=== PATIENT | female | born 1970 | race Caucasian/White ===

== ENCOUNTER → 2018-01-18 09:50 | Outpatient (CLI) | payer OTHER, MEDICARE, SELFPAY ==
--- NOTE | 2018-01-18 10:01 | XR_ITS ---
XR elbow LT min 3V COMPARISON: None HISTORY: Suspect olecranon bursitis TECHNIQUE: AP lateral and oblique views FINDINGS: The supracondylar humerus appears intact. However there are several small bone fragments with smooth mildly sclerotic borders the largest adjacent to the medial epicondyles the humerus just medial to the olecranon fossa. There are couple small bone fragments with smooth borders adjacent to the lateral epicondyle of the humerus. There is minimal spurring of the radial head. The soft tissues are normal with no abnormal fat pad sign noted. There is no soft tissue swelling of the olecranon bursa region. IMPRESSION: Probable posttraumatic changes involving the elbow and suprahilar humerus no acute fracture or soft tissue swelling noted
== END ==
PROVIDERS: PCP Nurse Practitioner Family; Visit Provider Nurse Practitioner Family
DX: M70.22 Olecranon bursitis, left elbow (principal)
CPT/HCPCS: 73080

== ENCOUNTER → 2018-09-09 08:59 | Outpatient (CLI) | payer OTHER, MEDICARE, SELFPAY ==
--- NOTE | 2018-09-09 09:04 | MM_ITS ---
MM Dig screening mamm BI w/CAD ORDERING PHYSICIAN : Danica Hawkins PATIENT AGE: 47 years GENDER: Female COMPARISON: August 2016,. August 2017, July 2012 INDICATION: ITS.REASON: SCREENING. Routine screening. No hormones no new complaints Family history. Maternal cousin. Paternal grandmother TECHNIQUE: Standard CC and MLO images were obtained. R2 CAD reviewed. FINDINGS: . Low-density fatty breast with generalized fatty replacement bilaterally. No new areas of significant concern. No dominant mass nor suspicious calcifications.. CAD computer review highlights no areas of concern either Stable benign calcifications bilaterally . Bilateral follow-up in one year recommended.. IMPRESSION: Negative, Stable bilateral mammogram . Follow-up in one year recommended Low-density breas with generalized fatty replacement. BI-RADS Category: 1 Negative RECOMMENDED FOLLOW-UP: 1YR 1 YEAR FOLLOW-UP (A letter has been sent to the patient regarding results of the study.)
== END ==
PROVIDERS: PCP Nurse Practitioner Family; Visit Provider Nurse Practitioner Family
DX: Z12.31 Encounter for screening mammogram for malignant neoplasm of breast (principal)
CPT/HCPCS: 77067

== ENCOUNTER → 2018-12-20 12:34 | Outpatient (CLI) | payer OTHER, MEDICARE, SELFPAY ==
--- NOTE | 2018-12-20 12:41 | XR_ITS ---
XR elbow LT min 3V HISTORY: ITS.REASON: left elbow pain/ swelling ORDERING PHYSICIAN: Stephenie Shaw MD PATIENT AGE: 48 years COMPARISON: 01/18/2018 FINDINGS: No acute fracture or dislocation is evident. Well-circumscribed calcifications are present along the medial epicondylar region and also dorsal to the distal aspect of the capitellum. These are not significant changed. These may represent multiple synovial osteochondromas or could represent sequela from prior trauma. No acute fracture or dislocation. No displaced fat pad. There is some spurring of the radial neck anteriorly. IMPRESSION: 1. No acute finding. 2. Multiple loose bodies of the elbow joint with mild osteoarthritic change
== END ==
PROVIDERS: PCP Nurse Practitioner Family; Visit Provider Orthopaedic Surgery
DX: M25.522 Pain in left elbow (principal)
CPT/HCPCS: 73080

== ENCOUNTER 2019-01-14 09:40 | Outpatient (RCR) | payer OTHER, MEDICARE, SELFPAY | END 2019-01-14 09:45 | disposition home or self-care (01) | LOC: OT 09:40 | PROVIDERS: Visit Provider Orthopaedic Surgery Hand Surgery | DX: M25.522 Pain in left elbow (principal) | CPT/HCPCS: 97014; 97165; G0283 ==

== ENCOUNTER → 2019-04-07 08:42 | Outpatient (CLI) | payer OTHER, MEDICARE, SELFPAY ==
--- NOTE | 2019-04-07 08:51 | XR_ITS ---
XR chest 2V HISTORY: ITS.REASON: COUGH ORDERING PHYSICIAN: Danica Hawkins APRN PATIENT AGE: 48 years COMPARISON: None FINDINGS: The cardiomediastinal silhouette and pulmonary vascularity are within normal limits. Increased markings are present in the right infrahilar region consistent with an area of patchy infiltrate. The remaining lungs are clear. No acute bony anomalies. IMPRESSION: Patchy infiltrate in the right infrahilar region
== END ==
PROVIDERS: PCP Family Medicine; Visit Provider Nurse Practitioner Family
DX: R05 Cough (principal)
CPT/HCPCS: 71046

== ENCOUNTER → 2019-07-14 12:05 | Outpatient (CLI) | payer OTHER, MEDICARE, SELFPAY ==
--- NOTE | 2019-07-14 12:15 | XR_ITS ---
PROCEDURE: XR SHOULDER RT MIN 2V CLINICAL INDICATION: RT SHOULDER PAIN COMPARISON: CXR CHEST(2 VIEWS-NOT PORTABLE) from 07/19/2017 FINDINGS: No fracture, dislocation, lytic change, or blastic change evident. No significant degenerative change. There is a circular density projecting over the lateral aspect of the scapula and could be due to artifact or perhaps a lymph node. IMPRESSION: No acute findings. Dictated by: Rocco Douglas MD 07/14/2019 15:04 Electronically signed by Rocco Douglas MD in [place] 07/14/2019 15:04
== END ==
PROVIDERS: PCP Nurse Practitioner Family; Visit Provider Nurse Practitioner Family
DX: M25.511 Pain in right shoulder (principal)
CPT/HCPCS: 73030

== ENCOUNTER → 2019-07-22 08:36 | Outpatient (CLI) | payer OTHER, MEDICARE, SELFPAY ==
--- NOTE | 2019-07-22 08:42 | XR_ITS ---
PROCEDURE: XR HUMERUS RT CLINICAL INDICATION: RT ARM PAIN COMPARISON: No exams were available for comparison FINDINGS: No fracture or dislocation. No lytic or blastic change. There is normal mineralization. The joint spaces are well-preserved. No significant degenerative/arthritic changes. No erosive changes evident. Other findings:None. IMPRESSION: Negative right humerus Dictated by: Rocco Douglas MD 07/22/2019 10:13 Electronically signed by Rocco Douglas MD in [place] 07/22/2019 10:13
== END ==
PROVIDERS: PCP Nurse Practitioner Family; Visit Provider Nurse Practitioner Family
DX: M79.601 Pain in right arm (principal)
CPT/HCPCS: 73060

== ENCOUNTER 2019-08-28 11:00 | Outpatient (RCR) | payer OTHER, MEDICARE, SELFPAY | END 2019-08-28 11:05 | disposition home or self-care (01) | LOC: OT 11:00 | PROVIDERS: PCP Nurse Practitioner Family; Visit Provider Orthopaedic Surgery | DX: M79.621 Pain in right upper arm (principal) | CPT/HCPCS: 97014; 97035; 97110; 97166; G0283 ==

== ENCOUNTER → 2019-09-19 07:48 | Outpatient (CLI) | payer OTHER, MEDICARE, SELFPAY ==
--- NOTE | 2019-09-19 07:51 | MM_ITS ---
PROCEDURE: MM DIG SCREENING MAMM BI W/CAD CLINICAL INDICATION: ROUTINE There is a history of breast cancer patient's maternal cousin and paternal grandmother. COMPARISON: [facility] DIG MAMM-SCREEN DIXIE from 08/30/2016 [facility] DIG MAMM-SCREEN DIXIE W/CAD from 09/03/2017 [facility] MM Dig screening mamm BI w/CAD from 09/09/2018 TECHNIQUE: Standard CC and MLO images were obtained. R2 CAD reviewed. FINDINGS: The breasts are composed primarily of fat with minimal scattered fibroglandular densities in each breast. There are few benign-appearing micro and macro calcifications in each breast. There is no suspicious lesion and no suspicious microcalcifications. IMPRESSION: Fatty type breast parenchyma with no suspicious lesions seen BI-RAD Category: 2 Benign Finding(s) FOLLOW-UP: 1YR 1 Year Follow-up (A letter has been sent to the patient regarding results of the study.) Dictated by: Dr. Isaias Sinha MD 09/21/2019 15:[address] Isaias Sinha MD in [place] 09/21/2019 15:32
== END ==
PROVIDERS: PCP Nurse Practitioner Family; Visit Provider Nurse Practitioner Family
DX: Z12.31 Encounter for screening mammogram for malignant neoplasm of breast (principal)
CPT/HCPCS: 77067

== ENCOUNTER → 2020-04-02 13:23 | Outpatient (CLI) | payer OTHER, MEDICARE, SELFPAY ==
--- NOTE | 2020-04-02 13:27 | US_ITS ---
PROCEDURE: US THYROID CLINICAL INDICATION: HYPOTHYROIDISM,PARTIAL THYROIDECTOMY,H/O THYROID CA COMPARISON: THY US THYROID from 08/30/2016 FINDINGS: There has been a prior right thyroidectomy and partial removal of the isthmus. The left lobe measures 3.6 x 1 x 1.4 cm with some heterogeneous echogenicity. There is a slightly hypoechoic 6 x 4 mm nodule in the upper pole and a mixed heterogeneous nodule measuring 5 x 6 mm in the lower pole. These are T rads level 2. Suggest 6 month follow-up IMPRESSION: Prior right thyroidectomy. Two small nodules on the left. Recommend six-month follow-up Dictated by: Rocco Douglas MD 04/03/2020 11:07 Electronically signed by Rocco Douglas MD in [place] 04/03/2020 11:07
== END ==
PROVIDERS: PCP Nurse Practitioner Family; Visit Provider Nurse Practitioner Family
DX: E03.9 Hypothyroidism, unspecified (principal); Z90.09 Acquired absence of other part of head and neck; Z85.850 Personal history of malignant neoplasm of thyroid
CPT/HCPCS: 76536

== ENCOUNTER → 2020-09-03 10:27 | Outpatient (CLI) | payer OTHER, MEDICARE, SELFPAY ==
--- NOTE | 2020-09-03 10:32 | US_ITS ---
PROCEDURE: US KIDNEY CLINICAL INDICATION: HX OF RENAL CALCULI, RT FLANK PAIN COMPARISON: No exams were available for comparison FINDINGS: The right kidney is [id number]. No hydronephrosis, cortical thinning, or renal mass or perinephric fluid collection is evident. The left kidney is [id number]. No hydronephrosis, cortical thinning, or renal mass or perinephric fluid collection is evident. There is some mild nonspecific lobulation of the cortex of the left kidney inferiorly IMPRESSION: Unremarkable bilateral renal ultrasound Dictated by: Rocco Douglas MD 09/03/2020 11:22 Rocco Douglas MD in [place] 09/03/2020 11:22
== END ==
PROVIDERS: PCP Family Medicine; Visit Provider Nurse Practitioner Family
DX: R10.9 Unspecified abdominal pain (principal); Z87.442 Personal history of urinary calculi
CPT/HCPCS: 76770

== ENCOUNTER → 2020-09-10 16:07 | Outpatient (CLI) | payer OTHER, MEDICARE, SELFPAY ==
--- NOTE | 2020-09-10 16:09 | MM_ITS ---
PROCEDURE: MM DIG SCREENING MAMM BI W/CAD Digital Breast Tomosynthesis Included CLINICAL INDICATION: SCREENING There is a history of breast cancer in the patient's maternal cousin and paternal grandmother. COMPARISON: MG [facility] DIG MAMM-SCREEN DIXIE W/CAD from 09/03/2017 MG [facility] MM Dig screening mamm BI w/CAD from 09/09/2018 MG MM DIG SCREENING MAMM BI W/CAD from 09/19/2019 TECHNIQUE: Standard CC and MLO images and 3D Tomosynthesis was obtained. R2 CAD reviewed. FINDINGS: The breasts are composed primarily of fat with minimal scattered fibroglandular densities in each breast. There are few benign-appearing micro and macrocalcifications in each breast. There is no suspicious lesion in either breast there is a stable tiny benign-appearing nodular density lower inner quadrant left breast. There is no suspicious lesion and no suspicious microcalcifications. IMPRESSION: Type breast parenchyma with no suspicious lesions seen BI-RAD Category: 2 Benign Finding(s) FOLLOW-UP: 1YR 1 Year Follow-up (A letter has been sent to the patient regarding results of the study.) Dictated by: Dr. Isaias Sinha MD 09/14/2020 13:54 Dr. Isaias Sinha MD in [place] 09/14/2020 13:54
== END ==
PROVIDERS: PCP Nurse Practitioner Family; Visit Provider Nurse Practitioner Family
DX: Z12.31 Encounter for screening mammogram for malignant neoplasm of breast (principal)
CPT/HCPCS: 77063; 77067

== ENCOUNTER → 2021-03-14 16:01 | Outpatient (CLI) | payer OTHER, MEDICARE, SELFPAY ==
[2021-03-14 17:05] LABS: Alanine Aminotransferase 23 U/L (12-78); Albumin Level 4.4 g/dl (3.5-5.0); Albumin/Globulin Ratio 1.5 (1.1-1.8); Alkaline Phosphatase 131 U/L (38-126); Anion Gap 11.1 mEq/L (5-15); Aspartate Amino Transferase 28 U/L (14-36); Bilirubin,Total 0.5 mg/dl (0.2-1.3); Blood Urea Nitrogen 20 mg/dl (7-17); Calcium 9.9 mg/dl (8.4-10.2); Carbon Dioxide 28 mmol/L (22.0-30.0); Chloride 104 mmol/L (98-107); Estimated Glomerular Filt Rate 76 ml/min (>60); GFR (African American) 92 ML/MIN (>60); Globulin 2.9 g/dL (1.3-3.2); Glucose 93 mg/dl (74-100); Potassium 4.1 mmoL/L (3.5-5.1); Sodium 139 mmol/L (136-145); Total Protein,Serum 7.3 g/dl (6.3-8.2)
[2021-03-14 17:21] LABS: Free T4 (Free Thyroxine) 1.43 ng/dl (0.78-2.19)
[2021-03-14 17:36] LABS: Thyroid Stimulating Hormone 0.41 uIU/mL (0.465-4.68)
[2021-03-16 14:18] LABS: Triiodothyronine (T3) Free 2.6 pg/mL (2.0-4.4)
== END ==
PROVIDERS: Visit Provider Nurse Practitioner Family
DX: E03.9 Hypothyroidism, unspecified (principal); R60.9 Edema, unspecified
CPT/HCPCS: 36415; 80053; 84439; 84443; 84481

== ENCOUNTER → 2021-04-26 09:56 | Outpatient (POV) | payer OTHER, MEDICARE, SELFPAY | PROVIDERS: Visit Provider Dermatology | DX: Z00.00 Encounter for general adult medical examination without abnormal findings (principal) ==

== ENCOUNTER → 2021-09-07 12:23 | Outpatient (CLI) | payer MEDICARE, SELFPAY ==
[2021-09-07 13:06] LABS: Basophils # 0.1 K/mm3 (0-0.2); Basophils % 0.8 % (0.1-2.0); Eosinophils # 0.1 K/mm3 (0.0-0.4); Eosinophils % 1.2 % (0.1-12.0); Hematocrit 44.2 % (37.0-47.0); Hemoglobin 14.5 g/dL (12.2-16.2); Lymphocytes # 1.9 K/mm3 (0.7-4.5); Lymphocytes % 23.9 % (10-50); Mean Corpuscular HGB Conc 32.7 g/dL (31.8-35.4); Mean Corpuscular Hemoglobin 30.2 pg (27.0-31.2); Mean Corpuscular Volume 92.5 fl (81-99); Mean Platelet Volume 8.6 fl (7.4-10.4); Monocytes # 0.3 K/mm3 (0.1-1.0); Monocytes % 4.3 % (1.7-9.3); Neutrophils # 5.6 K/mm3 (1.8-7.8); Neutrophils % 69.9 % (37.0-80.0); Platelet Count 319 K/mm3 (142-424); Red Blood Count 4.78 M/mm3 (4.20-5.40); Red Cell Distribution Width 12.7 % (11.5-17.5); White Blood Count 8.1 K/mm3 (4.8-10.8)
[2021-09-07 15:13] LABS: Free T4 (Free Thyroxine) 1.92 ng/dl (0.78-2.19)
[2021-09-07 15:14] LABS: 25-OH Vitamin D, Total 35.6 ng/mL (30-100)
[2021-09-07 15:34] LABS: Thyroid Stimulating Hormone < 0.02 uIU/mL (0.465-4.68)
[2021-09-07 15:38] LABS: Ferritin 43.7 ng/ml (6.24-137)
[2021-09-09 09:24] LABS: Triiodothyronine (T3) Free 3.6 pg/mL (2.0-4.4)
== END ==
PROVIDERS: Visit Provider Nurse Practitioner Family
DX: D50.9 Iron deficiency anemia, unspecified (principal); E04.1 Nontoxic single thyroid nodule; E03.9 Hypothyroidism, unspecified; E55.9 Vitamin D deficiency, unspecified
CPT/HCPCS: 36415; 82306; 82728; 84439; 84443; 84481; 85025

== ENCOUNTER → 2021-09-16 14:48 | Outpatient (CLI) | payer MEDICARE, SELFPAY ==
--- NOTE | 2021-09-16 14:53 | MM_ITS ---
PROCEDURE INFORMATION: Exam: MG Bilateral Screening 3D Mammography Exam date and time: 09/16/2021 2:53 PM Age: 50 years old Clinical indication: Screening exam; Family history of breast cancer TECHNIQUE: Imaging protocol: Bilateral screening tomosynthesis and 2D mammography including computer-aided detection (CAD) when performed. COMPARISON: 1. MG MM DIG SCREENING MAMM BI W/CAD 09/10/2020 4:22 PM 2. MG MM DIG SCREENING MAMM BI W/CAD 09/19/2019 8:11 AM 3. MG [facility] MM Dig screening mamm BI w/CAD 09/09/2018 9:26 AM FINDINGS: MAMMOGRAPHY: Breast composition: There are scattered areas of fibroglandular density. Mass: No suspicious masses. Architectural distortion: No suspicious distortion. Calcifications: No suspicious calcifications. Asymmetric density: None. Skin thickening: None. Axillary adenopathy: None. IMPRESSION: No mammographic evidence of malignancy. Annual screening is recommended unless otherwise clinically indicated. ASSESSMENT: BI-RADS Category 1: Negative
== END ==
PROVIDERS: PCP Nurse Practitioner Family; Visit Provider Nurse Practitioner Family
DX: Z12.31 Encounter for screening mammogram for malignant neoplasm of breast (principal)
CPT/HCPCS: 77063; 77067

== ENCOUNTER → 2021-09-20 15:51 | Outpatient (CLI) | payer MEDICARE, SELFPAY | PROVIDERS: PCP Nurse Practitioner Family; Visit Provider Nurse Practitioner | DX: U07.1 COVID-19 (principal) | CPT/HCPCS: C9803; U0003; U0005 ==

== ENCOUNTER 2021-10-14 05:45 | Inpatient (IN) | payer MEDICARE, SELFPAY ==
[2021-10-14] VITALS (18 sets, daily range): BP systolic 92–147; BP diastolic 56–93; PULSE 56–88; RESP 16–22; TEMP 36.6–37.2; O2SAT 95–100; BMI 36.7; BMI 36.8
--- NOTE | 2021-10-14 | IR_ITS ---
APPROVED REPORT Patient Location: [employer] Technical Officer: MANFRED Shelton RT (R) PROCEDURES Left heart catheterization Left ventriculogram Selective coronary angiogram Thrombectomy to the mid dominant right coronary artery followed by drug-eluting stenting to the mid to distal dominant right coronary INDICATION Acute inferior lateral ST elevation myocardial infarction, Coronary artery disease Informed consent was obtained prior to the procedure. COMPLICATIONS None Estimated Blood Loss: Less than 10 mls TECHNIQUE One percent lidocaine used to anesthetize the right anterior aspect of the wrist. The right radial artery was accessed via the Seldinger technique. A 6 Bulgarian sheath was placed in the right radial artery. 2.5 mg of verapamil, 800 mcg of nitroglycerin, 1mg Lidocaine and 5000 U Heparin were given through the arterial sheath. The Cvergenx 1 catheter was also used to perform selective coronary angiogram. Choice PT extra-support wire was used to traverse the occlusion and a penumbra mechanical aspiration catheter was used to remove a large thrombus and restored SCOT-3 flow. Following this a 3.5 x 26 mm resolute Piedmont stent was deployed at 14 zenon reducing the critical stenosis to 0%. At the end of the procedure the same catheter was used to perform left coronary angiography as well as left heart catheterization and left ventriculogram at the end of the procedure the sheath was removed good hemostasis was achieved using Traclet band. At the end the procedure the patient was transferred to the postop holding her stable condition. ANGIOGRAPHIC RESULTS The left main artery Normal The left anterior descending artery Mild 10% luminal irregularities The circumflex artery Nondominant mild 10% luminal irregularities The right coronary artery Large dominant and initially occluded at mid vessel. Following drug-eluting stenting the vessel had mild 10% luminal irregularities with wide patency and in line SCOT-3 flow into a large posterior lateral branch and large posterior descending artery The LEACH ventriculogram reveals Ejection fraction 50% with inferior hypokinesis The left ventricular end-diastolic pressure 20 mmHg IMPRESSION Acute occlusion of a large dominant right coronary artery with successful mechanical aspiration followed by drug-eluting stenting restoring SCOT-3 flow Hypokinesis of the inferior wall Mildly elevated LVEDP PLAN 1. Brilinta 90 twice daily plus aspirin 81 mg daily 2. Supportive care for the next 48 hours 3. Official echocardiogram to better quantitate ejection fraction 4. GENA inhibitor's and beta-blockers once hemodynamically stable 5. LDL of 55 to be achieved with high intensity statin 6. Cardiac rehabilitation Electronically signed by : Arley Tolentino MD 10/14/2021 06:52:36
--- NOTE | 2021-10-14 05:54 | XR_ITS ---
PROCEDURE INFORMATION: Exam: XR Chest Exam date and time: 10/14/2021 5:54 AM Age: 51 years old Clinical indication: Sternal or substernal pain; Additional info: Cp TECHNIQUE: Imaging protocol: XR of the chest. Views: 1 view. COMPARISON: CR CXR CHEST(2 VIEWS-NOT PORTABLE) 07/19/2017 12:33 PM FINDINGS: Lungs: Unremarkable. No consolidation. Pleural spaces: Unremarkable. No pleural effusion. No pneumothorax. Heart/Mediastinum: Unremarkable. No cardiomegaly. Bones/joints: Unremarkable. IMPRESSION: No acute findings.
--- NOTE | 2021-10-14 05:56 | PC.NURSE ---
0540 EKG performed with questionable ST elevation noted 0541- reviewed EKG and STEMI alert called. Mason contacted [facility] and orders for 180mg Brilinta PO, aspirin 324mg PO, and 10,000units heparin IV. Pt placed in gown and Zoll monitor applied. Pt groins and right wrist prepped using trimmers. Pt placed on 2LNC and cath consent signed by pt.
[2021-10-14 05:59] LABS: Basophils # 0.1 K/mm3 (0-0.2); Eosinophils # 0.2 K/mm3 (0.0-0.4); Eosinophils % 1.7 % (0.1-12.0); Hematocrit 40.8 % (37.0-47.0); Hemoglobin 13.5 g/dL (12.2-16.2); Lymphocytes # 2.6 K/mm3 (0.7-4.5); Lymphocytes % 24.9 % (10-50); Mean Corpuscular HGB Conc 33.1 g/dL (31.8-35.4); Mean Corpuscular Hemoglobin 29.4 pg (27.0-31.2); Mean Corpuscular Volume 88.7 fl (81-99); Monocytes # 0.4 K/mm3 (0.1-1.0); Monocytes % 3.4 % (1.7-9.3); Neutrophils # 7.3 K/mm3 (1.8-7.8); Platelet Count 384 K/mm3 (142-424); Red Blood Count 4.59 M/mm3 (4.20-5.40); Red Cell Distribution Width 13.5 % (11.5-17.5); White Blood Count 10.6 K/mm3 (4.8-10.8)
[2021-10-14 06:00] LABS: Coronavirus 19, PCR Not Detected (NotDetected); Influenza A, PCR Not Detected (NotDetected); Influenza B, PCR Not Detected (NotDetected)
--- NOTE | 2021-10-14 06:01 | HMH.EDCP ---
ED Disposition Clinical Impression: Hypothyroidism (acquired), Obesity (BMI 30-39.9) ST elevation myocardial infarction (STEMI) Qualifiers: Involved coronary artery: unspecified coronary artery Qualified Code(s): I21.3 - ST elevation (STEMI) myocardial infarction of unspecified site Disposition: Admitted As Inpatient Condition on Discharge: Serious - Critical Care Critical Care Time: No Attestation: On , the high probability of a clinically significant, sudden or life threatening deterioration of the following system(s) required my full and direct attention, intervention and personal management. The time I documented below is in addition to time spent performing reported procedures but includes the following listed in this critical care notation. Medical Decision Making - Medical Records Medical records reviewed: Yes: I reviewed the patient's medical records. - Arias Inquiry Pt receiving controlled substance: No Vital Signs: 10/14/21 05:46 Temperature 98.1 F Temperature Source Oral Pulse Rate [Apical] 62 Respiratory Rate 22 Blood Pressure [Right Arm] 144/85 H Blood Pressure Mean [Right Arm] 104 Blood Pressure Source [Right Arm] Automatic Cuff Blood Pressure Position [Right Arm] Sitting 02 Sat by Pulse Oximetry 97 Oxygen Delivery Method Room Air - Lab Data Lab results reviewed: Yes: I reviewed the patient's lab results. Lab Results 10/14/21 05:48: WBC 10.6, RBC 4.59, Hgb 13.5, Hct 40.8, MCV 88.7, MCH 29.4, MCHC 33.1, RDW 13.5, Plt Count 384, MPV 8.0, Neut % (Auto) 69.0, Lymph % (Auto) 24.9, [place] % (Auto) 3.4, Eos % (Auto) 1.7, Baso % (Auto) 1.0, Neut # (Auto) 7.3, Lymph # (Auto) 2.6, [place] # (Auto) 0.4, Eos # (Auto) 0.2, Baso # (Auto) 0.1 10/14/21 05:48: Sodium 140, Potassium 3.4 L, Chloride 103, Carbon Dioxide 26, Anion Gap 14.4, BUN 13, Creatinine 0.80, Estimated Creat Clear 127, Estimated GFR 76, Est GFR ( Amer) 92, Glucose 156 H, Calcium 9.7, Total Bilirubin 0.4, Direct Bilirubin 0.1, Conjugated Bilirubin 0.0, Indirect Bilirubin 0.3, Unconjugated Bilirubin 0.2, AST 32, ALT 22, Alkaline Phosphatase 128 H, Troponin I 0.02, Total Protein 7.7, Albumin 4.3 10/14/21 05:58: SARS-CoV-2 (PCR) Not detected, Influenza A Untype (PCR) Not detected, Influenza Type B (PCR) Not detected Result diagrams: 10/14/21 05:48 10/14/21 05:48 Orders (Tests/Meds): ED MEDICATIONS Generic Name Dose Route Start Last Admin Trade Name Freq PRN Reason Stop Dose Admin Diphenhydramine HCl 50 mg 10/14/21 06:12 Diphenhydramine 50mg/Ml Vial IV 10/14/21 06:13 ONCE ONE Fentanyl Citrate 25 mcg 10/14/21 06:12 Fentanyl 100mcg/2ml Vial IV 10/15/21 06:12 Q3MINP PRN Moderate to Severe Pain Fentanyl Citrate 50 mcg 10/14/21 06:12 Fentanyl 100mcg/2ml Vial IV 10/15/21 06:12 Q3MINP PRN Moderate to Severe Pain Fentanyl Citrate 25 mcg 10/14/21 06:12 Fentanyl 250mcg/5ml Vial IV 10/15/21 06:12 Q3MINP PRN Moderate to Severe Pain Fentanyl Citrate 50 mcg 10/14/21 06:12 Fentanyl 250mcg/5ml Vial IV 10/15/21 06:12 Q3MINP PRN Moderate to Severe Pain Flumazenil 0.2 mg 10/14/21 06:12 Flumazenil 0.1mg/Ml 5ml Vial IV 10/14/21 23:00 NEEDED PRN Sedation Heparin Sodium (Porcine) 10,000 unit 10/14/21 06:12 Heparin 1,000 Units/Ml 10ml Vial (Rug Repairer) IV 10/14/21 10:12 NEEDED PRN [facility] Customer Care Specialist Heparin Sodium/Sodium Chloride 3,000 unit 10/14/21 06:12 Heparin 1,000 Units/500ml Ns (Rug Repairer) IV 10/14/21 06:13 ONCE ONE Sodium Chloride 1,000 mls @ 25 mls/hr 10/14/21 06:15 Sod Chlor 0.9% 1000ml Bag IV 10/15/21 06:12 .Q25H ADAM Lidocaine HCl 20 ml 10/14/21 06:12 Lidocaine 1% 10ml Mdv IJ 10/14/21 06:13 ONCE ONE Lidocaine HCl 20 ml 10/14/21 06:12 Lidocaine 1% 5ml Pf Vial IJ 10/14/21 06:13 ONCE ONE Midazolam HCl 1 mg 10/14/21 06:12 Midazolam 2mg/2ml Vial IV 10/15/21 06:12 Q3MINP
[2021-10-14 06:03] LABS: Chloride 103 mmol/L (98-107); Potassium 3.4 mmoL/L (3.5-5.1); Sodium 140 mmol/L (136-145)
[2021-10-14 06:05] LABS: Bilirubin,Unconjugated 0.2 mg/dL (0.0-1.1); Blood Urea Nitrogen 13 mg/dl (7-17); Creatinine Clearance Estimated 127 mL/min (50-200); Estimated Glomerular Filt Rate 76 ml/min (>60); GFR (African American) 92 ML/MIN (>60)
[2021-10-14 06:06] LABS: Alanine Aminotransferase 22 U/L (12-78); Albumin Level 4.3 g/dl (3.5-5.0); Alkaline Phosphatase 128 U/L (38-126); Anion Gap 14.4 mEq/L (5-15); Aspartate Amino Transferase 32 U/L (14-36); Bilirubin,Direct 0.1 mg/dl (0.0-0.4); Bilirubin,Indirect 0.3 mg/dL (0.0-0.9); Bilirubin,Total 0.4 mg/dl (0.2-1.3); Calcium 9.7 mg/dl (8.4-10.2); Carbon Dioxide 26 mmol/L (22.0-30.0); Glucose 156 mg/dl (74-100); Total Protein,Serum 7.7 g/dl (6.3-8.2)
--- NOTE | 2021-10-14 06:16 | PC.NURSE ---
[facility] is [facility] with Actuarial Internship and septic tank service technician. Patient is attached to zole and monitors. Alert and oriented upon transfer.
[2021-10-14 06:18] LABS: Troponin I 0.02 ng/ml (0.00-0.034)
[2021-10-14 06:23] LABS: Chol/HDL Ratio 4.7 (1-3.5); Cholesterol 189 mg/dl (140-200); HDL Cholesterol 40 mg/dl (40-60); T4 (Thyroxine) 13.1 ug/dl (5.53-11.0); Triglycerides 245 mg/dl (30-150); VLDL Cholesterol 49 mg/dL (0-40)
[2021-10-14 06:37] LABS: Thyroid Stimulating Hormone 0.37 uIU/mL (0.465-4.68)
[2021-10-14 07:15] LABS: CATHL Activated Clotting Time > 400 SEC (74-125)
--- NOTE | 2021-10-14 07:15 | ECG_ITS ---
APPROVED REPORT Exam: Resting ECG HR:57 bpm ECG Measurements Heart Rate 57 AXES WA 148 P -9 QRSd 98 QRS 36 QT 398 T 102 QTc 387 Conclusion Age and gender specific ECG analysis Sinus bradycardia Inferior infarct, possibly acute ACUTE UT Consider right ventricular involvement in acute inferior infarct Abnormal ECG Electronically signed by : Loco Finn MD 10/15/2021 08:37:23
--- NOTE | 2021-10-14 07:20 | HMH.PHAINT ---
MEDICATION RECONCILIATION COMPLETED ON PATIENT USING EXTERNAL FILL HISTORY FROM PHARMACY. -CELIA MOSQUERA, DERIRCKD
--- NOTE | 2021-10-14 08:28 | CA_ITS ---
APPROVED REPORT EXAM: Comprehensive 2D, Doppler, and color-flow Echocardiogram Supervisor Electron Tube Processing: Ingrid Foster RDCS Ht: 5 ft 4 in Wt: 214lbs BSA: 2.01 BP: 144/85 mmHg Indications: STEMI 2D Dimensions LVOT 1.95 cm (M/F) 1.5-2.5 M-Mode Dimensions RVDd 2.45 cm (0.9-2.6) LA Diam 4.36 cm (1.9-4.0) LVDd 5.67 cm (3.5-5.7) Ao Diam 3.07 cm (2.0-3.7) LVDs 4.15 cm (3.5-5.7) IVSd 0.68 cm (0.6-1.1) PWd 0.80 cm (0.6-1.1) EF (Teich) 51.70% FS 26.80% EDV (Teich) 158.10 mL TAPSE 2.22 (<1.7) ESV (Teich) 76.40 mL LV Diastology E Decel Time 160.00 (160-240 msec) E/A Ratio 1.1 MED E' 6.70 (< 7 cm/sec) E'/MED E' Ratio 12.04 (>14) LAT E' 8.00 (<10 cm/sec) E/LAT E' Ratio 10.09 (>14) Mitral Valve MV E Max Nitish. 81.00 (40-130 cm/s) MV A Velocity 76.00 (40-130 cm/s) E/A Ratio 1.07 MV Decel. Time 160.00 (160-240 ms) MV PHT 47.00 ms Left Ventricle Left atrium is normal size, left ventricle is normal size, there is no concentric left ventricular hypertrophy, visually estimated ejection fraction 50% with marked hypokinesis involving the basal septum and inferior basal wall. Diastolic parameters are inconclusive. Right Ventricle Right atrium and right ventricle are normal size and contractility. Aortic Valve Aortic valve is minimally thickened and fibrosed there is no aortic stenosis or aortic insufficiency. Mitral Valve Mitral valve grossly normal, there is mild mitral regurgitation. Tricuspid Valve Tricuspid valve grossly normal, there is mild tricuspid regurgitation, tricuspid regurgitation jet velocity is inadequate for calculation of the right ventricular systolic pressure. Pulmonic Valve Pulmonic valve is poorly visualized. Great Vessels Aortic root is normal size. Inferior vena cava is normal size with normal inspiratory collapse. Pericardium No significant pericardial effusion noted. Conclusion 1. Normal left ventricular size, preserved left ventricular systolic function, visually estimated ejection fraction 50% with segmental wall motion abnormality described above, diastolic parameters are inconclusive. 2. Mild mitral and tricuspid regurgitation. 3. No significant pericardial effusion noted. 4. Inferior vena cava is normal size with normal inspiratory collapse. Electronically signed by : Romain Suresh MD 10/14/2021 15:54:27
--- NOTE | 2021-10-14 08:57 | HMH.CNCARD ---
History of Present Illness Consult date: 10/14/21 Requesting physician: Loco Ames Consult reason: chest pain Chief complaint: STEMI Additional Medical History:: 1. Hypothyroidism, on replacement therapy 2. Family history of coronary artery disease in her mother with an IA in her early 40s who in her 70s related to renal cancer 3. History of tobacco use discontinued many years ago 4. Inferior ST elevation IA, 10/14/2021 A. Status post thrombectomy and JERRY to RCA ANGIOGRAPHIC RESULTS The left main artery Normal The left anterior descending artery Mild 10% luminal irregularities The circumflex artery Nondominant mild 10% luminal irregularities The right coronary artery Large dominant and initially occluded at mid vessel. Following drug-eluting stenting the vessel had mild 10% luminal irregularities with wide patency and in line SCOT-3 flow into a large posterior lateral branch and large posterior descending artery The LEACH ventriculogram reveals Ejection fraction 50% with inferior hypokinesis The left ventricular end-diastolic pressure 20 mmHg IMPRESSION Acute occlusion of a large dominant right coronary artery with successful mechanical aspiration followed by drug-eluting stenting restoring SCOT-3 flow Hypokinesis of the inferior wall Mildly elevated LVEDP PLAN 1. Brilinta 90 twice daily plus aspirin 81 mg daily 2. Supportive care for the next 48 hours 3. Official echocardiogram to better quantitate ejection fraction 4. GENA inhibitor's and beta-blockers once hemodynamically stable 5. LDL of 55 to be achieved with high intensity statin 6. Cardiac rehabilitation Electronically signed by : Arley Tolentino MD 10/14/2021 06:52:36 History of present illness: 51-year-old white female with prior tobacco use and hypothyroidism presented to the emergency department this a.m. after getting up to go to the bathroom and noticing indigestion type symptoms which persisted and included arm discomfort. EKG in the ER revealed evidence of inferior ST elevation IA and was taken urgently to the cardiac Camera Machinist where thrombectomy and subsequent stent placement was performed. Patient denies any recent exertional type symptoms. She is on no medications for hypertension or hyperlipidemia. She discontinued tobacco use many years ago. Currently all of her symptoms have resolved. Telemetry shows short runs of ventricular tachycardia likely related to reperfusion effect. [facility] History Medical History: Reports:: Cancer, Migraine *Have you ever received a pneumonia vaccine?: No *Have you received a flu vaccine this season?: Yes Other Medical History: Reports: Thyroid Disease Laterality Cases: Right: Carpal Tunnel Release, Other Other Surgeries: Yes: Cholecystectomy, , Hysterectomy-Total, Other Amputation: No Fractures: No - *Social History Smoking Status: Current every day smoker Tobacco Type: cigarettes # Packs/Day (cigarettes): 5 Alcohol Intake: never Substance Use Type: denies use *Occupational Status:: employed, unemployed *Travel in the last 8 weeks: Inside the [place] Family Hx:: Thyroid Disorder, Kidney Disease Meds Home Medications Medication Instructions Recorded Confirmed Type Levothyroxine Sodium 100 mcg PO DAILY 10/14/21 10/14/21 History [Levothyroxine 100mcg (0.1MG) Tab] Allergies Allergy/AdvReac Type Severity Reaction Status Date / Time cefaclor [From CECLOR] Allergy Intermediate I-HIVES Verified 09/02/20 14:57 ciprofloxacin [From CIPRO] Allergy Intermediate I-HIVES Verified 09/02/20 14:57 duloxetine [From CYMBALTA] Allergy Mild NA-NAUSEA/V Verified 09/02/20 14:57 OMITING Exam Vital signs and Labs for Last 24 Hours: Temp Pulse Resp BP Pulse Ox 98.0 F 64 16 122/78 96 10/14/21 07:04 10/14/21 08:15 10/14/21 08:15 10/14/21 08:15 10/14/21 08:15 Laboratory Results - last 24 hr 10/14/21 05:48: WBC 10.6, RBC 4.59, Hgb 13.5, Hct 40.8, MCV 88.7, MCH 29.4, MCHC
--- NOTE | 2021-10-14 10:31 | PC.NURSE ---
Pt arrived to the floor at this time
--- NOTE | 2021-10-14 11:11 | PC.NURSE ---
Pt given medication information regarding new meds ordered per MD. This RN explained the purpose of these medications and side effects to look out for. Pt had no questions or concerns.
--- NOTE | 2021-10-14 12:23 | HMH.HP ---
*Admission Date: 10/14/21 *Chief complaint: chest discomfort *History of present illness: 51-year-old white female with prior tobacco use and hypothyroidism presented to the emergency department this a.m. after getting up to go to the bathroom and noticing indigestion type symptoms which persisted and included arm discomfort. EKG in the ER revealed evidence of inferior ST elevation CO and was taken urgently to the [facility] where thrombectomy and subsequent stent placement was performed. AFter intervention all of her symptoms have resolved. [facility] History I have reviewed the patient's past medical history: Yes Medical History: Reports:: Cancer, Hyperlipidemia, Hypertension, Migraine Denies:: Diabetes Mellitus Type 1, Diabetes Mellitus Type 2 *Have you ever received a pneumonia vaccine?: Yes *Have you received a flu vaccine this season?: No Other Medical History: Reports: Sinus Problems, Thyroid Disease Laterality Cases: Right: Carpal Tunnel Release, Other, Bilateral: Partial Knee Replacement Other Surgeries: Yes: Cholecystectomy, , Hysterectomy-Total, Other Amputation: No Fractures: No - *Social History Smoking Status: Current every day smoker Tobacco Type: e-cigarettes # Packs/Day (cigarettes): 1 Alcohol Intake: never Substance Use Type: denies use *Occupational Status:: unemployed Household Members: spouse, children *Travel in the last 8 weeks: Inside the [place] Family Hx:: Heart Attack, Hyperlipidemia, Hypertension Review of Systems - Review of Systems Review of systems:: pertinent systems reviewed and negative unless documented below - *Neurologic Denies seizure-like activity Meds Home Medications Medication Instructions Recorded Confirmed Type Levothyroxine Sodium 100 mcg PO DAILY 10/14/21 10/14/21 History [Levothyroxine 100mcg (0.1MG) Tab] Allergies Allergy/AdvReac Type Severity Reaction Status Date / Time cefaclor [From CECLOR] Allergy Intermediate I-HIVES Verified 09/02/20 14:57 ciprofloxacin [From CIPRO] Allergy Intermediate I-HIVES Verified 09/02/20 14:57 duloxetine [From CYMBALTA] Allergy Mild NA-NAUSEA/V Verified 09/02/20 14:57 OMITING Exam Vital signs and Labs for Last 24 Hours: Temp Pulse Resp BP Pulse Ox 98.0 F 56 L 16 108/66 L 100 10/14/21 07:04 10/14/21 09:45 10/14/21 09:45 10/14/21 09:45 10/14/21 09:45 Laboratory Results - last 24 hr 10/14/21 05:48: WBC 10.6, RBC 4.59, Hgb 13.5, Hct 40.8, MCV 88.7, MCH 29.4, MCHC 33.1, RDW 13.5, Plt Count 384, MPV 8.0, Neut % (Auto) 69.0, Lymph % (Auto) 24.9, Towner % (Auto) 3.4, Eos % (Auto) 1.7, Baso % (Auto) 1.0, Neut # (Auto) 7.3, Lymph # (Auto) 2.6, Towner # (Auto) 0.4, Eos # (Auto) 0.2, Baso # (Auto) 0.1 10/14/21 05:48: Sodium 140, Potassium 3.4 L, Chloride 103, Carbon Dioxide 26, Anion Gap 14.4, BUN 13, Creatinine 0.80, Estimated Creat Clear 127, Estimated GFR 76, Est GFR ( Amer) 92, Glucose 156 H, Calcium 9.7, Total Bilirubin 0.4, Direct Bilirubin 0.1, Conjugated Bilirubin 0.0, Indirect Bilirubin 0.3, Unconjugated Bilirubin 0.2, AST 32, ALT 22, Alkaline Phosphatase 128 H, Troponin I 0.02, Total Protein 7.7, Albumin 4.3, TSH 0.37 L, Thyroxine (T4) 13.1 H 10/14/21 05:48: Triglycerides 245 H, Cholesterol 189, LDL Cholesterol Direct 94.90 L, VLDL Cholesterol 49 H, HDL Cholesterol 40, Cholesterol/HDL Ratio 4.7 H 10/14/21 05:58: SARS-CoV-2 (PCR) Not detected, Influenza A Untype (PCR) Not detected, Influenza Type B (PCR) Not detected 10/14/21 07:33: Activated Clotting Time > 400 H* I & O for Last 24 hours: Intake & Output 10/12/21 10/13/21 10/14/21 10/15/21 11:59 11:59 11:59 11:59 Weight 214 lb - Constitutional no acute distress - *Routine HEENT Exam Head: Present: normocephalic Eye: Present: EOMI, PERRL ENT: Present: mucous membranes moist - *Routine Neck Exam Present: supple. Absent: lymphadenopathy - *Routine Respiratory Exam Present: CTA bilaterally - *Routine Cardiovascular Ex
--- NOTE | 2021-10-14 17:36 | PC.NURSE ---
Pt called out c/o hard stools and is requesting a stool softener. MD Nolasco paged, one time dose of senna/docusate ordered and carried out. Right radial cath site remains CDI. Pt has had no c/o chest pain. VSS. Pt remains on RA and is ambulating t/o room independently. No other acute changes or complaints, will continue to monitor.
[2021-10-15] VITALS (8 sets, daily range): BP systolic 93–127; BP diastolic 57–73; PULSE 60–90; RESP 16–18; TEMP 36.6–37.4; O2SAT 97–100; BMI 36.3
--- NOTE | 2021-10-15 07:47 | HMH.ACPN2 ---
Internal Medicine - PN: Subj *Date: 10/15/21 *Time: 07:47 Interval history: No complaints this morning. Patient is feeling well. She denies chest pain or dyspnea Exam Vital signs and Labs for Last 24 Hours: Temp Pulse Resp BP Pulse Ox 98.1 F 64 16 93/57 L 97 10/15/21 04:00 10/15/21 04:00 10/15/21 04:00 10/15/21 04:00 10/15/21 04:00 I & O for Last 24 hours: Intake & Output 10/12/21 10/13/21 10/14/21 10/15/21 11:59 11:59 11:59 11:59 Intake Total 480 / 480 Balance 480 / 480 Weight 214 lb 212 lb 9.6 oz - Constitutional no acute distress - *Routine Respiratory Exam Present: CTA bilaterally - *Routine Cardiovascular Exam Present: RRR - *Routine Extremities Exam Absent: cyanosis, clubbing, edema Assessment and Plan (1) ST elevation myocardial infarction (STEMI) Status: Acute Qualifiers: Involved coronary artery: unspecified coronary artery Qualified Code(s): I21.3 - ST elevation (STEMI) myocardial infarction of unspecified site Category: Medical Code(s): I21.3 - ST elevation (STEMI) myocardial infarction of unspecified site (2) Ex-smoker for more than 1 year Status: Acute Category: Social Hx Code(s): Z87.891 - Personal history of nicotine dependence (3) Family history of coronary artery disease in mother Status: Acute Category: Medical Code(s): Z82.49 - Family history of ischemic heart disease and other diseases of the circulatory system (4) Hypothyroidism (acquired) Status: Acute Category: Medical Code(s): E03.9 - Hypothyroidism, unspecified (5) Obesity (BMI 30-39.9) Status: Acute Category: Medical Code(s): E66.9 - Obesity, unspecified - Assessment and plan all Dx Assessment and Plan for all problems:: 1. Continue dual antiplatelet therapy, beta-conner, ARB, statin for recent FL 2. Patient's levothyroxine has been reduced to 88 mcg 3. Plan is to continue for additional 24 hours of monitoring with anticipated discharge tomorrow morning
[2021-10-15 08:12] LABS: Basophils # 0.1 K/mm3 (0-0.2); Basophils % 0.7 % (0.1-2.0); Eosinophils # 0.2 K/mm3 (0.0-0.4); Eosinophils % 2.4 % (0.1-12.0); Hematocrit 38.9 % (37.0-47.0); Hemoglobin 12.7 g/dL (12.2-16.2); Lymphocytes # 2.7 K/mm3 (0.7-4.5); Lymphocytes % 28.5 % (10-50); Mean Corpuscular HGB Conc 32.5 g/dL (31.8-35.4); Mean Corpuscular Hemoglobin 29.1 pg (27.0-31.2); Mean Corpuscular Volume 89.5 fl (81-99); Mean Platelet Volume 7.8 fl (7.4-10.4); Monocytes # 0.4 K/mm3 (0.1-1.0); Monocytes % 3.8 % (1.7-9.3); Neutrophils # 6.2 K/mm3 (1.8-7.8); Neutrophils % 64.6 % (37.0-80.0); Platelet Count 318 K/mm3 (142-424); Red Blood Count 4.35 M/mm3 (4.20-5.40); Red Cell Distribution Width 13.2 % (11.5-17.5); White Blood Count 9.6 K/mm3 (4.8-10.8)
[2021-10-15 08:17] LABS: Chloride 106 mmol/L (98-107); Potassium 3.7 mmoL/L (3.5-5.1); Sodium 140 mmol/L (136-145)
[2021-10-15 08:20] LABS: Anion Gap 14.7 mEq/L (5-15); Blood Urea Nitrogen 8 mg/dl (7-17); Calcium 9.2 mg/dl (8.4-10.2); Carbon Dioxide 23 mmol/L (22.0-30.0); Creatinine Clearance Estimated 145 mL/min (50-200); Estimated Glomerular Filt Rate 88 ml/min (>60); GFR (African American) 107 ML/MIN (>60); Glucose 138 mg/dl (74-100)
--- NOTE | 2021-10-15 13:25 | P.CONPHA_ITS ---
[facility] Pharmacy VTE Monitoring - Patient Demographics Admission date: 10/14/21 Report Date: 10/15/21 Time: 13:25 Allergies/Adverse Reactions: Patient Allergies cefaclor [From CECLOR] Allergy (Intermediate, Verified 09/02/20 14:57) I-HIVES ciprofloxacin [From CIPRO] Allergy (Intermediate, Verified 09/02/20 14:57) I-HIVES duloxetine [From CYMBALTA] Allergy (Mild, Verified 09/02/20 14:57) NA-NAUSEA/VOMITING Height: 1.63 m Weight: 96.434 kg Patient Problems: Current Active Problems (This Medical Record has been edited. Action required.) ST elevation myocardial infarction (STEMI) (Acute) Hypothyroidism (acquired) (Acute) Obesity (BMI 30-39.9) (Acute) Ex-smoker for more than 1 year (Acute) Family history of coronary artery disease in mother (Acute) - VTE Risk Labs: VTE Related Lab Results Hgb 12.7 g/dL (12.2-16.2) 10/15/21 07:40 Hct 38.9 % (37.0-47.0) 10/15/21 07:40 Plt Count 318 K/mm3 (142-424) 10/15/21 07:40 BUN 8 mg/dl (7-17) D 10/15/21 07:40 Creatinine 0.70 mg/dl (0.52-1.04) 10/15/21 07:40 Estimated Creat Clear 145 mL/min (50-200) 10/15/21 07:40 VTE Score: 4 VTE Risk Level: Low Risk - Prophylaxis VTE Prophylaxis Ordered?: Yes Types of VTE Prophylaxis: TEDS Knee High Location of Applied Device: Bilateral Lower Extremeties
[2021-10-16] VITALS: BP 124/66; PULSE 60; PULSE 80; RESP 16; TEMP 36.6; O2SAT 99
[2021-10-16 04:00] VITALS: BP 98/64; PULSE 60; PULSE 68; RESP 16; TEMP 36.6; O2SAT 98
[2021-10-16 05:06] VITALS: BMI 36.6
[2021-10-16 08:00] VITALS: BP 106/68; PULSE 60; PULSE 70; RESP 16; TEMP 36.8; O2SAT 98
--- NOTE | 2021-10-16 09:12 | HMH.DCSUM ---
General - General Admission date:: 10/14/21 Discharge date: 10/16/21 HPI HPI: 51-year-old white female with prior tobacco use and hypothyroidism presented to the emergency department this a.m. after getting up to go to the bathroom and noticing indigestion type symptoms which persisted and included arm discomfort. EKG in the ER revealed evidence of inferior ST elevation [place] and was taken urgently to the cardiac [facility] where thrombectomy and subsequent stent placement was performed. AFter intervention all of her symptoms have resolved. Hospital Course Hospital Course: Ms. Rosado is a 51-year-old female admitted for chest pain NSTEMI. Cardiology was consulted on arrival to the ER due to STEMI alert. Urgently taken to the [facility] for prevention. Following findings per [facility] report: IMPRESSION Acute occlusion of a large dominant right coronary artery with successful mechanical aspiration followed by drug-eluting stenting restoring SCOT-3 flow Hypokinesis of the inferior wall Mildly elevated LVEDP PLAN 1. Brilinta 90 twice daily plus aspirin 81 mg daily 2. Supportive care for the next 48 hours 3. Official echocardiogram to better quantitate ejection fraction 4. GENA inhibitor's and beta-blockers once hemodynamically stable 5. LDL of 55 to be achieved with high intensity statin 6. Cardiac rehabilitation Admitted and monitored for 48 hours. Patient had no further events. Chest pain drastically improved, still little sore but not the same as when she arrived at the ER. Tolerating goal-directed therapy with dual antiplatelet therapy, GENA inhibitor, beta-conner. Also started on a statin. We will continue this course at discharge. Close follow-up with her primary care in the next week and cardiology in the next 2 weeks. Unfortunately Brilinta was cost prohibitive due to not having prescription coverage. Transitioned over to Plavix. Medically stable for discharge home. Examined on day of discharge. Objective Vital signs: Temp Pulse Resp BP Pulse Ox 98.2 F 70 16 106/68 L 98 10/16/21 08:00 10/16/21 08:00 10/16/21 08:00 10/16/21 08:00 10/16/21 08:00 no acute distress, obese - *Routine HEENT Exam Head: Present: normocephalic Eye: Present: EOMI, PERRL ENT: Present: mucous membranes moist - *Routine Neck Exam Present: supple - Routine Chest/Breast/Axilla Exam Chest wall: Absent: tenderness - *Routine Respiratory Exam Present: CTA bilaterally - *Routine Cardiovascular Exam Present: RRR - *Routine Abdominal Exam Present: soft, normoactive bowel sounds. Absent: tenderness - *Routine Extremities Exam Absent: cyanosis, clubbing, edema - *Routine Skin Exam Present: warm. Absent: rash - Detailed Eye Exam Eyelids: Bilateral normal inspection DS: Diagnosis - Discharge Diagnosis (1) ST elevation myocardial infarction (STEMI) Status: Acute (2) Ex-smoker for more than 1 year Status: Acute (3) Family history of coronary artery disease in mother Status: Acute (4) Hypothyroidism (acquired) Status: Acute (5) Obesity (BMI 30-39.9) Status: Acute Discharge Plan - Patient Discharge Instructions ACTIVITY: Continue current activity, No heavy lifting DIET: low fat, low cholesterol Patient Instructions: Recommendations to Help Prevent High Blood Pressure, Heart Attack, Cardiac Catheterization, Surgical Site Infection - Follow up Plan Follow up with: Arley Tolentino MD [Staff Physician] - 10/24/21 1:00 pm Loco Ames MD [Primary Care Provider] - (please call for appointment) Disposition: Home, Self-Care Condition at discharge:: Stable Home Medications: Home Medications Medication Instructions Recorded Confirmed Type Levothyroxine Sodium 100 mcg PO DAILY 10/14/21 10/14/21 History [Levothyroxine 100mcg (0.1MG) Tab] Aspirin [Aspirin 81mg EC Tab] 81 mg PO DAILY 30 Days #30 tab 10/16/21 Rx Atorvastatin Calcium [Lipitor 40mg 40 mg
--- NOTE | 2021-10-16 11:21 | HMH.PHACLD ---
Regina Rosado has received discharge medication counseling on the following medications: ASPIRIN IRBESARTAN METOPROLOL PLAVIX ATORVASTATIN SPOKE TO PATIENT AND PATIENT'S . NEW MEDICATIONS WERE SENT TO [facility]. PATIENT VERBALIZED UNDERSTANDING AND HAD NO QUESTIONS AT THIS TIME. -CELIA MOSQUERA, PHARMD
--- NOTE | 2021-10-16 11:53 | PC.NURSE ---
pt has been discahrged from [facility]. Voiced understanding of all discahrge education and follow up appts. Post op wound care and infection prevention teaching completed. Prescriptions to be picked up at [facility].
== END 2021-10-16 11:45 | disposition home or self-care (01) | DRG 247 ==
LOC: ER 06:05 → 2ND 06:11 → CATHLAB 06:22 → 2ND 12:07
PROVIDERS: Internal Medicine; Admitting Provider Emergency Medicine; Emergency Provider Emergency Medicine; PCP Family Medicine; Visit Provider Family Medicine
PROC: 027034Z Dilation of Coronary Artery, One Artery with Drug-eluting Intraluminal Device, Percutaneous Approach (ICD-10-PCS; principal; 2021-10-14 06:10)
DX: I21.19 ST elevation (STEMI) myocardial infarction involving other coronary artery of inferior wall (principal); I25.10 Atherosclerotic heart disease of native coronary artery without angina pectoris; Z82.49 Family history of ischemic heart disease and other diseases of the circulatory system; Z87.891 Personal history of nicotine dependence; E03.9 Hypothyroidism, unspecified; E66.9 Obesity, unspecified; Z68.36 Body mass index [BMI] 36.0-36.9, adult; Z85.9 Personal history of malignant neoplasm, unspecified
CPT/HCPCS: 36415; 71045; 80048; 80061; 80076; 84436; 84443; 84484; 85025; 85347; 92941; 93005; 93306; 93458; 96374; 99152; 99284; C1725; C1769; C1876; C9606; C9803; J1644; Q9967; U0003; U0005

== ENCOUNTER → 2021-10-20 10:13 | Outpatient (CLI) | payer MEDICARE, SELFPAY ==
[2021-10-20 10:54] LABS: Hematocrit 39.2 % (37.0-47.0)
[2021-10-20 11:09] LABS: Blood Urea Nitrogen 17 mg/dl (7-17); Estimated Glomerular Filt Rate 76 ml/min (>60); GFR (African American) 92 ML/MIN (>60)
== END ==
PROVIDERS: Visit Provider Internal Medicine
DX: I25.10 Atherosclerotic heart disease of native coronary artery without angina pectoris (principal); Z95.5 Presence of coronary angioplasty implant and graft
CPT/HCPCS: 36415; 82565; 84520; 85014; 85018

== ENCOUNTER 2021-11-01 09:51 | Outpatient (RCR) | payer MEDICARE, SELFPAY | END 2022-01-31 14:33 | disposition home or self-care (01) | LOC: PT 09:51 | PROVIDERS: Visit Provider Internal Medicine | DX: I25.10 Atherosclerotic heart disease of native coronary artery without angina pectoris (principal); Z95.5 Presence of coronary angioplasty implant and graft ==

== ENCOUNTER → 2021-11-15 13:33 | Outpatient (CLI) | payer MEDICARE, SELFPAY ==
--- NOTE | 2021-11-15 13:42 | CA_ITS ---
FINAL REPORT CLINICAL HISTORY: .Post Right radial Artery cardiac cath 10/14/2021, c/o Right deltoid pain COMPARISON: Limited sonographic imaging of the right arm was obtained. FINDINGS: There is no evidence of pseudoaneurysm. No AV fistula is seen. IMPRESSION: Unremarkable exam. Reviewed, Interpreted and Dictated by Mehul Calvillo III, MD Transcribed by Laurie Blake Authenticated by Mehul Calvillo III, MD on 11/15/2021 03:14:01 PM [facility]
== END ==
PROVIDERS: PCP Nurse Practitioner Family; Visit Provider Nurse Practitioner Family
DX: I77.0 Arteriovenous fistula, acquired (principal)
CPT/HCPCS: 93931

== ENCOUNTER → 2022-03-06 11:07 | Outpatient (CLI) | payer MEDICARE, SELFPAY ==
--- NOTE | 2022-03-06 11:24 | XR_ITS ---
FINAL REPORT CLINICAL HISTORY: ? BONE SPUR Heel pain x 1 month FINDINGS: LEFT ANKLE: Three views of the left ankle were obtained. There is no acute fracture or dislocation. There are mild degenerative changes. There are small calcaneal spurs. There is no soft tissue abnormality. IMPRESSION: Small calcaneal spurs with mild degenerative change. Reviewed, Interpreted and Dictated by Mehul Calvillo III, MD Transcribed by Eligio Sullivan Authenticated by eMhul Calvillo III, MD on 03/06/2022 01:00:59 PM [facility]
== END ==
LOC: RAD 11:12
PROVIDERS: PCP Nurse Practitioner Family; Visit Provider Nurse Practitioner Family
DX: M25.572 Pain in left ankle and joints of left foot (principal); M89.8X7 Other specified disorders of bone, ankle and foot
CPT/HCPCS: 73610

== ENCOUNTER → 2022-07-31 08:50 | Outpatient (CLI) | payer MEDICARE, SELFPAY ==
[2022-07-31 10:15] LABS: Chloride 103 mmol/L (98-107); Potassium 4.3 mmoL/L (3.5-5.1); Sodium 142 mmol/L (136-145)
[2022-07-31 10:17] LABS: Bilirubin,Unconjugated 0.3 mg/dL (0.0-1.1); Blood Urea Nitrogen 13 mg/dl (7-17); Estimated Glomerular Filt Rate 88 ml/min (>60); GFR (African American) 107 ML/MIN (>60)
[2022-07-31 10:18] LABS: Alanine Aminotransferase 15 U/L (12-78); Albumin Level 4.2 g/dl (3.5-5.0); Alkaline Phosphatase 133 U/L (38-126); Anion Gap 15.3 mEq/L (5-15); Aspartate Amino Transferase 24 U/L (14-36); Bilirubin,Indirect 0.2 mg/dL (0.0-0.9); Bilirubin,Total 0.2 mg/dl (0.2-1.3); Calcium 9.3 mg/dl (8.4-10.2); Carbon Dioxide 28 mmol/L (22.0-30.0); Chol/HDL Ratio 3.2 (1-3.5); Cholesterol 148 mg/dl (140-200); Glucose 90 mg/dl (74-100); HDL Cholesterol 46 mg/dl (40-60); Total Protein,Serum 6.9 g/dl (6.3-8.2); Triglycerides 244 mg/dl (30-150); VLDL Cholesterol 49 mg/dL (0-40)
[2022-07-31 10:49] LABS: Thyroid Stimulating Hormone 1.47 uIU/mL (0.465-4.68)
[2022-07-31 12:38] LABS: Basophils # 0.1 K/mm3 (0-0.2); Basophils % 1.3 % (0.1-2.0); Eosinophils # 0.2 K/mm3 (0.0-0.4); Eosinophils % 2.6 % (0.1-12.0); Hematocrit 39.5 % (37.0-47.0); Hemoglobin 13.1 g/dL (12.2-16.2); Lymphocytes # 2.3 K/mm3 (0.7-4.5); Lymphocytes % 30.1 % (10-50); Mean Corpuscular HGB Conc 33.1 g/dL (31.8-35.4); Mean Corpuscular Hemoglobin 29.9 pg (27.0-31.2); Mean Corpuscular Volume 90.4 fl (81-99); Monocytes # 0.4 K/mm3 (0.1-1.0); Monocytes % 5.1 % (1.7-9.3); Neutrophils # 4.6 K/mm3 (1.8-7.8); Neutrophils % 60.9 % (37.0-80.0); Platelet Count 295 K/mm3 (142-424); Red Blood Count 4.37 M/mm3 (4.20-5.40); Red Cell Distribution Width 13.6 % (11.5-17.5); White Blood Count 7.5 K/mm3 (4.8-10.8)
[2022-08-07 23:18] LABS: 1,25 Dihydroxy Vitamin D 25 pg/mL (.); 1,25-Dihydroxy, Vitamin D-2 <10 pg/mL (.); 1,25-Dihydroxy, Vitamin D-3 20 pg/mL (.)
== END ==
LOC: LAB 08:51
PROVIDERS: PCP Nurse Practitioner Family; Visit Provider Physician Assistant
DX: I25.10 Atherosclerotic heart disease of native coronary artery without angina pectoris (principal); E78.2 Mixed hyperlipidemia; I10 Essential (primary) hypertension; E03.9 Hypothyroidism, unspecified; E66.9 Obesity, unspecified; Z87.891 Personal history of nicotine dependence; R53.83 Other fatigue; Z68.36 Body mass index [BMI] 36.0-36.9, adult
CPT/HCPCS: 36415; 80048; 80061; 80076; 82652; 84439; 84443; 85025

== ENCOUNTER 2022-08-27 17:40 | Emergency (ER) | payer MEDICARE, SELFPAY ==
[2022-08-27 17:41] VITALS: BP 160/80; PULSE 69; RESP 16; TEMP 36.9; O2SAT 100; BMI 37.7
--- NOTE | 2022-08-27 17:45 | ECG_ITS ---
APPROVED REPORT Exam: Resting ECG HR:65 bpm ECG Measurements Heart Rate 65 AXES CO 158 P -9 QRSd 97 QRS 26 QT 432 T -16 QTc 444 Conclusion SINUS RHYTHM NONSPECIFIC T-WAVE ABNORMALITY BORDERLINE ECG UNCONFIRMED REPORT Electronically signed by : Loco Finn MD 08/28/2022 16:38:51
--- NOTE | 2022-08-27 17:46 | PC.NURSE ---
in with pt upon her arrival
--- NOTE | 2022-08-27 17:48 | HMH.EDGENADL ---
Discharge Plan Disposition Patient Disposition: Home, Self-Care Condition: Good Prescriptions Prescriptions: New pantoprazole [Protonix] 40 mg tablet,delayed release (DR/EC) 40 mg PO HS 28 Days Qty: 28 0RF No Action cholecalciferol (vitamin D3) [Vitamin D3] 125 mcg (5,000 unit) tablet 125 mcg PO DAILY metoprolol succinate 25 mg tablet extended release 24 hr 25 mg PO DAILY Qty: 90 3RF clopidogrel 75 mg tablet 75 mg PO DAILY Qty: 90 3RF rosuvastatin [Crestor] 10 mg tablet 10 mg PO DAILY Qty: 90 3RF levothyroxine 100 MCG tablet 100 mcg PO DAILY aspirin 81 MG tablet,delayed release (DR/EC) 81 mg PO DAILY 30 Days Qty: 30 0RF Referrals Follow up/Referrals: Danica Hawkins APRN [Primary Care Provider] - See instructions Activity Restrictions/Add. Instructions Additional Instructions/Restrictions: Please follow-up with your primary care physician in the next 2 to 3 days for further management. 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 Please also take your proton pump inhibitor as prescribed. Please also take Mylanta and Maalox as needed. For symptoms that do not resolve please return to the emergency department. Return to Emergency Department if symptoms reoccur. Clinical Impressions Clinical Impression: Back pain, Chest pain Instructions Patient Instructions: DI for Gastritis, DI for Atypical Chest Pain Print Language Print Language: Bulgarian Discharge ED Provider: Dafne Montejo Adult HPI <Dafne Montejo MD - Last Filed: 09/07/22 23:23> General Chief complaint: PAIN Stated complaint: Chest Pain Time Seen by Provider: 08/27/22 18:45 Mode of Arrival: Ambulatory Source of Information: Patient Limitations: No Limitations Description of Symptoms (Recalled from ER Triage Doc. by RN): PT advises she is having pain in her back but she also has pain in the center of her chest. Advises it started around 1300 and came on suddenly and is a constant sharp pain. Pt denies any SOA History of Present Illness HPI narrative: Mrs. Pelayo is a 51-year-old female PMH for HTN, HLD, CAD, Inferior MO 2020 who subsequently underwent [facility] where thrombectomy and subsequent stent placement was performed currently on clopidogrel and aspirin daily who presents to the emergency department for deep epigastric chest pain which radiates into her back, which started around 1300. She describes the pain as constant and sharp in nature. Non-exertional. She denies any dyspnea. No recent trauma to the back. No cough, fevers or other infectious symptoms. Patient took ASA this morning. MD complaint: Chest pain and back pain Onset (ago): hour(s) Location: chest and back Radiation: non-radiation Severity: moderate Quality: sharp Consistency: constant Relieving factors: none Exacerbating factors: none Associated symptoms: chest pain Treatments prior to arrival: none Related Data Home Medications Medication Instructions Recorded Confirmed levothyroxine 100 mcg tablet 100 mcg PO DAILY THYROID 10/14/21 07/24/22 cholecalciferol (vitamin D3) 125 125 mcg PO DAILY 01/23/22 07/24/22 mcg (5,000 unit) tablet (Vitamin D3) Previous Rx's Medication Instructions Recorded aspirin 81 mg tablet,delayed 81 mg PO DAILY 30 days #30 tabs 10/16/21 release clopidogrel 75 mg tablet 75 mg PO DAILY #90 tabs 01/23/22 metoprolol succinate 25 mg 25 mg PO DAILY #90 tabs 01/23/22 tablet,extended release 24 hr rosuvastatin 10 mg tablet (Crestor) 10 mg PO DAILY #90 tabs 01/23/22 pantoprazole 40 mg tablet,delayed 40 mg PO HS 4 weeks #28 tabs 08/27/22 release (Protonix) Allergies Allergy/AdvReac Type Severity Reaction Status Date / Time cefaclor [From CECLOR] Allergy Intermediate I-HIVES Verified 07/24/22 10:11 ciprofloxacin [From CIPRO] Allergy Intermediate I-HIVES Verified 07/24/22 10:11 duloxetine [From CYMBALTA] Allergy Mild NA-NAUSEA/V Verified 07/24/22 10:11 OMITING PFS
--- NOTE | 2022-08-27 17:50 | XR_ITS ---
PROCEDURE INFORMATION: Exam: XR Chest Exam date and time: 08/27/2022 6:09 PM Age: 51 years old Clinical indication: Chest wall pain; Additional info: Chest pain TECHNIQUE: Imaging protocol: Radiologic exam of the chest. Views: 1 view. COMPARISON: CR XR CHEST PORTABLE 10/14/2021 6:01 AM FINDINGS: Lungs: Mild bibasilar atelectasis. Pleural spaces: Unremarkable. No pleural effusion. No pneumothorax. Heart/Mediastinum: Unremarkable. No cardiomegaly. Vasculature: Vascular calcifications. Bones/joints: Unremarkable. IMPRESSION: No acute findings.
[2022-08-27 18:01] VITALS: BP 107/53; PULSE 61; RESP 12; O2SAT 97
[2022-08-27 18:03] LABS: Chloride 101 mmol/L (98-107); Potassium 3.5 mmoL/L (3.5-5.1); Sodium 141 mmol/L (136-145)
[2022-08-27 18:06] LABS: Alanine Aminotransferase 21 U/L (12-78); Albumin Level 4.5 g/dl (3.5-5.0); Albumin/Globulin Ratio 1.5 (1.1-1.8); Alkaline Phosphatase 126 U/L (38-126); Anion Gap 15.5 mEq/L (5-15); Aspartate Amino Transferase 35 U/L (14-36); Bilirubin,Total 0.5 mg/dl (0.2-1.3); Blood Urea Nitrogen 19 mg/dl (7-17); Carbon Dioxide 28 mmol/L (22.0-30.0); Creatinine Clearance Estimated 127 mL/min (50-200); Estimated Glomerular Filt Rate 76 ml/min (>60); GFR (African American) 92 ML/MIN (>60); Glucose 104 mg/dl (74-100); Total Protein,Serum 7.5 g/dl (6.3-8.2)
[2022-08-27 18:14] LABS: Basophils # 0.1 K/mm3 (0-0.2); Basophils % 1.1 % (0.1-2.0); Eosinophils # 0.2 K/mm3 (0.0-0.4); Eosinophils % 2.4 % (0.1-12.0); Hematocrit 41.7 % (37.0-47.0); Hemoglobin 13.2 g/dL (12.2-16.2); Lymphocytes # 2.9 K/mm3 (0.7-4.5); Lymphocytes % 31.1 % (10-50); Mean Corpuscular HGB Conc 31.7 g/dL (31.8-35.4); Mean Corpuscular Hemoglobin 29.1 pg (27.0-31.2); Mean Corpuscular Volume 91.7 fl (81-99); Mean Platelet Volume 8.5 fl (7.4-10.4); Monocytes # 0.6 K/mm3 (0.1-1.0); Monocytes % 6.5 % (1.7-9.3); Neutrophils # 5.4 K/mm3 (1.8-7.8); Neutrophils % 58.9 % (37.0-80.0); Platelet Count 277 K/mm3 (142-424); Red Blood Count 4.55 M/mm3 (4.20-5.40); White Blood Count 9.2 K/mm3 (4.8-10.8)
[2022-08-27 18:16] LABS: NT Pro Brain Natriuretic Pep. 48.2 pg/mL (0-125)
[2022-08-27 18:21] LABS: Troponin I < 0.01 ng/ml (0.00-0.034)
[2022-08-27 18:36] VITALS: BP 143/72; PULSE 54; RESP 14; O2SAT 97
--- NOTE | 2022-08-27 18:37 | PC.NURSE ---
Rounded on pt at this time. Updated her on POC and lab results. Pt advised she was still a little uncomfortable. Notified MD, Pt had no other needs at this time.
[2022-08-27 19:00] VITALS: BP 124/69; PULSE 56; RESP 14; O2SAT 96
[2022-08-27 19:31] VITALS: BP 122/72; PULSE 55; RESP 12; O2SAT 99
--- NOTE | 2022-08-27 19:58 | PC.NURSE ---
Dr. Montejo at
[2022-08-27 20:15] VITALS: BP 124/74; PULSE 57; RESP 16; TEMP 36.9; O2SAT 99
--- NOTE | 2022-09-08 02:37 | HMH.EDGENADL ---
Discharge Plan Disposition Patient Disposition: Home, Self-Care Condition: Good Prescriptions Prescriptions: New pantoprazole [Protonix] 40 mg tablet,delayed release (DR/EC) 40 mg PO HS 28 Days Qty: 28 0RF No Action cholecalciferol (vitamin D3) [Vitamin D3] 125 mcg (5,000 unit) tablet 125 mcg PO DAILY metoprolol succinate 25 mg tablet extended release 24 hr 25 mg PO DAILY Qty: 90 3RF clopidogrel 75 mg tablet 75 mg PO DAILY Qty: 90 3RF rosuvastatin [Crestor] 10 mg tablet 10 mg PO DAILY Qty: 90 3RF levothyroxine 100 MCG tablet 100 mcg PO DAILY aspirin 81 MG tablet,delayed release (DR/EC) 81 mg PO DAILY 30 Days Qty: 30 0RF Referrals Follow up/Referrals: Danica Hawkins APRN [Primary Care Provider] - See instructions Activity Restrictions/Add. Instructions Additional Instructions/Restrictions: Please follow-up with your primary care physician in the next 2 to 3 days for further management. 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 Please also take your proton pump inhibitor as prescribed. Please also take Mylanta and Maalox as needed. For symptoms that do not resolve please return to the emergency department. Return to Emergency Department if symptoms reoccur. Clinical Impressions Clinical Impression: Back pain, Chest pain Instructions Patient Instructions: DI for Gastritis, DI for Atypical Chest Pain Print Language Print Language: Armenian Discharge ED Provider: Dafne Montejo Adult HPI General Chief complaint: PAIN Stated complaint: Chest Pain Time Seen by Provider: 08/27/22 18:45 Mode of Arrival: Ambulatory Source of Information: Patient Limitations: No Limitations Description of Symptoms (Recalled from ER Triage Doc. by RN): PT advises she is having pain in her back but she also has pain in the center of her chest. Advises it started around 1300 and came on suddenly and is a constant sharp pain. Pt denies any SOA History of Present Illness HPI narrative: Mrs. Zhu is a 51-year-old female presenting to the emergency department for epigastric abdominal pain which radiates into the center of her chest. Patient reports symptom onset 1300 today acute in nature. She describes a sharp sensation nonexertional. Denies any dyspnea. No fevers, cough or other infectious-like symptoms. MD complaint: Chest pain Onset (ago): hour(s) Location: chest and back Severity: moderate Quality: sharp Relieving factors: none Exacerbating factors: none Associated symptoms: chest pain Treatments prior to arrival: none Related Data Home Medications Medication Instructions Recorded Confirmed levothyroxine 100 mcg tablet 100 mcg PO DAILY THYROID 10/14/21 07/24/22 cholecalciferol (vitamin D3) 125 125 mcg PO DAILY 01/23/22 07/24/22 mcg (5,000 unit) tablet (Vitamin D3) Previous Rx's Medication Instructions Recorded aspirin 81 mg tablet,delayed 81 mg PO DAILY 30 days #30 tabs 10/16/21 release clopidogrel 75 mg tablet 75 mg PO DAILY #90 tabs 01/23/22 metoprolol succinate 25 mg 25 mg PO DAILY #90 tabs 01/23/22 tablet,extended release 24 hr rosuvastatin 10 mg tablet (Crestor) 10 mg PO DAILY #90 tabs 01/23/22 pantoprazole 40 mg tablet,delayed 40 mg PO HS 4 weeks #28 tabs 08/27/22 release (Protonix) Allergies Allergy/AdvReac Type Severity Reaction Status Date / Time cefaclor [From CECLOR] Allergy Intermediate I-HIVES Verified 07/24/22 10:11 ciprofloxacin [From CIPRO] Allergy Intermediate I-HIVES Verified 07/24/22 10:11 duloxetine [From CYMBALTA] Allergy Mild NA-NAUSEA/V Verified 07/24/22 10:11 OMITING PFSH PFSH Medical History HTN (hypertension) Social History Smoking Status: Never smoker alcohol intake: never substance use type: denies use current occupational status: unemployed Travel in the last 8 weeks: None household members
== END 2022-08-27 20:17 | disposition home or self-care (01) ==
PROVIDERS: Emergency Provider Student in an Organized Health Care Education/Training Program; PCP Nurse Practitioner Family
DX: M54.9 Dorsalgia, unspecified; Z88.8 Allergy status to other drugs, medicaments and biological substances; R07.9 Chest pain, unspecified; I10 Essential (primary) hypertension; E78.5 Hyperlipidemia, unspecified; I25.10 Atherosclerotic heart disease of native coronary artery without angina pectoris
CPT/HCPCS: 71045; 80053; 83880; 84484; 85025; 93005; 99284

== ENCOUNTER → 2022-10-10 14:54 | Outpatient (CLI) | payer MEDICARE, SELFPAY ==
--- NOTE | 2022-10-10 15:01 | XR_ITS ---
FINAL REPORT TECHNIQUE: Chest PA & Lateral CLINICAL HISTORY: ABNORMAL LEVELS OF SERUM ENZYMES, COMPARISON: August 2022 FINDINGS: 2 views of the chest were performed. The heart size is normal. The mediastinum is within normal limits. There is no acute cardiopulmonary process. There are no pleural effusions. There is no pneumothorax. The bony thorax appears intact. IMPRESSION: No acute cardiopulmonary process. Reviewed, Interpreted and Dictated by Mehul Calvillo III, MD Transcribed by Eligio Sullivan Authenticated and [facility]
--- NOTE | 2022-10-10 15:17 | MM_ITS ---
PROCEDURE INFORMATION: Exam: MG Bilateral Screening 3D Mammography Exam date and time: 10/10/2022 3:07 PM Age: 51 years old Clinical indication: Screening examination TECHNIQUE: Imaging protocol: Bilateral Screening tomosynthesis and 2D mammography including computer-aided detection (CAD) when performed. COMPARISON: 1. MG MM DIG SCREENING MAMM BI W/CAD 09/16/2021 2:57 PM 2. MG MM DIG SCREENING MAMM BI W/CAD 09/10/2020 4:22 PM FINDINGS: MAMMOGRAPHY: Breast composition: The breasts are almost entirely fatty. Mass: None. Architectural distortion: None. Calcifications: No suspicious calcifications. Asymmetric density: None. Skin thickening: None. Axillary adenopathy: None. IMPRESSION: No mammographic evidence of malignancy. Annual screening is recommended unless otherwise clinically indicated. ASSESSMENT: BI-RADS Category 1: Negative
== END ==
PROVIDERS: PCP Nurse Practitioner Family; Visit Provider Nurse Practitioner Family
DX: Z12.31 Encounter for screening mammogram for malignant neoplasm of breast (principal); R74.8 Abnormal levels of other serum enzymes
CPT/HCPCS: 71046; 77063; 77067

== ENCOUNTER → 2023-01-05 09:15 | Outpatient (CLI) | payer MEDICARE, SELFPAY ==
--- NOTE | 2023-01-05 09:22 | XR_ITS ---
FINAL REPORT CLINICAL HISTORY: RIGHT ELBOW JOINT PAIN FINDINGS: RIGHT ELBOW AP, oblique, and lateral views of the right elbow were obtained. There is no prior exam for comparison. There is no acute fracture or dislocation. There is mild degenerative disease. There is deformity of the distal humerus which is likely chronic. There is no joint effusion or other soft tissue abnormality. IMPRESSION: 1. Mild degenerative disease. 2. No acute osseous abnormality. Reviewed, Interpreted and Dictated by Flaquita High MD Transcribed by Pat Baum Authenticated and [facility]
== END ==
LOC: RAD 09:17
PROVIDERS: PCP Nurse Practitioner Family; Visit Provider Nurse Practitioner Family
DX: M25.521 Pain in right elbow (principal)
CPT/HCPCS: 73080

== ENCOUNTER → 2023-01-16 15:13 | Outpatient (CLI) | payer MEDICARE, SELFPAY ==
--- NOTE | 2023-01-16 15:14 | CA_ITS ---
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 year agopost Covid 2D Dimensions Aortic Root 2.94 cm LA Volume 31.10 mL Left Atrium 3.33 cm LA Volume Index 14.90 mL/m2 (M/F) 16-34 LVOT 1.87 cm (M/F) 1.5-2.5 M-Mode Dimensions RVDd 2.93 cm (0.9-2.6) LA Diam 4.00 cm (1.9-4.0) LVDd 5.17 cm (3.5-5.7) Ao Diam 3.03 cm (2.0-3.7) LVDs 3.17 cm (3.5-5.7) IVSd 1.08 cm (0.6-1.1) PWd 1.04 cm (0.6-1.1) EF (Teich) 68.70% EPSs 0.52 cm FS 38.70% EDV (Teich) 127.80 mL TAPSE 1.87 (<1.7) ESV (Teich) 40.00 mL LV Diastology E Decel Time 237.00 (160-240 msec) E/A Ratio 1.15 MED E' 6.60 (< 7 cm/sec) MED A' 8.20 cm/s E'/MED E' Ratio 12.62 (>14) LAT E' 9.30 (<10 cm/sec) LAT A' 8.20 cm/s E/LAT E' Ratio 8.96 (>14) Aortic Valve LVOT Max 124.00 (70-110 cm/s) LVOT VTI 26.31 cm AoV Peak Nitish. 153.00 (50-130 cm/s) AO Peak GR. 9.30 mmHg AO Mean GR. 4.80 (<5 mmHg) AO VTI 32.06 (18-25 cm) SHIRLEY (VTI) 2.25 (2.5-4.5 cm2) Mitral Valve MV A Velocity 73.00 (40-130 cm/s) E/A Ratio 1.15 MV Decel. Time 237.00 (160-240 ms) Pulmonary Valve PV Peak Velocity 85.00 (50-150 cm/s) Tricuspid Valve TR P. Velocity 226.00 cm/s RAP Estimate 10.00 mmHg RVSP 30.40 mmHg Left Ventricle Technically difficult study because of the patient factors and poor acoustic windows. Left atrium is mildly enlarged, left ventricle is normal size mild concentric left ventricular hypertrophy, estimated ejection fraction 55% with no obvious regional wall motion abnormality, diastolic parameters are inconclusive. Right Ventricle Right atrium and right ventricular normal size and contractility. Aortic Valve Aortic valve is minimally thickened and fibrosed there is no aortic stenosis or aortic insufficiency. Mitral Valve Mitral valve leaflets are minimally thickened, there is mild mitral regurgitation. Tricuspid Valve Tricuspid grossly normal, there is mild tricuspid regurgitation, tricuspid regurgitation jet velocity is inadequate for calculation of the right ventricular systolic pressure. Pulmonic Valve Pulmonic valve is poorly visualized. Great Vessels Aortic root is normal size. Inferior vena cava normal size with normal inspiratory collapse. Pericardium No significant pericardial effusion noted. Conclusion 1. Mildly enlarged left atrium, normal left ventricular size, mild concentric left ventricular hypertrophy, estimated ejection fraction 55% with no regional wall motion abnormality, diastolic parameters are inconclusive. 2. Mild mitral and tricuspid regurgitation. 3. No significant pericardial effusion noted. 4. Inferior vena cava normal size with normal inspiratory collapse. Electronically signed by : Romain Suresh MD 01/16/2023 19:21:15
[2023-01-16 17:13] LABS: Anion Gap 13.9 mEq/L (5-15); Blood Urea Nitrogen 23 mg/dl (7-17); Calcium 9.4 mg/dl (8.4-10.2); Carbon Dioxide 28 mmol/L (22.0-30.0); Chloride 94 mmol/L (98-107); Estimated Glomerular Filt Rate 58 ml/min (>60); GFR (African American) 70 ML/MIN (>60); Glucose 124 mg/dl (74-100); Potassium 3.9 mmoL/L (3.5-5.1); Sodium 132 mmol/L (136-145)
== END ==
LOC: RT 15:14
PROVIDERS: PCP Nurse Practitioner Family; Visit Provider Nurse Practitioner Family
DX: E66.9 Obesity, unspecified (principal); E78.2 Mixed hyperlipidemia; I10 Essential (primary) hypertension; I25.10 Atherosclerotic heart disease of native coronary artery without angina pectoris; I42.9 Cardiomyopathy, unspecified; Z82.49 Family history of ischemic heart disease and other diseases of the circulatory system; Z87.891 Personal history of nicotine dependence; Z68.37 Body mass index [BMI] 37.0-37.9, adult
CPT/HCPCS: 36415; 80048; 93306

== ENCOUNTER 2023-07-30 14:24 | Emergency (ER) | payer MEDICARE, SELFPAY ==
[2023-07-30 14:45] VITALS: BP 141/89; PULSE 61; RESP 18; TEMP 36.8; O2SAT 98; BMI 39.6
[2023-07-30 15:07] LABS: UTC Strep Screen (Rapid) Negative (Negative)
[2023-07-30 15:08] VITALS: BP 141/89; PULSE 61; RESP 18; TEMP 36.8; O2SAT 98
--- NOTE | 2023-07-30 15:14 | EXP.UTC ---
Discharge Plan Disposition Patient Disposition: Home, Self-Care Condition: Good Prescriptions Prescriptions: New azithromycin [Zithromax Z-George] 250 mg tablet See Rx Instructions .ROUTE .COMPLEX 5 Days Qty: 6 0RF Rx Instructions: For 250 mg dose pack: take 500 mg today (day 1), then 250 mg for 4 days (days 2-5) No Action cholecalciferol (vitamin D3) [Vitamin D3] 125 mcg (5,000 unit) tablet 125 mcg PO DAILY metoprolol succinate 25 mg tablet extended release 24 hr 25 mg PO DAILY Qty: 90 3RF rosuvastatin [Crestor] 40 mg tablet 40 mg PO DAILY Qty: 90 2RF spironolactone [Aldactone] 25 mg tablet 25 mg PO DAILY Qty: 90 3RF furosemide [Lasix] 40 mg tablet 40 mg PO DAILY Qty: 90 3RF levothyroxine 100 MCG tablet 100 mcg PO DAILY aspirin 81 MG tablet,delayed release (DR/EC) 81 mg PO DAILY 30 Days Qty: 30 0RF pantoprazole [Protonix] 40 mg tablet,delayed release (DR/EC) 40 mg PO HS 28 Days Qty: 28 0RF Referrals Follow up/Referrals: Julio Cesar Donaldson APRN [Primary Care Provider] - See instructions Activity Restrictions/Add. Instructions Additional Instructions/Restrictions: *Monitor Temp, Over the counter Motrin or Tylenol as directed/as needed Tylenol every 4 hours and Motrin every 6 hours (as long as your family doctor has told you that you can take it) for fever or pain. and straight to ER if unable to lower temp less than 101.0 after medication given *Warm salt water gargles may help to soothe the throat *Throat Lozenges? *Warm fluids like tea with honey may help to soothe the throat? *Sleep elevated *Humidifier/Vaporizer Your throat swab was sent for culture. Those results are typically sent to your primary care. Be sure to follow up in 2-3 days with your family doctor/primary care physician if no improvement so they can review those result and treat if necessary. If you don?t have a primary care doctor, I recommend you get one but in the mean time, you will have to return to a walk in clinic Follow up IMMEDIATELY for new or worsening symptoms or no Noticeable improvement over the next 48-72 hours. 911 for difficulty breathing or swallowing Clinical Impressions Clinical Impression: Pharyngitis Qualifiers: Pharyngitis/tonsillitis etiology: unspecified etiology Qualified Code(s): J02.9 - Acute pharyngitis, unspecified Instructions Patient Instructions: Sore Throat Discharge ED Provider: Isabel Otto [facility] General Stated complaint: sore throat Mode of Arrival: Ambulatory Source of Information: Patient Limitations: No Limitations Time Seen by Provider: 07/30/23 15:14 Description of Symptoms (Recalled from Triage Doc. by RN): PATIENT C/O SORE THROAT, BLISTERS IN MOUTH, AND HEADACHE X 2 DAYS HEENT Symptoms (Recalled from RN notes): Yes Resp Symptoms (Recalled from RN notes): No Skin Symptoms (Recalled from RN notes): No MS Symptoms (Recalled from RN notes): No Functional Status (Recalled from RN notes): WNL History of Present Illness Provider Complaint: Patient states that she feels like she is having strep throat States that she has been having sore throat, blisters on her throat and headache for a couple days States that she has also been having pain and pressure in her right ear so she came in to get checked worried she may have strep throat Related Data Home Medications Medication Instructions Recorded Confirmed levothyroxine 100 mcg tablet 100 mcg PO DAILY THYROID 10/14/21 01/23/23 cholecalciferol (vitamin D3) 125 125 mcg PO DAILY 01/23/22 01/23/23 mcg (5,000 unit) tablet (Vitamin D3) Previous Rx's Medication Instructions Recorded aspirin 81 mg tablet,delayed 81 mg PO DAILY 30 days #30 tabs 10/16/21 release pantoprazole 40 mg tablet,delayed 40 mg PO HS 4 weeks #28 tabs 08/27/22 release (Protonix) metoprolol succinate 25 mg 25 mg PO DAILY #90 tabs 02/20/23 tablet,extended release 24 hr rosuv
== END 2023-07-30 15:25 | disposition home or self-care (01) ==
PROVIDERS: Emergency Provider Nurse Practitioner; PCP Nurse Practitioner Family
DX: J02.9 Acute pharyngitis, unspecified (principal); I10 Essential (primary) hypertension
CPT/HCPCS: 87880; 99204; 99212; G0463

== ENCOUNTER 2023-09-20 12:18 | Emergency (ER) | payer MEDICARE, SELFPAY ==
[2023-09-20 12:25] VITALS: BP 138/84; PULSE 69; RESP 20; TEMP 36.8; O2SAT 97; BMI 38.7
--- NOTE | 2023-09-20 12:41 | EXP.UTC ---
Discharge Plan Disposition Patient Disposition: Home, Self-Care Condition: Good Prescriptions Prescriptions: New methocarbamol 500 mg tablet 500 mg PO TID PRN (Reason: muscle spasm) Qty: 12 0RF No Action furosemide 40 mg tablet 40 mg PO DAILY Patient Comments: TAKE 1 TABLET BY MOUTH ONCE DAILY spironolactone 25 mg tablet 25 mg PO DAILY Patient Comments: TAKE 1 TABLET BY MOUTH ONCE DAILY levothyroxine 100 mcg tablet 100 mcg PO DAILY Patient Comments: TAKE 1 TABLET BY MOUTH ONCE DAILY metoprolol succinate 25 mg tablet extended release 24 hr 25 mg PO DAILY Patient Comments: TAKE 1 TABLET BY MOUTH ONCE DAILY Referrals Follow up/Referrals: Kathy Ramos APRN [Referring] - See instructions Julio Cesar Donaldson APRN [Primary Care Provider] - See instructions Activity Restrictions/Add. Instructions Additional Instructions/Restrictions: Make sure to drink plenty of fluids Follow up with your Family Doctor if no improvement or any worsening of symptoms for further testing and evaluation Follow up with Urology if needed Return if needed Straight to ER if any life threatening symptoms Clinical Impressions Clinical Impression: Acute left-sided back pain Qualifiers: Back pain location: low back pain Sciatica presence: without sciatica Qualified Code(s): M54.50 - Low back pain, unspecified Instructions Patient Instructions: Low Back Pain, DI for Low Back Pain Discharge ED Provider: Isabel Otto [facility] General Stated complaint: Lt side/lower back pain, trouble urinating Mode of Arrival: Ambulatory Source of Information: Patient Limitations: No Limitations Time Seen by Provider: 09/20/23 12:41 Description of Symptoms (Recalled from Triage Doc. by RN): PATIENT C/O PAIN TO LEFT FLANK AREA THAT STARTED LAST NIGHT HEENT Symptoms (Recalled from RN notes): No Resp Symptoms (Recalled from RN notes): No Skin Symptoms (Recalled from RN notes): No MS Symptoms (Recalled from RN notes): No Functional Status (Recalled from RN notes): WNL History of Present Illness Provider Complaint: Patient states that she was at home last night and started having achy like pain in her left flank area and it was sharp at first and made her feel sick at her stomach States that it has eased off some now but still comes and goes and feels deep in there and hurts when she moves certain ways States that she is not having any burning or trouble urinating but she had kidney stones many years ago and she was able to pass all of them without difficulty Denies radiation of pain Denies loss of control of bowel or bladder Related Data Home Medications Medication Instructions Recorded Confirmed furosemide 40 mg tablet 40 mg PO DAILY 09/20/23 09/20/23 levothyroxine 100 mcg tablet 100 mcg PO DAILY 09/20/23 09/20/23 metoprolol succinate 25 mg 25 mg PO DAILY 09/20/23 09/20/23 tablet,extended release 24 hr spironolactone 25 mg tablet 25 mg PO DAILY 09/20/23 09/20/23 Previous Rx's Medication Instructions Recorded methocarbamol 500 mg tablet 500 mg PO TID PRN muscle spasm #12 09/20/23 tabs Allergies Allergy/AdvReac Type Severity Reaction Status Date / Time cefaclor [From CECLOR] Allergy Intermediate I-HIVES Verified 01/23/23 09:58 ciprofloxacin [From CIPRO] Allergy Intermediate I-HIVES Verified 01/23/23 09:58 duloxetine [From CYMBALTA] Allergy Mild NA-NAUSEA/V Verified 01/23/23 09:58 OMITING Worker's Comp Is this a Worker's Comp case?: No [facility] Disclaimer: The information contained in this section may have been updated after the patient was seen, as this information can be updated by other users. Medical History (Updated 09/20/23 @ 13:05 by Isabel Otto APRN) Cancer History of heart attack HTN (hypertension) Hyperlipidemia Kidney stone Migraine Thyroid disease Urinary tract infection Surgical History (Updated 09/20/23 @ 12:37 by Mariela Toure RN) Histor
[2023-09-20 12:46] LABS: Apearance,Urine Clear (Clear); Bilirubin,Urine Negative (Negative); Blood, Urine Negative (Negative); Color,Urine Yellow (Yellow); Glucose,Urine (UA) Negative (Negative); Ketones,Urine Negative (Negative); Protein,Urine Negative (Negative); Specific Gravity, Urine 1.015 (1.005-1.030); UTC Leukocyte Esterase,Urine Negative (Negative); UTC Nitrate,Urine Negative (Negative); Urobilinogen,Urine 0.2 EU/dl (0.2)
[2023-09-20 13:15] VITALS: BP 138/84; PULSE 69; RESP 20; TEMP 36.8; O2SAT 97
== END 2023-09-20 13:22 | disposition home or self-care (01) ==
PROVIDERS: Emergency Provider Nurse Practitioner; PCP Nurse Practitioner Family
DX: M54.50 Low back pain, unspecified (principal); R10.32 Left lower quadrant pain; I10 Essential (primary) hypertension; E78.5 Hyperlipidemia, unspecified; E03.9 Hypothyroidism, unspecified
CPT/HCPCS: 81003; 99212; 99214; G0463

== ENCOUNTER → 2023-10-24 10:18 | Outpatient (CLI) | payer MEDICARE, SELFPAY ==
--- NOTE | 2023-10-24 10:33 | MM_ITS ---
PROCEDURE INFORMATION: Exam: MG Bilateral Screening 3D Mammography Exam date and time: 10/24/2023 10:24 AM Age: 53 years old Clinical indication: Screening examination TECHNIQUE: Imaging protocol: Bilateral Screening tomosynthesis and 2D mammography including computer-aided detection (CAD) when performed. COMPARISON: 1. MG MM DIG SCREENING MAMM BI W/CAD 10/10/2022 3:07 PM 2. MG MM DIG SCREENING MAMM BI W/CAD 09/16/2021 2:57 PM FINDINGS: MAMMOGRAPHY: Breast composition: The breasts are almost entirely fatty. Mass: None. Architectural distortion: None. Calcifications: No suspicious calcifications. Asymmetric density: None. Skin thickening: None. Axillary adenopathy: None. IMPRESSION: No mammographic evidence of malignancy. Annual screening is recommended unless otherwise clinically indicated. ASSESSMENT: BI-RADS Category 1: Negative
== END ==
PROVIDERS: PCP Nurse Practitioner Family; Visit Provider Nurse Practitioner Family
DX: Z12.31 Encounter for screening mammogram for malignant neoplasm of breast (principal)
CPT/HCPCS: 77063; 77067

== ENCOUNTER 2023-11-20 08:54 | Outpatient (CLI) | payer MEDICARE, SELFPAY ==
--- NOTE | 2023-11-20 09:00 | XR_ITS ---
FINAL REPORT CLINICAL HISTORY: right knee pain FINDINGS: Right knee Three views were obtained. There is no acute fracture or dislocation. There are mild degenerative changes. Vascular calcification is identified. There is no joint effusion. IMPRESSION: Mild degenerative changes. Reviewed, Interpreted and Dictated by Mehul Calvillo III, MD Transcribed by Negrita Ventura Authenticated and . [facility]
== END 2023-11-20 23:59 ==
LOC: RAD 08:56
PROVIDERS: PCP Nurse Practitioner Family; Visit Provider Orthopaedic Surgery
DX: M25.561 Pain in right knee (principal)
CPT/HCPCS: 73562

== ENCOUNTER 2024-03-03 08:57 | Outpatient (CLI) | payer MEDICARE, SELFPAY ==
--- NOTE | 2024-03-03 09:07 | US_ITS ---
FINAL REPORT CLINICAL HISTORY: ABNORMAL LIVER FUNCTION TEST FINDINGS: Sonographic images of the right upper quadrant were obtained. The pancreas is partially obscured. Liver is fatty infiltrated., Latter is absent. There is no evidence of biliary ductal dilatation.The common duct is within normal limits. Limited images of the right kidney are unremarkable. IMPRESSION: Fatty infiltration of the liver, otherwise unremarkable right upper quadrant ultrasound. Reviewed, Interpreted and Dictated by Glenn Pride MD Transcribed by Laurie Blake Authenticated and [facility]
== END 2024-03-03 23:59 | disposition home or self-care (01) ==
LOC: RAD 08:58
PROVIDERS: PCP Nurse Practitioner Family; Visit Provider Nurse Practitioner Family
DX: R94.5 Abnormal results of liver function studies (principal)
CPT/HCPCS: 76705

== ENCOUNTER → 2024-06-26 10:22 | Outpatient (CLI) | payer MEDICARE, SELFPAY | LOC: SL 10:23 | PROVIDERS: PCP Nurse Practitioner Family; Visit Provider Specialist | DX: G47.33 Obstructive sleep apnea (adult) (pediatric); G47.36 Sleep related hypoventilation in conditions classified elsewhere | CPT/HCPCS: G0399 ==

== ENCOUNTER 2024-10-30 13:14 | Outpatient (CLI) | payer MEDICARE, SELFPAY ==
--- NOTE | 2024-10-30 13:18 | MM_ITS ---
PROCEDURE INFORMATION: Exam: MG Bilateral Screening 3D Mammography Exam date and time: 10/30/2024 1:06 PM Age: 54 years old Clinical indication: Screening examination TECHNIQUE: Imaging protocol: Bilateral Screening tomosynthesis and 2D mammography including computer-aided detection (CAD) when performed. COMPARISON: 1. MG MM DIG SCREENING MAMM BI W/CAD 10/24/2023 10:24 AM 2. MG MM DIG SCREENING MAMM BI W/CAD 10/10/2022 3:07 PM FINDINGS: MAMMOGRAPHY: Breast composition: The breasts are almost entirely fatty. Mass: None. Architectural distortion: None. Calcifications: No suspicious calcifications. Asymmetric density: None. Skin thickening: None. Axillary adenopathy: None. IMPRESSION: No mammographic evidence of malignancy. Annual screening is recommended unless otherwise clinically indicated. ASSESSMENT: BI-RADS Category 1: Negative.
== END 2024-10-30 23:59 | disposition home or self-care (01) ==
LOC: RAD 13:15
PROVIDERS: PCP Nurse Practitioner Family; Visit Provider Nurse Practitioner Family
DX: Z12.31 Encounter for screening mammogram for malignant neoplasm of breast (principal)
CPT/HCPCS: 77063; 77067

== ENCOUNTER 2025-02-27 16:55 | Outpatient (CLI) | payer MEDICARE, SELFPAY ==
--- OUTSIDE RECORDS SUMMARY | 2025-02-27 16:57 | XMS_ITS | Data Portability ---
Author Organization [facility] & ALBINA De La Fuente ADMIN Address [address] [place] [id number] Assessment Encounter Date Assessment Date Assessment LastModified by Organization Details LastModified Time 04/04/2024 04/04/2024 53-year-old female with recent mild elevation of alkaline phosphatase and findings of hepatic steatosis on ultrasonograph y: -Will obtain lab workup per below for further investigation. She will continue her current weight loss efforts. In the absence of overt transaminitis, will likely plan to have her follow-up q6 months pending the results of her labs today. She will f/u in a few weeks to discuss these results and plan moving forward. [email or web address] Not available 04/04/2024 10:42:04 Plan of Treatment Reminders Order Date Submit Date Provider Last Modified By Organization Details Last Modified Time Details Appointments None recorded. Lab PT/INR 2023 024 [facility], [address] [place] [address], [id number], 4 16:14:19 hepatitis panel (A+B+C), acute, serum 2023 024 [facility], [address] [place] [address], [id number], 4 16:14:15 hepatitis B surface Ab, qualitative , serum 2023 024 [facility], [address] [place] [address], [address], 4 16:14:20 hepatitis A Ab, total, serum 2023 024 [facility], [address] [place] [address], [address], 4 17:25:00 liver fibrosis score, calculated by ELF, serum or plasma 2023 024 [facility], [address] [place] [address], [address], 4 16:14:18 hepatic function panel, serum 2023 024 [facility], [address] [place] [address], [address], 4 16:14:14 gamma-gluta myl transferase (ggt), serum 2023 024 [facility], [address] [place] [address], [address], 4 16:14:21 5' nucleotidas e 2023 024 [facility], [address] [place] [address], [address], 4 16:14:22 calcium, ionized, quant ISE, serum or plasma 2023 024 [facility], [address] [place] [address], [address], 4 16:14:23 alkaline phosphatase isoenzymes, serum or plasma 2023 024 [facility], [address] [place] [address], [id number], 4 16:14:16 Referral None recorded. Procedures None recorded. Surgeries None recorded. Imaging None recorded. Medication Orders None recorded. Patient TargetsNo targets recorded. Patient InstructionsNo instructions recorded. Reason for Referral None Reported. Results Created Date Observation Date Name Description Value Unit Range Abnormal Flag Note LastModifiedBy Organization Detail LastModifiedTime 04/04/20 24 04/05/2024 HEPAT IC FUNCT ION PANEL (7) protein, total 7.3 g/dL 6.0-8. 5 Not Available [facility] ([facility]) [address] [place], [address], 04/09/2024 16:14:14 04/04/20 24 04/05/2024 HEPAT IC FUNCT ION PANEL (7) albumin 4.5 g/dL 3.8-4. 9 Not Available [facility] ([facility]) [address] [place], [address], 04/09/2024 16:14:14 04/04/20 24 04/05/2024 HEPAT IC FUNCT ION PANEL (7) bilirubin, total 0.4 mg/dL 0.0-1. 2 Not Available [facility] ([facility]) [address] [place], [address], 04/09/2024 16:14:14 04/04/20 24 04/05/2024 HEPAT IC FUNCT ION PANEL (7) bilirubin, direct <0.10 mg/dL 0.00-0 .40 Not Available [facility] ([facility]) [address] [place], [address], 04/09/2024 16:14:14 04/04/20 24 04/05/2024 HEPAT IC FUNCT ION PANEL (7) alkaline phosphatase 133 IU/L 44-121 above high normal Not Available [facility] ([facility]) [address] [place], [address], 04/09/2024 16:14:14 04/04/20 24 04/05/2024 HEPAT IC FUNCT ION PANEL (7) AST (SGOT) 21 IU/L 0-40 Not Available [facility] ([facility]) [address] [place], [address], 04/09/2024 16:14:14 04/04/20 24 04/05/2024 HEPAT IC FUNCT ION PANEL (7) ALT (SGPT) 20 IU/L 0-32 Not Available [facility] ([facility]) [address], [place], [address], 04/09/2024 16:14:14 04/04/20 24 04/05/2024 ACUTE HEPAT ITIS hep A Ab, IgM NEGATI VE negati ve Not Available [facility] ([facility]) [address] [facility], [place], [address], 04/09/2024 16:14:15 04/04/20 24 04/05/2024 ACUTE HEPAT ITIS HBsAg screen NEGATI VE negati ve Not Available [facility] ([facility]) [address] [facility], [place], [address], 04/09/2024 16:14:15 04/04/20 24 04/05/2024 ACUTE HEPAT ITIS hep B core Ab, IgM NEGATI VE negati ve Not Available [facility] ([facility]) [address] [facility], [place], [address], 04/09/2024 16:14:15 04/04/20 24 04/05/2024 ACUTE HEPAT ITIS HCV Ab NON REACTI VE non reacti ve Not Available [facility] ([facility]) [address] [facility], [place], [address], 04/09/2024 16:14:15 04/04/20 24 04/05/2024 ACUTE HEPAT ITIS interpretati on: COMMEN T Not infec jolly with HCV unles s early or acute infec tion is suspe cted (whic h may be delay ed in an immun ocomp romis ed indiv idual ), or other evide nce exist s to indic ate HCV infec tion. Not Available [facility] ([facility]) [address] [facility], [place], [address], 04/09/2024 16:14:15 04/04/20 24 04/05/2024 ALKAL INE PHOSP HATAS E ISOEN ZYME alkaline phosphatase COMMEN T U/L Test not perfo rmed. No speci men recei paige. REQUI RES NA HEPAR IN PLASM A Not Available [facility] ([facility]) [address] [place], [address], 04/09/2024 16:14:16 04/04/20 24 04/05/2024 ALKAL INE PHOSP HATAS E ISOEN ZYME alk-phosphat ase liver calc TNP Test not perfo rmed Not Available [facility] ([facility]) [address] [place], [address], 04/09/2024 16:14:16 04/04/20 24 04/05/2024 ALKAL INE PHOSP HATAS E ISOEN ZYME alk-phosphat ase bone calc TNP Test not perfo rmed Not Available [facility] ([facility]) [address] [place], [address], 04/09/2024 16:14:16 04/04/20 24 04/05/2024 ALKAL INE PHOSP HATAS E ISOEN ZYME alk-phosphat ase other calc TNP Test not perfo rmed Not Available [facility] ([facility]) [address] [place], [address], 04/09/2024 16:14:16 04/04/20 24 04/08/2024 ENHAN SHARON LIVER FIBRO SIS (ELF) elf(tm) score 7.93 <9.80 ELF(T M) Score Inter preta tion: Risk cut-o ffs to asses s the likel ihood of progr essio n to cirrh osis and liver -rela jolly clini tay event s withi n 3.9 years follo wing basel ine ELF score (IQR: 14.0- 22.4 month s)*: Lower risk < 9.80 Mid risk 9.80 - 11.29 Highe r risk >11.2 9 Note: The ELF(T M) Score is a unitl ess numer ical value . *Amadeo villanueva SA, Marcus VW, Scottie solorzano T, et al. Selon serti b for patie nts with bridg ing fibro sis or compe nsate d cirrh osis due to PANDYA: Jeff ts from rando mized phase III QUANG AR trial s. J Hepat ol. 2019;7 3(1): 26-39 . Not Available [facility] ([facility]) [address] [facility], [place], [address], 04/09/2024 16:14:18 04/04/20 24 04/08/2024 PROTH ROMBI N TIME, INR prothrombin time 10.2 sec Refer ence Range : 18 years and older : 9.1 - 12.0 Not Available [facility] [address] [place], [address], 04/09/2024 16:14:19 04/04/20 24 04/08/2024 PROTH ROMBI N TIME, INR INR 1.0 ratio Refer ence Range : >1 month : 0.9 - 1.2 Not Available [facility] [address] [place], [address], 04/09/2024 16:14:19 04/04/20 24 04/05/2024 HEP B SURFA CE AB, QUAL hep B surface Ab, qual NON REACTI VE Non React zainab: Incon siste nt with immun ity, less than 10 mIU/m L React zainab: Consi stent with immun ity, great er than 9.9 mIU/m L Not Available [facility] ([facility]) [address] [facility], [place], [address], 04/09/2024 16:14:20 04/04/20 24 04/05/2024 GGT GGT 28 IU/L 0-60 Not Available [facility] ([facility]) [address] [facility], [place], [address], 04/09/2024 16:14:21 04/04/20 24 04/09/2024 5' NUCLE OTIDA SE 5' nucleotidase 5 IU/L 0-11 Not Available [facility] ([facility]) [address] [place], [address], 04/09/2024 16:14:22 04/04/20 24 04/07/2024 CALCI UM, IONIZ ED, SERUM calcium, ionized, serum 5.0 mg/dL 4.5-5. 6 Not Available [facility] ([facility]) [address] [facility], [place], [address], 04/09/2024 16:14:23 04/04/20 24 04/05/2024 SPECI MEN STATU S REPOR T specimen status report COMMEN T Test not perfo rmed. No speci men recei paige. TEST: [id number] 2 Alkal ine Phosp hatas e Isoen zyme REQUI RES NA HEPAR IN PLASM A Not Available [facility] ([facility]) [address] [facility], [place], [address], 04/09/2024 16:14:25 Result Notes None recorded. Problems Name Problem SNOMED Code Status Onset Date Resolution Date Notes Provider Name and Address Organization Details Recorded Time Steatosis of liver 937596533 Active 2023 Catarino Barroso PA-C [address] , [place], [address] , [facility] - [facility] & [place] 4 10:00:10 Alkaline phosphatase above reference range 499008655 Active 2023 Catarino Barroso PA-C [address] , [place], [address] , [facility] - [facility] & [place] 4 10:00:15 Obesity 722374105 Active 2023 Catarino Barroso PA-C [address] , [place], [address] , [facility] - [facility] & [place] 4 10:39:41 Problem Notes None recorded. Procedures Surgical History Date Name Laterality Status Provider Name and Address Organization Details Recorded Time cholecystectomy completed Rachelle Gutierrez MT - [facility] [place] 04/04/2024 09:54:23 Imaging Results None recorded. Procedure Notes None recorded. Medical Equipment None Reported. Allergies Allergen ID Allergen Name Allergen Category Reaction Reaction Severity Criticality Documentation Date Start Date Code Code System Note Provider Name and Address Organization Details Recorded Time 415616 Ceclor medicatio n Not available Not available Not available 04/04/202486867 5 RxNorm PIYUSH Cartagena [facility] [place] 4 09:54:38 570688 Cymbalta medicatio n Not available Not available Not available 04/04/2024 58572 4 RxNorm PIYUSH [place]a [facility] & [place] 4 09:54:52 046328 Cipro medicatio n Not available Not available Not available 04/04/202417606 3 RxNorm PIYUSH Cart[place]a [facility] & [place] 4 09:55:06 Medications Name Sig Start Date Stop Date Status Note LastModified by Organization Details LastModified Time furosemide 40 mg tablet TAKE 1 TABLET BY MOUTH ONCE DAILY active Not Available Not Available No t Available methocarbamol 500 mg tablet TAKE 1 TABLET BY MOUTH THREE TIMES DAILY NEEDED FOR MUSCLE SPASM active Not Available Not Available No t Available azithromycin 250 mg tablet TAKE 2 TABLETS BY MOUTH ON DAY 1, AND THEN TAKE 1 TABLET BY MOUTH ONCE A DAY ON DAY 2 THROUGH DAY 5 active Not Available Not Available No t Available prednisone 20 mg tablet TAKE 1 TABLET BY MOUTH TWICE DAILY FOR 5 DAYS active Not Available Not Available No t Available phentermine 37.5 mg tablet TAKE 1 TABLET BY MOUTH ONCE DAILY FOR OBESITY FOR 30 DAYS active Not Available Not Available No t Available spironolactone 25 mg tablet TAKE 1 TABLET BY MOUTH ONCE DAILY active Not Available Not Available No t Available levothyroxine 100 mcg tablet TAKE 1 TABLET BY MOUTH ONCE DAILY active Not Available Not Available No t Available gabapentin 100 mg capsule TAKE 1 CAPSULE BY MOUTH ONCE DAILY AT BEDTIME active Not Available Not Available No t Available metoprolol succinate ER 25 mg tablet,extende d release 24 hr TAKE 1 TABLET BY MOUTH ONCE DAILY active Not Available Not Available No t Available albuterol sulfate HFA 90 mcg/actuation aerosol inhaler INHALE 2 PUFFS BY MOUTH EVERY 4 TO 6 HOURS NEEDED active Not Available Not Available No t Available fluticasone propionate 50 mcg/actuation nasal spray,suspensi on USE 1 TO 2 SPRAY(S) IN EACH NOSTRIL ONCE DAILY active Not Available Not Available No t Available levalbuterol HFA 45 mcg/actuation aerosol inhaler INHALE 2 PUFFS BY MOUTH EVERY 4 HOURS NEEDED active Not Available Not Available No t Available levocetirizine 5 mg tablet TAKE 1 TABLET BY MOUTH ONCE DAILY active Not Available Not Available No t Available Arnuity Ellipta 100 mcg/actuation powder for inhalation INHALE 1 PUFF BY MOUTH ONCE DAILY DIRECTED RINSE MOUTH AFTER USE active Not Available Not Available No t Available Vitals Date Recorded Body weight Body mass index (BMI) Body height Body temperature Heart rate Systolic blood pressure Diastolic blood pressure Provider Name and Address Organization Details Last Updated DateTime 4 32538.1 g 36.5 kg/m2 162.56 cm 96.8 [degF] 79 /min 126 mm[Hg] 88 mm[Hg] [facility] 09[facility] Social History None recorded. Functional Status None recorded. Mental Status None recorded. Family History Nothing Reported. Medical History No medical history recorded. Gynecological HistoryNo gynecological history recorded. Obstetrics History GPAL:G 0 P 0 0 0 0 Past Encounters Encounter ID Performer Location Encounter Start Date Encounter Closed Date Diagnosis/Indication Diagnosis SNOMED-CT Code Diagnosis ICD10 Code Diagnosis Note [id number] Catarino Barroso PA-C [facility] [address] [phone] 04/04/2024 09:34:07 04/04/2024 10:50:55 Steatosis of liver 298105884 K76.0 Alkaline p hosphatase above reference range 237636074 R74.8 Obesity 592710318 E66.9 Health Concerns Section Related Observation LastModified by Organization Detai ls LastModified Time None Recorded Concern Status LastModified by Organization Details LastModified Time None Recorded Advance Directives Directive None Recorded Payers Encounter Date Sequence Insurance Name Policy Number Policy La Covered Member ID La Member ID Guarantor Name 04/04/2024 1 [place]MEDICARE REPLACEMENT HMO) [id number] Regina Ambriz [id number] Notes Date Note Type Note Provider Name and Address Organization Details Recorded Time 04/04/2024 text/html Ms. Ambriz is a very pleasant 53-year-old female with past medical history significant for hyperlipidemia, prediabetes, NM, thyroid cancer, and obesity who was referred by Julio Cesar Donaldson APRN for evaluation of hepatic steatosis and elevated alkaline phosphatase. Patient underwent recent lab work that showed alkaline phosphatase elevated at 148 with otherwise normal hepatic function labs. Hemoglobin A1c was mildly elevated at 5.8% at that time. Liver ultrasound was performed on March 03, 2024 that showed fatty infiltration of the liver. She does not recall a history of abnormal hepatic function labs prior to the most recent findings. She denies a family history of cirrhosis or liver disease otherwise. She denies alcohol use. Catarino Barroso PA-C [address], [place], [address], [facility] - [facility] - [place] & [place] 04/04/2024 10:42:22 OBGyn Episode No OBEpisode recorded.
--- NOTE | 2025-02-27 16:58 | MR_ITS ---
PROCEDURE INFORMATION: Exam: MR Cervical Spine Without Contrast Exam date and time: 02/27/2025 5:03 PM Age: 54 years old Clinical indication: Right sided neck pain with burning and tingling down right arm. HX of neck surgery TECHNIQUE: Imaging protocol: Magnetic resonance imaging of the cervical spine without contrast. COMPARISON: US THYROID 04/02/2020 1:42 PM FINDINGS: Bones/joints: Postsurgical changes of C3-C4 anterior cervical discectomy and fusion. No fracture. Straightening of normal cervical lordosis. Spinal cord: Normal signal. No cord compression. C2-C3: No significant disc bulge or herniation. No severe spinal canal stenosis. No significant neural foraminal narrowing. C3-C4: Postsurgical changes of anterior cervical discectomy and fusion. No severe spinal canal stenosis. No significant neural foraminal narrowing. C4-C5: No significant disc bulge or herniation. No severe spinal canal stenosis. Moderate bilateral neural foraminal narrowing. C5-C6: Circumferential disc bulge. Bilateral disc osteophyte complexes. No significant disc bulge or herniation. Mild spinal canal stenosis. Severe bilateral neural foraminal narrowing. C6-C7: Broad-based posterior disc bulge. Left disc osteophyte complex. Mild spinal canal stenosis. Mild right and moderate left neural foraminal narrowing. C7-T1: No significant disc bulge or herniation. No severe spinal canal stenosis. No significant neural foraminal narrowing. Soft tissues: Unremarkable. Vasculature: Expected flow voids in the vertebral arteries. IMPRESSION: 1. Postsurgical changes of C3-C4 anterior cervical discectomy and fusion. 2. Multilevel cervical spondylosis with notable severe bilateral C5-C6 neural foraminal narrowing. Mild C5-C6 and C6-C7 spinal canal stenosis.
== END 2025-02-27 23:59 | disposition home or self-care (01) ==
LOC: RAD 16:56
PROVIDERS: PCP Nurse Practitioner Family; Visit Provider Nurse Practitioner Family
DX: M54.2 Cervicalgia (principal)
CPT/HCPCS: 72141

== ENCOUNTER 2025-07-28 08:48 | Outpatient (RCR) | payer MEDICARE, SELFPAY | END 2025-07-28 23:59 | disposition home or self-care (01) | LOC: PT 08:48 | PROVIDERS: Visit Provider Neurological Surgery | DX: M54.12 Radiculopathy, cervical region (principal) | CPT/HCPCS: 97161 ==

== ENCOUNTER 2025-08-13 09:00 | Outpatient (RCR) | payer MEDICARE, SELFPAY | END 2025-08-13 23:59 | disposition home or self-care (01) | LOC: PT 09:00 | PROVIDERS: Visit Provider Neurological Surgery | DX: M54.12 Radiculopathy, cervical region (principal) | CPT/HCPCS: 97014; 97110; 97140; G0283 ==

== ENCOUNTER 2025-10-20 09:59 | Outpatient (CLI) | payer MEDICARE, SELFPAY ==
--- OUTSIDE RECORDS SUMMARY | 2025-01-21 12:33 | XMS_ITS | Encounter Summary ---
[facility] [address] [place] [address] Care Team Providers Care Pear Picker Name Role Phone Emmy Bartlett MD, Gareth Primary Care Provider + Reason for Visit * Diagnostic Imaging (Routine) - Closed Specialty Diagnoses / Procedures Referred By Eula suarez Referred To Contact Radiology Diagnoses Multiple thyroid nodules Procedures US Thyroid Ayaka Cruz, DO [address] [place] [address] Phone: tel: fax: Referral ID Status Reason Start Date Expiration Date Visits Re quested Visits Authorized [id number] Closed 01/21/2025 04/22/2026 1 1 Encounter Details Date Type Department Care Team (Late st Contact Info) Description 01/21/2025 1:33 PM EDT Hospital Encounter [facility] [address] [place] [address] Social History Tobacco Use Types Packs/Day Years Used Date Smoking Tobacco: Former Cigarettes 1 14 1 985 - 1998 Passive Smoke Exposure: Past Smokeless Tobacco: Never Alcohol Use Standard Drinks/Week Comments Not Currently 0 (1 standard drink = 0.6 oz pur e alcohol) Comments Unknown Sex and Gender Information Value Date Recorded Sex Assigned at Not on file Legal Sex Female 1:29 PM EDT Gender Identity Not on file Sexual Orientation Not on file documented as of this encounter Plan of Treatment Not on file documented as of this encounter Procedures Procedure Name Priority Date/Time Associated Diagnosis Comments US THYROID Routine 01/21/2025 1:33 PM EDT Multiple thyroid nodules documented in this encounter Results * US Thyroid (01/21/2025 1:33 PM EDT) Narrative SYSTEMGENERATED, DOCUMENTATION - 01/21/2025 1:33 PM EDT Please see performing physician's note for result. us Ayaka Craft Pacitti DO IMG US ORDERABLES Final R esult documented in this encounter Visit Diagnoses Not on filedocumented in this encounter Care Teams Pear Picker Relationship Specialty Start Date End Date Gareth Booth MD [address] [place] [address] PCP - General Otolaryngology 04/28/20 01/21/25 documented as of this encounter
--- NOTE | 2025-10-20 10:01 | XR_ITS ---
FINAL REPORT CLINICAL HISTORY: Evaluation of right foot pain FINDINGS: AP, oblique and lateral views of the right foot were obtained. There is no prior exam for comparison. There is no acute fracture or dislocation. Mild multi joint degenerative disease is noted. Soft tissues are unremarkable. IMPRESSION: No acute osseous abnormality of the right foot. Mild degenerative disease. Reviewed, Interpreted and Dictated by Flaquita High MD Transcribed by Gladys Segovia Authenticated and [facility]
--- NOTE | 2025-10-20 10:01 | XR_ITS ---
FINAL REPORT CLINICAL HISTORY: Evaluation of left great toe pain FINDINGS: AP, oblique and lateral views of the left foot were obtained. There is no prior exam for comparison. There is no acute fracture or dislocation. Mild degenerative disease of the midfoot. Soft tissues are unremarkable. IMPRESSION: No acute osseous abnormality of the left foot. Degenerative disease. Reviewed, Interpreted and Dictated by Flaquita High MD Transcribed by Gladys Segovia Authenticated and [facility]
--- OUTSIDE RECORDS SUMMARY | 2025-10-20 10:25 | XMS_ITS | Data Portability ---
Author Organization [facility] CHELSEA NamS [place] CLOS[facility] Address [address] [place] [address] Care Team Providers Care Consulting Group Analyst Name Role Phone JANES DUTTON Primary Care Provider [phone] Assessment Encounter Date Assessment Date Assessment LastModified by Organization Details LastModified Time 03/09/2025 03/09/2025 MRI cervical spine. 02/27/2025. [facility]. Report only. Report indicates severe bilateral C5-6 neuroforaminal stenosis Ms. Yang is a 54-year-old female status post a C3-4 ACDF in about 1999 with 2 to 3 months of right radicular arm pain. Dr. Carrizales discussed with her that she will need to review the MRI first, but her symptoms are consistent with a C5-6 and/or C6-7 radiculopathy. The MRI report does indicate severe bilateral foraminal stenosis at C5-6. She is likely a candidate for a C5-6 ACDF +/- C4-5 and or C6-[address] Carrizales's review of the imaging. Dr. Carrizales discussed the surgery including risks. Alternatively she can try formal PT in addition to the chiropractic treatment or injections with pain management. Ms. Ambriz is very limited by her pain and would like to proceed with surgery. She will meet with our surgery coordinator today. We will have her get a CT cervical spine and AP/lat flex/ext cervical x rays prior to surgery. Dr. Carrizales will call Ms. Ambriz after she has reviewed the MRI imaging to discuss if any other levels need to be addressed in addition to C5-6. Ms. Ambriz and her understand and agree with this plan. Seen by Dr. Carrizales and myself. Addendum 03/18/25 Marly Landeros PA-C MRI and CT cervical spine reviewed with Dr. Carrizales. There are significant degenerative changes and foraminal stenosis at both C5-6 and C6-7. Dr. Carrizales would not recommend fusing these levels without also addressing C4-5 as she is fused at C3-4 and an unfused level between two fused levels would be at high risk for fairly quick degeneration. Will plan on C4-C7 ACDF. [email or web address] Not available 03/18/2025 12:24:26 Plan of Treatment Reminders Order Date Submit Date Provider Last Modified By Organization Details Last Modified Time Details Appointments None recorded. Lab None recorded. Referral None recorded. Procedures None recorded. Surgeries None recorded. Imaging None recorded. Medication Orders gabapentin 300 mg capsule 2024 0[id number], [address], [address], 11:31:57 Patient TargetsNo targets recorded. Patient InstructionsNo instructions recorded. Reason for Referral None Reported. Results Created Date Observation Date Name Description Value Unit Range Abnormal Flag Note LastModifiedBy Organization Detail LastModifiedTime 03/06/20 25 02/27/2025 MRI, cervi tay spine , w/o contr ast No observ ation record ed. BARCODE Not Available 2024 15:39:10 03/09/20 25 03/09/2025 XR, cervi tay spine , 4 or 5 view [facility] [address] [place] [address] Lee erick Name: REGINA suarez : 1969 Lee suarez Orderi ng Provid er: LUISA Rivera EXAM DATE: 2024 EXAM: XR CERVIC AL SPINE AP/LAT /FLEX/ EXT CLINIC AL INFORM ATION: IMAGES PROVID ED: Latera l views of the cervic al spine in flexio n and extens ion. COMPAR DEMETRIUS: None. FINDIN GS: FINDIN GS: Verteb ral body height s are normal . Previo us anteri or fixati on and interb edmundo fusion C3-4. No loosen ing is suspec jolly. Modera te degene rative disc diseas e change s are presen t. No abnorm ality of alignm ent is seen. No instab ility is seen on flexio n or extens ion. No radiog raphic eviden ce of injury is noted. IMPRES CINDA: Modera te DDD with uncomp licate d appear ing C3-4 fusion . No instab ility. Interp reted By: Ulises Alonzo MD Electr onical ly Signed By: Ulises Alonzo MD on 03/09/20 11:30 AM [facility] [address] [place], [address], 03/18/2025 12:39:42 03/13/2003/13/2025 CT, cervi tay spine , w/o contr ast [facility] [address] [place] [address] Patien t Name: REGINA CARIAS Y Patien t : 1969 Patien t Orderi ng Provid er: LUISA PENNINGTON Y EXAM DATE: 2024 EXAM: CT CERVIC AL WITHOU T CONTRA ST HISTOR Y: 54-yea r-old female with neck pain and prior cervic al fusion . COMPAR DEMETRIUS: Radiog raph dated 03/09/20 and MRI dated 03/08/20. Techni que: 1 mm direct axial slices were obtain ed throug h the cervic al spine. Comput er-gen erated axial, rebolledo l, and sagitt al recons tructi ons are provid ed for interp retati on. FINDIN GS: There is prior discec laura, interb edmundo graft and anteri or fusion at C3-C4. There is solid osseou s fusion at this level. There is no eviden ce of loosen ing of the hardwa re. There is mild dextro curvat ure of the cervic al spine. There is no focal sublux ation. There is no fractu re or pathol ogic intrao sseous lesion . There is mild anteri or margin al osteop hytic spurri ng. No parasp inous soft tissue abnorm ality is identi fied. The visual ized spinal cord and identity management consultant ior fossa of the brain are normal in appear ance. The cranio cervic al juncti on is normal in appear ance. There are mild degene rative change s at C1-C2. C2-C3: There is a minima l disc bulge. There is no centra l canal stenos is. There is no neural forami nal stenos is. C3-C4: There is prior fusion with minima l endpla te spurri ng. There is no centra l canal stenos is. There is no neural forami nal narrow ing. C4-C5: There is a mild disc bulge and minima l uncove rtebra l spurri ng. There is no centra l canal stenos is. There is no neural forami nal narrow ing. C5-C6: There is a mild disc bulge and modera te uncove rtebra l spurri ng. There is no centra l canal stenos is. There is severe bilate ral neural forami nal stenos is. C6-C7: There is a mild disc bulge and mild endpla te spurri ng. There is no centra l canal stenos is. There is mild left neural forami nal stenos is. C7-T1: This interv ertebr al disc is essent ially normal in appear ance. The visual ized thorac ic spine are essent ially normal in appear ance. IMPRES CINDA: 1. There is prior ACDF at C3-C4. There is no eviden ce of compli cation and solid osseou s fusion at this level. 2. There is severe bilate ral neural forami nal narrow ing at C5-C6. Interp reted By: Estephania uribe MD Electr onical ly Signed By: Estephania uribe MD on 03/13/20 25 5:41 PM [facility] [address] [facility], [place], [address], 03/18/2025 12:39:43 04/20/20 25 04/20/2025 XR, cervi tay spine , 2 or 3 view [facility] [address] [facility] [place] [address] [phone] Patiarnulfo t Name: REGINA suarez : 1969 Lee suarez Orderi ng Provid er: LUISA TIMONE Y EXAM DATE: 2024 EXAM: XR CERVIC AL AP/LAT CLINIC AL INFORM ATION: Pain. Surger y follow -up IMAGES PROVID ED: AP, latera l, open mouth and submen brent views of the cervic al spine COMPAR DEMETRIUS: 03/09/20 25 FINDIN GS: The noted is prior anteri or fixati on C3-4. The patien t now has fixati on at C4-5, C5-6, and C6-7. No hardwa re loosen ing or fractu re is noted. No prever tebral soft tissue swelli ng. No radiog raphic eviden ce of injury is seen. IMPRES CINDA: Multil evel cervic al spine fusion proced ures with no compli cation indica jolly Interp reted By: Ulises Alonzo MD Electr onical ly Signed By: Ulises Alonzo MD on 025 2:38 PM [email or web address] [facility] [address] [place], [address], 05/18/2025 09:04:57 07/31/20 25 07/27/2025 XR, cervi tay spine , 2 or 3 view [facility] [address] [facility] [place] [address] [phone] Patiarnulfo t Name: REGINA suarez : 1969 Lee suarez Orderi ng Provid er: [facility] Y EXAM DATE: 2024 EXAM: XR CERVIC AL AP/LAT CLINIC AL INFORM ATION: Follow -up of multil evel anteri or fusion IMAGES PROVID ED: AP, latera l, open mouth and submen brent views of the cervic al spine COMPAR DEMETRIUS: Cervic al spine 025 FINDIN GS: There is previo us anteri or fusion at C3-4 with anteri or plate and screws and more recent multil evel anteri or fusion at C4-5, C5-6, and C6-7 with interb edmundo spacer s and obliqu e screws . The alignm ent appear s satisf actory and unchan ged from . No compli cating featur es are seen. IMPRES CINDA: Multil evel anteri or fusion unchan ged from . Interp reted By: Lidia campos MD Electr on ly Signed By: Lidia campos MD on 5:50 AM [facility] [address] [place], [address], 08/26/2025 15:20:19 Result Notes Documentation Provider Name and Address Organization Details Recorded Time Xr, Cervical Spine, 4 Or 5 View : [facility] [address] [place] [id number] Patient Name: REGINA AMBRIZ Patient : 1970 Patient Ordering Provider: LUISA CARRIZALES EXAM DATE: 03/09/2025 EXAM: XR CERVICAL SPINE AP/LAT/FLEX/EXT CLINICAL INFORMATION: IMAGES PROVIDED: Lateral views of the cervical spine in flexion and extension. COMPARISON: None. FINDINGS: FINDINGS: Vertebral body heights are normal. Previous anterior fixation and interbody fusion C3-4. No loosening is suspected. Moderate degenerative disc disease changes are present. No abnormality of alignment is seen. No instability is seen on flexion or extension. No radiographic evidence of injury is noted. IMPRESSION: Moderate DDD with uncomplicated appearing C3-4 fusion. No instability. Interpreted By: Ulises Alonzo MD A CARRIZALES MD [address] [place] [address], [phone], [facility] 03/18/2025 12:39:42 Ct, Cervical Spine, W/o Contrast : [facility] [address] [place] [address] Patient Name: REGINA AMBRIZ Patient : 1970 Patient Ordering Provider: LUISA CARRIZALES EXAM DATE: 03/13/2025 EXAM: CT CERVICAL WITHOUT CONTRAST HISTORY: 54-year-old female with neck pain and prior cervical fusion. COMPARISON: Radiograph dated 03/09/2025 and MRI dated 03/08/2011. Technique: 1 mm direct axial slices were obtained through the cervical spine. Computer-generated axial, coronal, and sagittal reconstructions are provided for interpretation. FINDINGS: There is prior discectomy, interbody graft and anterior fusion at C3-C4. There is solid osseous fusion at this level. There is no evidence of loosening of the hardware. There is mild dextrocurvature of the cervical spine. There is no focal subluxation. There is no fracture or pathologic intraosseous lesion. There is mild anterior marginal osteophytic spurring. No paraspinous soft tissue abnormality is identified. The visualized spinal cord and posterior fossa of the brain are normal in appearance. The craniocervical junction is normal in appearance. There are mild degenerative changes at C1-C2. C2-C3: There is a minimal disc bulge. There is no central canal stenosis. There is no neural foraminal stenosis. C3-C4: There is prior fusion with minimal endplate spurring. There is no central canal stenosis. There is no neural foraminal narrowing. C4-C5: There is a mild disc bulge and minimal uncovertebral spurring. There is no central canal stenosis. There is no neural foraminal narrowing. C5-C6: There is a mild disc bulge and moderate uncovertebral spurring. There is no central canal stenosis. There is severe bilateral neural foraminal stenosis. C6-C7: There is a mild disc bulge and mild endplate spurring. There is no central canal stenosis. There is mild left neural foraminal stenosis. C7-T1: This intervertebral disc is essentially normal in appearance. The visualized thoracic spine are essentially normal in appearance. IMPRESSION: 1. There is prior ACDF at C3-C4. There is no evidence of complication and solid osseous fusion at this level. 2. There is severe bilateral neural foraminal narrowing at C5-C6. Interpreted By: Aditya Herring MD A CARRIZALES MD [address] [place] [address], [phone], [facility] 03/18/2025 12:39:43 Xr, Cervical Spine, 2 Or 3 View : [address] [address] Patient Name: REGINA AMBRIZ Patient : 1970 Patient Ordering Provider: LUISA CARRIZALES EXAM DATE: 04/20/2025 EXAM: XR CERVICAL AP/LAT CLINICAL INFORMATION: Pain. Surgery follow-up IMAGES PROVIDED: AP, lateral, open mouth and submental views of the cervical spine COMPARISON: 03/09/2025 FINDINGS: The noted is prior anterior fixation C3-4. The patient now has fixation at C4-5, C5-6, and C6-7. No hardware loosening or fracture is noted. No prevertebral soft tissue swelling. No radiographic evidence of injury is seen. IMPRESSION: Multilevel cervical spine fusion procedures with no complication indicated Interpreted By: Ulises Alonzo MD Michael Williserson Fletcher [facility] 05/18/2025 09:04:57 Xr, Cervical Spine, 2 Or 3 View : [address] [address] Patient Name: REGINA AMBRIZ Patient : 1970 Patient Ordering Provider: LUISA CARRIZALES EXAM DATE: 07/27/2025 EXAM: XR CERVICAL AP/LAT CLINICAL INFORMATION: Follow-up of multilevel anterior fusion IMAGES PROVIDED: AP, lateral, open mouth and submental views of the cervical spine COMPARISON: Cervical spine 04/20/2025 FINDINGS: There is previous anterior fusion at C3-4 with anterior plate and screws and more recent multilevel anterior fusion at C4-5, C5-6, and C6-7 with interbody spacers and oblique screws. The alignment appears satisfactory and unchanged from 04/20/2025. No complicating features are seen. IMPRESSION: Multilevel anterior fusion unchanged from 04/20/2025. 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 927995411 Active 2014 From Automated Load;Provi nelia: Brea Jang;Stat us: Active Not Available [facility] 6 05:28:50 Insomnia 300169879 Active 2014 From Automated Load;Provi nelia: Brea Jang;Stat us: Active Not Available [facility] 6 05:28:50 Cervico-o ccipital neuralgia 42194052 Active 2014 From Automated Load;Provi nelia: Brea Jang;Stat us: Active Not Available [facility] 6 05:28:50 Finding of sensation by site Active 2014 From Automated Load;Provi nelia: Brea Jang;Stat us: Active Not Available [facility] 6 05:28:50 Problem Notes None recorded. Procedures Surgical History Date Name Laterality Status Provider Name and Address Organization Details Recorded Time 023 Injection - Joint/Bursa, Major completed Pura Fitzpatrick [facility] 07/24/2023 14:21:36 023 Injection - Joint/Bursa, Major arvin Fitzpatrick [facility] 01/04/2023 13:36:52 022 Injection - Joint/Bursa, Major completed Reta Whitehead [facility] 09/05/2022 12:51:38 022 Injection - Joint/Bursa, Major completed [facility] 03/01/2022 09:27:02 022 OT Evaluation - Moderate complexity completed SARAH REDDY, SUDHAR/L, CHT [address] [place], [address], [facility] 01/23/2022 12:43:48 022 Trigger Finger Release - Daniela completed MINESH GOMEZ MD [address] [place], [address], [facility] 01/18/2022 08:09:53 021 Stent placemt retro carotid completed Lila Radha [facility] 01/16/2022 11:15:22 021 Injection - Joint/Bursa, Major completed Natalie hCand [facility] 07/13/2021 15:08:08 021 Injection - Trigger Finger, Ortho completed MINESH GOMEZ MD [address] [place], [address], [facility] 05/17/2021 08:47:35 020 Laryngoscopy Flex completed Terry Mak [facility] 04/26/2020 14:19:46 020 Injection - Joint/Bursa, Major completed Fanny JANG PA-C [address] [place], [address], [facility] 03/17/2020 12:50:05 019 OT Therapeutic Exercise completed GEOFF SANDERS JR, OTR/L, CHT [address] [place], [address], [facility] 03/17/2019 10:46:31 019 Orthotic Management; Initial Encounter completed GEOFF SANDERS JR, OTR/L, CHT [address] [place], [address], [facility] 03/11/2019 15:19:37 019 OT Evaluation - Low complexity completed GEOFF SANDERS JR, OTR/L, CHT [address] [place], [address], [facility] 03/11/2019 15:19:12 019 Op Note completed MINESH GOMEZ MD [address] [place], [address], [facility] 02/24/2019 11:12:48 019 Electromyography (EMG) with Nerve Conduction Study (NCV) completed Sulma Madrid (Nicky) [facility] 02/14/2019 10:48:58 019 Injection - Tendon Sheath/Ligament completed MINESH GOMEZ MD [address] [place], [address], [place] [facility] 01/08/2019 13:31:54 Cholecystectomy completed Terry Rivera - [facility] 04/26/2020 14:21:14 Imaging Results None recorded. Procedure Notes None recorded. Medical Equipment None Reported. Allergies Allergen ID Allergen Name Allergen Category Reaction Reaction Severity Criticality Documentation Date Start Date Code Code System Note Provider Name and Address Organization Details Recorded Time 572692 Cipro medicatio n hives Not available Not available 09/28/2016200756 3 RxNorm React ion: HIVES ; Comme nt: Creat ed By: Bronson huff; Creat ed Date: 008 10:33 :00 AM; Not Available [facility] 6 10:41:13 218386 Ceclor medicatio n hives Not available Not available 09/29/2016200763 5 RxNorm React ion: HIVES ; Comme nt: Creat ed By: Bronson huff; Creat ed Date: 008 10:32 :39 AM; Not Available [facility] 6 03:28:47 366363 Cymbalta medicatio n Not available Not available Not available 09/29/20162013 95832 4 RxNorm Comme nt: Creat ed By: Alycia elizalde;Cr eated Date: 08/25 9:53: 05 AM; Not Available [facility] 6 04:14:49 [id number] cefaclor medicatio n Not available Not available low 10/16/20252024 2176 RxNorm Not Available arielle - External Data Service - prod 5 12:54:24 621796 ciproflox acin medicatio n Not available Not available low 10/16/20252024 2551 RxNorm Not Available arielle - External Data Service - prod 5 12:54:24 047087 duloxetin e medicatio n Not available Not available Not available 10/16/20252024 69334 RxNorm Tempo rary paral ysis Not Available arielle - External Data Service - prod 12:54:24 Medications Name Sig Start Date Stop Date Status Note LastModified by Organization Details LastModified Time promethaz ine 12.5 mg tablet Every six hours 07/24 completed Duration : 30 days;Ins truction s: 1-2 tabs at onset migraine ; may repeat q6h PRN;Freq uency: q6h;Alt Frequenc y: prn;Medi cation Descript ion: prometha zine; Dosage:1 -2; Route:or al; refills: 11; Quantity :30 tablet Not Available Not Available Not Available clopidogr el 75 mg tablet Take 1 tablet every day by oral route. active Not Available Not Available No t Available tramadol 50 mg tablet TAKE 1 TABL PO Q 4-6 HRS PRN FOR SEVERE POST SURGICAL PAIN 2021 active Not Available Not Available Not Avai lable amitripty line 50 mg tablet Bedtime 07/24 completed Duration : 30 days;Sriram quency: hs;Medic ation Descript ion: amitript yline; Dosage:1 ; Route:or al; refills: 11; Quantity :30 tablet Not Available Not Available Not Available Zofran 4 mg tablet Every eight hours 07/24 completed Duration : 30 days;Ins truction s: as alternat zainab to prometha zine: 1 at onset migraine ; may repeat q8h prn;Freq uency: q8h;Alt Frequenc y: prn;Medi cation Descript ion: ondanset brooke; Dosage:1 ; Route:or al; refills: 6; Quantity :20 tablet Not Available Not Available Not Available magnesium oxide 400 mg (241.3 mg magnesium ) tablet 07/24 completed Medicati on Descript ion: magnesiu m oxide; refills: 0 Not Available Not Available Not Available hydrocodo ne 7.5 mg-acetam inophen 325 mg tablet Take 1 tablet every 6 hours by oral route as needed. 2024 active Not Available Not Available Not Avai lable Neurontin 100 mg capsule TAKE 1 CAPSULE PO QHS FOR 1 WEEK 2021 active Not Available Not Available Not Avai lable gabapenti n 300 mg capsule Take 1 capsule 3 times a day by oral route. 2024 active Not Available Not Available Not Avai lable irbesarta n 75 mg tablet Take 1 tablet every day by oral route. 01/16 completed Not Available Not Available Not Available Percocet 5 mg-325 mg tablet TAKE 1-2 TABLET PO Q 4-6 HRS PRN SEVERE POST SURGICAL PAIN 05/17 completed Not Available Not Available Not Available Ibuprofen -Pmr 200 mg tablet Daily 05/17 completed Duration : 30 days;Sriram quency: daily;Me dication Descript ion: ibuprofe n; Dosage:6 ; Route:or al; refills: 0; Quantity :60 Not Available Not Available Not Available cyclobenz aprine 5 mg tablet Take 1 tablet 3 times a day by oral route. 2024 active Not Available Not Available Not Avai lable rosuvasta tin 10 mg tablet Take 1 tablet every day by oral route. active Not Available Not Available No t Available levothyro xine active Not Available Not Available Not Available Vitamin D 500 mg active Not Available Not Estela ilable Not Available Excedrin 07/24 completed Medicati on Descript ion: APAP/ASA /caffein e; Route:or al; refills: 0 Not Available Not Available Not Available metoprolo l succ 25 mg-hydroc hlorothia zide 12.5 mg tablet,ex t.rel 24 hr Take 1 tablet every day by oral route. active Not Available Not Available No t Available [employer] [facility] Collagen active Not Available Not Available Not Available aspirin 81 mg capsule Take 1 capsule every day by oral route. active Not Available Not Available No t Available Vitals Date Recorded Body height Provider Name an d Address Organization Details Last Updated DateTime 03/09/2025 160.02 cm Florecita [facility] 03/09/2025 09:56:54 Date Recorded Body height Provider Name an d Address Organization Details Last Updated DateTime 04/20/2025 160.02 cm Florecita [facility] 04/20/2025 14:51:57 Date Recorded Body height Pain severity - 0-10 verbal numeric rating [Score] - Reported Provider Name and Address Organization Details Last Updated DateTime 07/27/2023 160.02 cm 5 Reta PICKETT [facility] 07/27/2023 10:34:30 Date Recorded Body height Provider Name an d Address Organization Details Last Updated DateTime 07/27/2025 160.02 cm Florecita Chen [facility] 07/27/2025 11:14:34 Social History Question Answer Notes LastModified by Organizat [employer] Details LastModified Time Tobacco Smoking Status Former Smoker Liz lloyd, [facility] 04/26/2020 13:30:15 What Is Your Level Of Caffeine Consumption? Moderate Coffee, Tea, Mountain Dew Information not available 01/07/2019 Which Of Your Hands Is Dominant? Right [email or web address] Information not available 01/07/2019 Marital Status [email or web address] Information not available 01/07/2019 What Was The Date Of Your Most Recent Tobacco Screening? 01/16/2022 [email or web address] Information not available 01/16/2022 How Much Tobacco Do You Smoke? 2 PPD [email or web address] Information not available 04/26/2020 How Many Years Have You Smoked Tobacco? 30 [email or web address] Information not available 04/26/2020 Sex: Female Functional Status Question Answer Note LastModified by Organizat ion Details LastModified Time Do you use any illicit or recreational drugs? No [email or web address] Information not available 01/07/2019 What is your level of alcohol consumption? None Information not available 01/07/2019 Are you currently employed? No [email or web address] Information not available 01/07/2019 Mental Status None recorded. Family History Relationship Description Onset Age of this Age Resolved Age Notes LastModified by Organization Details LastModified Time Mother Disorder of thyroid gland [email or web address] Not available 04/26 13:29:40 Mother Heart disease [email or web address] Not available 03/09 09:05:43 Mother Kidney disease [email or web address] Not available 03/09 09:05:43 Sister Disorder of thyroid gland 40 [email or web address] Not available 03/09 09:05:43 Medical History Condition Response TENS Unit for current problem Y Traction for current problem N Massage Therapy for current problem Y Gout N Other N Thyroid Disease N Hyperthyroidism N Emphysema N Narcotic Pain Medication for current pro blem Y COPD N Hypothyroidism Y Pneumonia N Injections for current problem N Anesthesia Complications N Deep Vein Thrombosis N Arthritis Y Blood Clot N Cancer Y Stroke N Blood Thinners N High Cholesterol Y Liver Disease N Dialysis N Fibromyalgia N Kidney Disease N Neuro-modulating Drugs for current probl em N Heart Conditions N Black Lung N Migraines N Steroid Pack for current problem Y NSAID Use N Osteoporosis/Osteopenia N Heart Attack (NM) N Mental Illness N Diabetes N Bleeding Disorder N Tuberculosis N Genetic Disorder N AIDS/HIV N Kidney Failure N Chiropractor treatment for current probl em Y Ultrasound Treatment for current problem N Asthma N Epilepsy/Seizures N Sleep Apnea Y Thyroid Disorder Y Physical Therapy Treatments for current problem N Included as Review of Systems Y Pulmonary Embolism N Hypertension Y Gynecological HistoryNo gynecological history recorded. Obstetrics History GPAL:G 0 P 0 0 0 0 Past Encounters Encounter ID Performer Location Encounter Start Date Encounter Closed Date Diagnosis/Indication Diagnosis SNOMED-CT Code Diagnosis ICD10 Code Diagnosis IMO Codes Diagnosis Note [id number] BENJAMIN HASKINS MD [facility]OPED[facility] [address] [place] [address] 07/24/2018 08:58:34 07/26/2018 09:25:49 Lateral epicondylitis 499165504 M77.12 noted good prognosis with conservati ve measures Cubital tu nnel syndrome 22755965 G56.22 we discussed indication for release in situ vs transposit ion ; failed conservati ve, constant sxs [id number] MINESH GOMEZ MD ORTHOPEDI [address] [place] [address] 01/07/2019 09:44:26 01/07/2019 13:41:13 Lateral epicondylitis 470958466 M77.12 Left lateral epicondyli tis (CSI: 01/07/19; 06/2018) Cubital tu nnel syndrome 07526228 G56.22 History and exam consistent with EMG negative cubital tunnel syndrome EMG/NCV (//18) disease was normal of the left upper extremity with no evidence of compressiv e ulnar neuropathy at the elbow or wrist. [id number] MINESH GOMEZ MD ORTHOPEDI [address] [place] [address] 01/21/2019 09:32:33 01/22/2019 15:12:48 Lateral epicondylitis 483017844 M77.12 Left lateral epicondyli tis (CSI: 01/07/19; 06/2018) Cubital tu nnel syndrome 58633787 G56.22 History and exam consistent with EMG negative cubital tunnel syndrome EMG/NCV (05/02/18) disease was normal of the left upper extremity with no evidence of compressiv e ulnar neuropathy at the elbow or wrist. [id number] DONNA RICCI MD NEUROLOGY [facility] [address] [facility] [place] [address] 02/14/2019 09:28:01 02/14/2019 10:52:55 Ulnar neuropathy of left arm [id number] 00314 G56.22 Pain of le ft elbow joint [id number] 3651137 M25.384 [id number] MINESH GOMEZ MD ORTHOPEDI [facility] [address] [place] [address] 02/14/2019 14:20:29 02/17/2019 08:22:24 Lateral epicondylitis 616506133 M77.12 Left lateral epicondyli tis (CSI: 01/07/19; 06/2018) Cubital tu nnel syndrome 03451871 G56.22 EMG/NCV (02/14/19) demonstrat ed mild left ulnar neuropathy at the elbow and very mild left median neuropathy at the wrist. These are new findings compared to previous study in April of last year. EMG/NCV (05/02/18) was normal of the left upper extremity with no evidence of compressiv e ulnar neuropathy at the elbow or wrist. [id number] MINESH GOMEZ MD SURGERY SCHEDULE [address] [place] [address] 02/24/2019 07:12:31 02/24/2019 07:17:10 [id number] KATHRIN INGRAM PA-C [facility]OPEDI [facility] [address] [address] 03/11/2019 10:25:47 03/11/2019 11:57:13 Lateral epicondylitis [id number] M77.12 Left lateral epicondyli tis (CSI: 01/07/19; 06/2018) Cubital tu nnel syndrome 05616298 G56.22 EMG/NCV (02/14/19) demonstrat ed mild left ulnar neuropathy at the elbow and very mild left median neuropathy at the wrist. These are new findings compared to previous study in April of last year. EMG/NCV (05/02/18) was normal of the left upper extremity with no evidence of compressiv e ulnar neuropathy at the elbow or wrist. Carpal taylor alec syndrome 62538203 G56.02 Postoperative care 31056 9007 Z48.89 Doing well s/p Left lateral epicondyli tis debridemen t with tendon repair; Left cubital tunnel release with subcutaneo us ulnar nerve transposit ion; Left endoscopic carpal tunnel release; Excision of left medial elbow osteophyte (DOS: 02/24/19) She will transition therapy from CHT to . Referral provided. She will continue use of protective splint and HEP. She will continue 5 lb lifting/pu lling/push ing restrictio ns. Scar massage discussed. Counsellin g provided at length. [address] Gomez. RTO as scheduled or sooner if needed, advised to call office with any questions/ concerns. [id number] GEOFF SANDERS JR, OTR/L, T PHYSICAL THERAPY / HAND THERAPY [facility] [address] [place] [address] 03/11/2019 11:26:38 03/11/2019 16:25:00 Lateral epicondylitis [id number] M77.12 [id number] GEOFF SANDERS JR, OTR/L, T PHYSICAL THERAPY / HAND THERAPY [facility] [address] [place] [address] 03/17/2019 09:52:44 03/17/2019 11:47:27 Lateral epicondylitis 314747152 M77.12 [id number] MINESH GOMEZ MD [facility]OPED[facility] [address] [place] [address] 04/10/2019 09:34:57 04/10/2019 10:06:17 Postoperative care 341079787 Z48.89 6 weeks s/p Left lateral epicondyli tis debridemen t with tendon repair; Left cubital tunnel release with subcutaneo us ulnar nerve transposit ion; Left endoscopic carpal tunnel release; Excision of left medial elbow osteophyte (DOS: 02/24/19) [id number] PURA BORREGO MD [facility]OPEDI [facility] [address] [place] [address] 07/29/2019 10:26:55 07/29/2019 14:32:27 Tendinitis of right shoulder [id number] 121497 M75.91 Assessment : Right shoulder scapular dyskinesia with deltoid tendinitis Plan: Reverse motion with overhead movement is to fire her upper trapezius. I think her deltoid is being overloaded and is causing this lateral arm pain. Physical therapy has been prescribed to work on scapular stabilizat ion, core strenghten ing, and rotator cuff strengthen ing.If this does not provide her with good relief, we will obtain an MRI of the right shoulder [id number] C ILEANA JANG PA-C [facility] [address] [facility] [place] [address] 03/17/2020 12:03:31 03/17/2020 12:48:23 Knee pain 70408252 M25.569 discussed conservati ve measures to include physical therapy bracing and cortisone steroid injection. Patient elected to proceed with injection. Should pain return would recommend a course of physical therapy. Would prefer MRI to assess soft tissue and [place] of repeated steroid injections due to minimal arthritic changes [id number] ROSALINDA SALAMANCA MD [place] [facility] [address] [address] [place] [address] 04/26/2020 13:24:06 04/26/2020 14:49:24 History of malignant neoplasm of thyroid 410796717 Z85.850 -unknown type Thyroid nodule 057143952 E04.1 -left lobe measures 3.6 x 1 x 1.4 cm with some heterogene ous echogenici ty. 4 mm nodule in the upper pole and mixed hereogerou s nodules measuring 5 x 6 mm in the left lower lobe. Fatigue 31946275 R53.83 Dysphagia 07844545 R13.1 0 Laryngopha ryngeal reflux 176732396 K21.9 -hx [id number] MINESH GOMEZ MD [facility]I [facility] [address] [facility] [place] [address] 05/17/2021 08:08:11 05/17/2021 08:48:43 Postoperative care 742713132 Z48.89 Previously s/p Left lateral epicondyli tis debridemen t with tendon repair; Left cubital tunnel release with subcutaneo us ulnar nerve transposit ion; Left endoscopic carpal tunnel release; Excision of left medial elbow osteophyte (DOS: 02/24/19) Trigger finger 602429161 1 38619 M65.331 Right long trigger finger (CSI: 05/17/21) [id number] C ILEANA JANG PA-C [facility] [address] [address] 07/13/2021 14:44:58 07/13/2021 15:24:12 Osteoarthritis of knee 317310923 M17.9 [id number] MINESH GOMEZ MD [facility]I [facility] [address] [address] 01/05/2022 13:37:44 01/05/2022 14:46:22 Trigger finger 6708060424 58565 M65.331 Right long trigger finger (CSI: 05/17/21) Postoperative care 29105 9007 Z48.89 Previously s/p Left lateral epicondyli tis debridemen t with tendon repair; Left cubital tunnel release with subcutaneo us ulnar nerve transposit ion; Left endoscopic carpal tunnel release; Excision of left medial elbow osteophyte (DOS: 02/24/19) [id number] DALE LITTLEJOHN DO ENDOCRINO [address] [place] [address] 01/16/2022 10:59:42 01/26/2022 11:24:31 Loss of hair 827838152 L65.9 Hypothyroidism 49585194 E03.9 [id number] MINESH GOMEZ MD SURGERY SCHEDULE [address] [place] [address] 01/18/2022 06:35:44 01/18/2022 06:37:14 [id number] SARAH REDDY OTR/L, CHT PHYSICAL THERAPY / HAND THERAPY [facility] [address] [place] [address] 01/23/2022 13:08:55 01/23/2022 14:16:31 Trigger finger of right hand 1420120147 [id number] M65.30 LF TFR [id number] KATHRIN INGRAM PA-C [facility]I [facility] [address] [place] [address] 02/02/2022 13:05:16 02/02/2022 13:31:07 Postoperative care 272304769 Z48.89 Now s/p Right middle trigger finger release (DOS: 01/18/22) Previously s/p Left lateral epicondyli tis debridemen t with tendon repair; Left cubital tunnel release with subcutaneo us ulnar nerve transposit ion; Left endoscopic carpal tunnel release; Excision of left medial elbow osteophyte (DOS: 02/24/19) [id number] Fanny JANG PA-C [facility] [address] [facility] [place] [address] 03/01/2022 10:02:28 03/01/2022 10:40:04 Osteoarthritis of knee 079269503 M17.9 [id number] Fanny JANG PA-C [facility] [address] [address] 09/08/2022 10:21:55 09/08/2022 12:48:45 Osteoarthritis of knee 694924227 M17.9 [id number] Fanny JANG PA-C [facility] [address] [facility] [facility] [place] [address] 01/12/2023 10:13:18 01/12/2023 11:12:26 Osteoarthritis of knee 791782434 M17.9 [id number] Fanny JANG PA-C [facility]I [facility] [address] [place] [address] 07/27/2023 10:30:14 07/27/2023 10:52:38 Osteoarthritis of knee 694693552 M17.9 [id number] MARLY LANDEROS PA-C NEUR[facility] [address] [place] [address] 03/09/2025 09:04:28 03/10/2025 06:30:17 Cervical radiculopathy 53259725 M54.12 [id number] LUISA CARRIZALES MD SURGERY SCHEDULE [address] [place] [address] 03/25/2025 11:57:41 03/27/2025 07:38:21 [id number] LUISA CARRIZALES MD NEUROSURG [facility] [address] [place] [address] 04/20/2025 14:05:48 04/21/2025 04:33:17 Postoperative visit 674946434 Z48.89 [id number] Patient has done very well. I am very happy with her progress. We discussed increasing activity levels. She is voiced understand ing. Will see her again in 3 months time with x-rays. She knows to contact us sooner if any new issues should arise. [id number] LUISA CARRIZALES MD NEUROSURG [facility] [address] [place] [address] 07/27/2025 10:40:51 07/28/2025 04:32:01 Cervical spondylosis 868587014 M47.812 [id number] I discussed the radiograph ic findings with her. Were going to go ahead and order a nerve conduction study of her right upper extremity to rule out carpal tunnel syndrome. I am also going to fill gabapentin for her 300 mg 1 tablet to take at night. I have counseled her on how to increase that dose. She is voiced understand ing. She will call us after the nerve conduction study is available to us. Health Concerns Section Related Observation LastModified by Organization Detai ls LastModified Time None Recorded Concern Status LastModified by Organization Details LastModified Time None Recorded Advance Directives Directive None Recorded Payers Insurance Date Sequence Insurance Name Policy Number Policy La Covered Member ID La Member ID Guarantor Name 01/05/2022 2 [employer] ([facility]) [id number] Adalberto Ambriz [id number] Regina Ambriz 03/14/2025 2 [place] Regina Ambriz [id number] Regina Ambriz 01/10/2019 1 *SELF PAY* Veliz sherif Escobedo [place] 10/15/2022 PAYMENT PLAN Regina Ambriz 09/05/2025 1 [place]AC[place] H[place]) [facility] Regina Ambriz [id number] Regina Ambriz 03/14/2025 1 [place]) [id number] Regina Ambriz [id number] Regina Escobedo [place] 03/14/2025 1 [place]MEDIC[place] REPLACEMENT REGIONAL PPO) [id number] Regina Moraleigh [id number] Regina Ambriz Notes Date Note Type Note Provider Name and Address Organization Details Recorded Time 03/09/2025 text/html Ms. Yang is status post a C3-[address] Navarro in about 1999 or 2000. She had improvement of her pain following the surgery. About 2 to 3 months ago she began having pain in the right side of her neck that radiates into her right shoulder blade and down the right upper extremity into her middle 3 fingers. She describes it as a stabbing burning pain. She has been to a chiropractor for approximately 9 visits without improvement. She began taking gabapentin 300 mg twice daily without improvement. She does get some improvement with applying ice. She gets minimal improvement with a TENS unit. She denies any left arm symptoms. 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 She denies balance issues. MRALY LANDEROS PA-C [address], [place], [address], [facility] 03/18/2025 12:24:39 04/20/2025 text/html ROS as noted in the HPI Patient is a very pleasant 54-year-old woman here today for postoperative follow-up after her cervical fusion. She had this performed on 24 March. She is done very well. She states she continues to have a little bit of difficulty swallowing but it has improved considerably. She has some persistent numbness in her right hand and forearm however the pain that she had preoperatively has resolved. She is very happy with her progress. Imaging: Impression reviewed her x-rays which demonstrate intact hardware good alignment LUISA CARRIZALES MD [address] [place] [address] [place], [address], [facility] 04/20/2025 15:53:13 07/27/2025 text/html ROS as noted in the HPI Patient is a very pleasant 54-year-old woman here today for follow-up after her C5-6 ACDF on 24 March. She is done very well. She does have decreased range of motion. She starting physical therapy tomorrow. She is also having isolated right hand numbness mainly at night. She has had carpal tunnel on the left treated previously. She states it feels very similar to this. No other neurologic complaints. Imaging: Impression reviewed her x-rays demonstrate intact hardware good alignment LUISA CARRIZALES MD [facility] [place], [address], [facility] 07/27/2025 11:32:02 OBGyn Episode No OBEpisode recorded.
--- OUTSIDE RECORDS SUMMARY | 2025-10-20 10:25 | XMS_ITS | Clinical Summary ---
Author Organization [facility] Address [address] [place] [address] Care Team Providers Care Humane Agent Name Role Phone Julio Cesar Donaldson APRN Primary Care Provider + [phone] Allergies Active Allergy Reactions Criticality Noted Date Comments Cefaclor Hives,Rash High 11/06/2007 Ciprofloxacin Hives,Rash High 11/06/2007 Duloxetine Hcl Other (See Comments),Rash High 2013 Medications omeprazole (priLOSEC) 40 MG capsule Take 1 capsule by mouth 2 (two) times a day. 60 capsule 11 06/23/2020 Active aspirin 81 MG EC tablet Take 1 tablet by mouth Daily. Active furosemide (LASIX) 40 MG tablet Take 1 tablet by mouth Daily. Active levothyroxine (SYNTHROID, LEVOTHROID) 100 MCG tablet Take by mouth Every Morning. Active metoprolol succinate XL (TOPROL-XL) 25 MG 24 hr tablet Take 1 tablet by mouth Daily. Active spironolactone (ALDACTONE) 25 MG tablet Take 1 tablet by mouth Daily. Active albuterol sulfate HFA 108 (90 Base) MCG/ACT inhaler Inhale 2 puffs Every 4 (Four) Hours As Needed for Wheezing. Active fluticasone (FLOVENT HFA) 110 MCG/ACT inhaler Inhale 1 puff 2 (Two) Times a Day. Active loratadine (Claritin) 10 MG tablet Take 1 tablet by mouth Daily. Active Ergocalciferol (Vitamin D2) 10 MCG (400 UNIT) tablet Take 2 tablets by mouth 3 (Three) Times a Week. Active Active Problems Problem Noted Date Diagnosed Date Postoperative hypothyroidism 01/21/2025 Nephrolithiasis 01/21/2025 Vitamin D deficiency 01/21/2025 Essential hypertension 01/21/2025 Seasonal allergies 01/21/2025 GERD (gastroesophageal reflux disease) Family History Medical History Relation Name Comments Thyroid disease Maternal Aunt Kidney cancer Mother Thyroid disease Mother Breast cancer Paternal Grandmother Thyroid disease Sister Relation Name Status Comments Maternal Aunt Alive Mother Paternal Grandmother Alive Sister Social History Tobacco Use Types Packs/Day Years Used Date Smoking Tobacco: Former Cigarettes 1 14 1 985 - 1998 Passive Smoke Exposure: Past Smokeless Tobacco: Never Tobacco Cessation:Counseling Given: Not Answered Alcohol Use Standard Drinks/Week Comments Not Currently 0 (1 standard drink = 0.6 oz pur e alcohol) Comments Unknown Sex and Gender Information Value Date Recorded Sex Assigned at Not on file Legal Sex Female 1:29 PM EDT Gender Identity Not on file Sexual Orientation Not on file Last Filed Vital Signs Vital Sign Reading Time Taken Comments Blood Pressure 118/70 01/21/2025 12:51 PM EDT Pulse 64 01/21/2025 12:51 PM EDT Temperature - - Respiratory Rate - - Oxygen Saturation 98% 01/21/2025 12:51 PM EDT Inhaled Oxygen Concentration - - Weight 93 kg (205 lb) 01/21/2025 12:51 PM EDT Height 162.6 cm (5' 4 ) 01/21/2025 12:51 PM EDT Body Mass Index 35.19 01/21/2025 12:51 PM EDT Plan of Treatment Health Maintenance Due Date Last Done Comments Annual Gynecologic Pelvic and Breast Exam 1970 TDAP/TD VACCINES (1 - Tdap) 1989 MAMMOGRAM 2010 COLOGUARD 2015 COLON CANCER SCREENING 5 YEA R SIGMOIDOSCOPY [address] COLONOGRAPHY 2015 FECAL OCCULT BLOOD TEST 2015 FIT Testing (1 year) 2015 ANNUAL WELLNESS VISIT 05/03/2020 HEPATITIS C SCREENING 05/03/2020 Pneumococcal Vaccine 50+ (1 of 1 - PCV) 2020 ZOSTER VACCINE (1 of 2) 2020 INFLUENZA VACCINE 06/05/2025 COLONOSCOPY 08/09/2026 08/09/2021, 07/27/2020 COLORECTAL CANCER SCREENING 08/09/2026 Procedures Procedure Name Priority Date/Time Associated Diagnosis Comments SCANNED - COLONOSCOPY 07/27/2020 from Last 3 Months or Most Recently Relevant to Health Maintenance Results * SCANNED - COLONOSCOPY (07/27/2020) Sidney Contreras MD CHART REVIEW TABS Veena l Result from Last 3 Months or Most Recently Relevant to Health Maintenance Insurance ANTHEM MEDICARE ADVANTAGE HMO Care Teams Humane Agent Relationship Specialty Start Date End Date Julio Cesar Donaldson APRN [address] [place] [address] [place] [id number] PCP - General Family Medicine 01/22/25
--- OUTSIDE RECORDS SUMMARY | 2025-10-20 10:25 | XMS_ITS | Referral Summary ---
Author Organization [employer] ([place], [place], [place], [place], [place]) Address [address] [place] [address] Care Team Providers Care Nursery Teacher Name Role Phone Julio Cesar Donaldson Primary Care Provider [phone] Allergies Active Allergy Reactions Criticality Noted Date Comments Cefaclor Diarrhea,Nausea And Vomiting,Rash Low 03/24/2025 Ciprofloxacin Diarrhea,Nausea And Vomiting,Rash Low 03/24/2025 Duloxetine Other (See Comments) 03/24/2025 Temporary paralysis Medications albuterol 90 mcg/actuation inhaler Inhale 2 puffs by mouth every 6 (six) hours as needed. Active ergocalciferol, vitamin D2, 10 mcg (400 unit) tab Take 2 tablets by mouth daily. Active furosemide (LASIX) 40 MG tablet Take 1 tablet (40 mg total) by mouth daily. Active levothyroxine (SYNTHROID) 100 MCG tablet Take 1 tablet (100 mcg total) by mouth daily. Active meclizine (ANTIVERT) 12.5 mg tablet Take 1 tablet (12.5 mg total) by mouth 2 (two) times daily as needed for nausea. Active metoprolol succinate (TOPROL-XL) 25 MG 24 hr tablet Take 1 tablet (25 mg total) by mouth daily. Active spironolactone (ALDACTONE) 25 MG tablet Take 1 tablet (25 mg total) by mouth daily. Active gabapentin (NEURONTIN) 100 MG capsule Take 3 capsules (300 mg total) by mouth 2 (two) times daily. 02/17/2025 Active loratadine (CLARITIN) 10 mg tablet Take 1 tablet (10 mg total) by mouth daily. Active aspirin 81 MG EC tablet Take 1 tablet (81 mg total) by mouth daily Restart 7 days after surgery. 03/25/2025 Active docusate sodium (COLACE) 100 MG capsule Take 1 capsule (100 mg total) by mouth 2 (two) times daily. 20 capsule 03/25/2025 Active Active Problems Problem Noted Date Diagnosed Date Cervical spondylosis 03/24/2025 Social History Tobacco Use Types Packs/Day Years Used Date Smoking Tobacco: Former Cigarettes 2 6 2 020 - 1986 Smokeless Tobacco: Current Tobacco Cessation:Ready to Q uit: Not Asked Comments:Current use of nicotine vape Alcohol Use Standard Drinks/Week Comments Never 0 (1 standard drink = 0.6 oz pur e alcohol) Comments Unknown Sex and Gender Information Value Date Recorded Sex Assigned at Not on file Legal Sex Female 5:17 PM CDT Gender Identity Not on file Sexual Orientation Not on file Last Filed Vital Signs Vital Sign Reading Time Taken Comments Blood Pressure 133/81 03/25/2025 4:05 AM EDT Pulse 81 03/25/2025 4:05 AM EDT Temperature 36.3 C (97.3 F) 03/25/2025 4:05 AM EDT Respiratory Rate 16 03/25/2025 9:35 AM EDT Oxygen Saturation 93% 03/25/2025 4:05 AM EDT Inhaled Oxygen Concentration - - Weight 95 kg (209 lb 8 oz) 03/24/2025 8:18 AM ED T Height 161.3 cm (5' 3.5 ) 03/24/2025 8:18 AM EDT Body Mass Index 36.53 03/24/2025 8:18 AM EDT Plan of Treatment Not on file Medical Devices Implanted Type Area Steam Fitter Device Identifier Shelf Expiration Date Model / Serial / Lot Bone Vivigen Formable Sm [id number] - [id number] Implanted:Qty : 1 on 03/24/2025 by Edda Carrizales MD at [facility] IMPLANTS N/A: Spine Cervical LIFENET:LIFENET TRANSPLANT SRV 11/21/2025 [id number] / Cage Stalif 12x5.5mm 6d 16ml [id number] - [id number] Implanted:Qty : 3 on 03/24/2025 by Edda Carrizales MD at [facility] IMPLANTS N/A: Spine Cervical [employer] 06/02/2027 [id number] / / [id number] Scr Abo Long 4x16mm [id number] - [id number] Implanted:Qty : 9 on 03/24/2025 by Edda Carrizales MD at [facility] IMPLANTS N/A: Spine Cervical [employer] 11/15/2027 [id number] / / [id number] Insurance [facility] ACCESS HMO MAP Advance Directives For more information, please contact: [phone] * Full Code (Latest Code Status on File) Date Activated Date Inactivated Comments 03/24/2025 10:45 AM 03/25/2025 3:36 PM Care Teams Nursery Teacher Relationship Specialty Start Date End Date Julio Cesar Donaldson [address] [place] [address] PCP - General 03/24/25
--- OUTSIDE RECORDS SUMMARY | 2025-10-20 10:25 | XMS_ITS | Continuity of Care Document ---
Author Organization [facility], NEUROSURGERY [address] [place] [address] Care Team Providers Care Photolith Operator Name Role Phone JANES DUTTON Primary Care Provider [phone] Assessment No assessment recorded. Plan of Treatment Reminders Order Date Submit Date Provider Last Modified By Organization Details Last Modified Time Details Appointments None recorded. Lab None recorded. Referral None recorded. Procedures None recorded. Surgeries None recorded. Imaging None recorded. Medication Orders gabapentin 300 mg capsule 2024 025 [facility], [address], [address], 5 11:31:57 Patient TargetsNo targets recorded. Patient InstructionsNo instructions recorded. Reason for Referral None Reported. Results Created Date Observation Date Name Description Value Unit Range Abnormal Flag Note LastModifiedBy Organization Detail LastModifiedTime 07/31/2007/27/2025 XR, cervi tay spine , 2 or 3 view [facility] [address] [place] [address] Patien t Name: REGINA Escobedo MARYSTIVEN Howard t : 1969 Patien t Orderi ng Provid er: LUISA PENNINGTON Y EXAM DATE: 2024 EXAM: XR CERVIC AL AP/LAT CLINIC AL INFORM ATION: Follow -up of multil evel anteri or fusion IMAGES PROVID ED: AP, latera l, open mouth and submen brent views of the cervic al spine COMPAR DEMETRIUS: Cervic al spine FINDIN GS: There is previo us anteri [...] Interp reted By: Lidia campos MD Electr onical ly Signed By: Lidia campos MD on 5:50 AM [facility] Radiology [address] [place], [address], 08/26/2025 15:20:19 Result Notes None recorded. 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 Procedures Surgical History Date Name Laterality Status Provider Name and Address Organization Details Recorded Time 023 Injection - Joint/Bursa, Major completed Pura Fitzpatrick [facility] 07/24/2023 14:21:36 023 Injection - Joint/Bursa, Major completed Cortlyn Fitzpatrick [facility] 01/04/2023 13:36:52 022 Injection - Joint/Bursa, Major completed Reta Whitehead [facility] 09/05/2022 12:51:38 022 Injection - Joint/Bursa, Major completed Reta Whitehead [facility] 03/01/2022 09:27:02 022 OT Evaluation - Moderate complexity completed SARAH REDDY, OTR/L, CHT [address] [place], [address], [facility] 01/23/2022 12:43:48 022 Trigger Finger Release - Daniela completed MINESH GOMEZ MD [address] [place], [address], [facility] 01/18/2022 08:09:53 021 Stent placemt retro carotid completed Lila Garcia [facility] 01/16/2022 11:15:22 021 Injection - Joint/Bursa, Major completed Natalie Chand [facility] 07/13/2021 15:08:08 021 Injection - Trigger Finger, Ortho completed MINESH GOMEZ MD [address] [place], [address], [facility] 05/17/2021 08:47:35 020 Laryngoscopy Flex completed Terry Mak [facility] 04/26/2020 14:19:46 020 Injection - Joint/Bursa, Major completed Fanny JANG PA-C [address] [place], [address], [facility] 03/17/2020 12:50:05 019 OT Therapeutic Exercise completed GEOFF SANDERS JR, OTR/L, CHT [address] [place], [address], [facility] 03/17/2019 10:46:31 019 Orthotic Management; Initial Encounter completed GEOFF SANDERS JR, OTR/L, CHT [address] [place], [address], [facility] 03/11/2019 15:19:37 019 OT Evaluation - Low complexity completed GEOFF SANDERS JR, OTR/L, CHT [address] [place], [place], [address] [place] [address] 03/11/2019 15:19:12 019 Op Note completed MINESH GOMEZ MD [address] [place] [address], [address] [place] [address] 02/24/2019 11:12:48 019 Electromyography (EMG) with Nerve Conduction Study (NCV) completed Sulma Madrid (Nicky) [facility] 02/14/2019 10:48:58 Injection - Tendon Sheath/Ligament completed MINESH GOMEZ MD [address] [place] [address], [address] [place] [address] 01/08/2019 13:31:54 Cholecystectomy completed Terry Dent [facility] 04/26/2020 14:21:14 Imaging Results None recorded. Procedure Notes None recorded. Medical Equipment None Reported. Allergies Allergen ID Allergen Name Allergen Category Reaction Reaction Severity Criticality Documentation Date Start Date Code Code System Note Provider Name and Address Organization Details Recorded Time 528420 Cipro medicatio n hives Not available Not available 09/28/20162007 3 RxNorm React ion: HIVES ; Comme nt: Creat ed By: Bronson huff; Creat ed Date: 10:33 :00 AM; Not Available [facility] 6 10:41:13 [id number] Ceclor medicatio n hives Not available Not available 09/29/2016200763 5 RxNorm React ion: HIVES ; Comme nt: Creat ed By: Bronson huff; Creat ed Date: 10:32 :39 AM; Not Available [facility] 6 03:28:47 839404 Cymbalta medicatio n Not available Not available Not available 09/29/20162013 01057 4 RxNorm Comme nt: Creat ed By: Alycia vicente Romulo elizalde;Cr eated Date: 08/25 9:53: 05 AM; Not Available [facility] 6 04:14:49 [id number] cefaclor medicatio n Not available Not available low 10/16/20252024 2176 RxNorm Not Available [employer] - prod 12:54:24 383020 ciproflox acin medicatio n Not available Not available low 10/16/20252024 2551 RxNorm Not Available [employer] - prod 12:54:24 [id number] duloxetin e medicatio n Not available Not available Not available 10/16/20252024 91801 RxNorm Tempo rary paral ysis Not Available [place] [employer] - prod 12:54:24 Medications Name [...] Details Last Updated DateTime 07/27/2025 160.02 cm [facility] 07/27/2025 11:14:34 Social History Question Answer Notes LastModified by Organizat ion Details LastModified Time Tobacco Smoking Status [facility] 04/26/2020 13:30:15 What Is Your Level Of Caffeine Consumption? Moderate Coffee, Tea, Mountain Dew [email or web address] Information not available 01/07/2019 Which Of Your Hands Is Dominant? Right [email or web address] Information not available 01/07/2019 Marital Status [email or web address] Information not available 01/07/2019 What Was The Date Of Your Most Recent Tobacco Screening? 01/16/2022 [email or web address] Information not available 01/16/2022 How Much Tobacco Do You Smoke? 2 PPD [email or web address] Information not available 04/26/2020 How Many Years Have You Smoked Tobacco? 30 [email or web address] Information not available 04/26/2020 Sex: Female Functional Status Question Answer Note LastModified by Organizat ion Details LastModified Time Do you use any illicit or recreational drugs? No [email or web address] Information not available 01/07/2019 What is your level of alcohol consumption? None [email or web address] Information not available 01/07/2019 Are you currently employed? No [email or web address] Information not available 01/07/2019 Mental Status None recorded. Family History Relationship Description Onset Age of this Age Resolved Age Notes LastModified by Organization Details LastModified Time Mother Disorder of thyroid gland [email or web address] Not available 04/26 13:29:40 Mother Heart disease [email or web address] Not available 03/09 09:05:43 Mother Kidney disease [email or web address] Not available 03/09 09:05:43 Sister Disorder of thyroid gland 40 [email or web address] Not available 03/09 09:05:43 Medical History Condition Response TENS Unit for current problem Y Massage Therapy for current problem Y Traction for current problem N Gout N Other N Thyroid Disease N Hyperthyroidism N Emphysema N Narcotic Pain Medication for current pro blem Y COPD N Hypothyroidism Y Pneumonia N Injections for current problem N Anesthesia Complications N Deep Vein Thrombosis N Arthritis Y Blood Clot N Cancer Y Stroke N Blood Thinners N High Cholesterol Y Liver Disease N Fibromyalgia N Dialysis N Kidney Disease N Neuro-modulating Drugs for current probl em N Heart Conditions N Black Lung N Migraines N Steroid Pack for current problem Y NSAID Use N Osteoporosis/Osteopenia N Heart Attack (ID) N Mental Illness N Diabetes N Bleeding Disorder N Tuberculosis N Genetic Disorder N AIDS/HIV N Chiropractor treatment for current probl em Y Kidney Failure N Asthma N Ultrasound Treatment for current problem N Epilepsy/Seizures N Sleep Apnea Y Thyroid [...] ICD10 Code Diagnosis IMO Codes Diagnosis Note [id number] LUISA NARAYAN MD NEUROS[facility] [address] [place] [address] 07/27/2025 10:40:51 07/28/2025 04:32:01 Cervical spondylosis 087345917 M47.812 [id number] I discussed the radiograph ic findings with [...] by Organization Details LastModified Time None Recorded Payers Encounter Date Sequence Insurance Name Policy Number Policy La Covered Member ID La Member ID Guarantor Name 07/27/2025 1 [place]MEDICARE REPLACEMENT HMO) [id number] Regina Ambriz [id number] Regina Ambriz Notes Date Note Type Note Provider Name and Address Organization Details Recorded Time 07/27/2025 text/html ROS as noted in the [...] x-rays demonstrate intact hardware good alignment LUISA NARAYAN MD [address] [place] [address], [address], [facility] 07/27/2025 11:32:02 OBGyn Episode No OBEpisode recorded.
--- OUTSIDE RECORDS SUMMARY | 2025-10-20 10:25 | XMS_ITS | Clinical Summary ---
Author Organization [employer] ([place], [place], [place], [place], [place]) Address [address] [place] [address] Care Team Providers Care Hoisting Engineer Pile Driving Name Role Phone Julio Cesar Donaldson Primary Care Provider Allergies Active Allergy Reactions Criticality Noted Date [...] 03/24/2025 8:18 AM EDT Plan of Treatment Health Maintenance Due Date Last Done Comments CT Colonography 1970 Colonoscopy 1970 Colorectal Cancer Screening 1970 FOBT/FIT 1970 Fit-DNA (Cologuard) 1970 Sigmoidoscopy 1970 Depression Screening (12+) 1982 Tobacco Cessation Counseling and Screening (12+) 10/14 HIV Screening 1985 Hepatitis C Screening 1988 DTAP/TDAP/TD VACCINES (1 - Tdap) 1989 Pap Smear 1991 Breast Cancer Screening 2010 Lipid Panel 2015 Pneumococcal 50+ years (1 of 1 - PCV) 2020 Shingles Vaccine (Zoster) (1 of 2) 2020 Medicare IPPE (Welcome to Medicare) [id number] 11/05/2024 COVID-19 VACCINE (1 - season) 2025 Influenza Vaccine (#1) 2025 Medical Devices Implanted Type Area Sap Bw Architect Device Identifier Shelf Expiration Date Model / Serial / Lot Bone Vivigen Formable [id number] - [id number] Implanted:Qty : 1 on 03/24/2025 by Edda Carrizales MD at [facility] IMPLANTS N/A: Spine Cervical LIFENET:LIFENET TRANSPLANT SRV 11/21/2025 [id number] / Cage Stalif 12x5.5mm 6d 16ml [id number] - [id number] Implanted:Qty : 3 on 03/24/2025 by Edda Carrizales MD at [facility] IMPLANTS N/A: Spine Cervical [employer] 06/02/2027 [id number] / / [id number] Scr Abo Long 4x16mm [id number] - [id number] Implanted:Qty : 9 on 03/24/2025 by Edda Carrizales MD at [facility] IMPLANTS N/A: Spine Cervical [employer] 11/15/2027 [id number] / / [id number] Insurance [facility] ACCESS HMO MAP Advance Directives For more information, please contact: [phone] * Full Code (Latest Code Status on File) Date Activated Date Inactivated Comments 03/24/2025 10:45 AM 03/25/2025 3:36 PM Care Teams Hoisting Engineer Pile Driving Relationship Specialty Start Date End Date Julio Cesar Donaldson [address] [place] [address] [place] [address] PCP - General 03/24/25
== END 2025-10-20 23:59 | disposition home or self-care (01) ==
LOC: RAD 10:00
PROVIDERS: PCP Nurse Practitioner Family; Visit Provider Nurse Practitioner
DX: M19.072 Primary osteoarthritis, left ankle and foot (principal); M19.071 Primary osteoarthritis, right ankle and foot
CPT/HCPCS: 73630

== ENCOUNTER 2025-11-04 14:20 | Outpatient (CLI) | payer MEDICARE, SELFPAY ==
--- OUTSIDE RECORDS SUMMARY | 2025-01-21 12:33 | XMS_ITS | Encounter Summary ---
[facility] [address] [place] [address] Care Team Providers Care Felting Machine Operator Helper Name Role Phone Emmy Bartlett MD, Gareth Primary Care Provider + Reason for Visit * Diagnostic Imaging (Routine) - Closed Specialty Diagnoses / Procedures Referred By Eula suarez Referred To Contact Radiology Diagnoses Multiple thyroid nodules Procedures US Thyroid Ayaka Cruz, DO [email or web address] [place] [address] Phone: tel: fax: Referral ID Status Reason Start Date Expiration Date Visits Re quested Visits Authorized [id number] Closed 01/21/2025 04/22/2026 1 1 Encounter Details Date Type Department Care Team (Late st Contact Info) Description 01/21/2025 1:33 PM EDT Hospital Encounter [facility] [address] [place] [address] Social History Tobacco Use Types [...] on filedocumented in this encounter Care Teams Felting Machine Operator Helper Relationship Specialty Start Date End Date Gareth Booth MD [address] [place] [address] PCP - General Otolaryngology 04/28/20 01/21/25 documented as of this encounter
--- NOTE | 2025-11-04 14:22 | MM_ITS ---
PROCEDURE INFORMATION: Exam: MG Bilateral Screening 3D Mammography Exam date and time: 11/04/2025 2:26 PM Age: 55 years old Clinical indication: Screening examination TECHNIQUE: Imaging protocol: Bilateral Screening tomosynthesis and 2D mammography including computer-aided detection (CAD) when performed. COMPARISON: 1. MG MM DIG SCREENING MAMM BI W/CAD 10/30/2024 1:06 PM 2. MG MM DIG SCREENING MAMM BI W/CAD 10/24/2023 10:24 AM FINDINGS: MAMMOGRAPHY: Breast composition: There are scattered areas of fibroglandular density. Mass: No suspicious masses. Architectural distortion: None. Calcifications: No suspicious calcifications. Asymmetric density: None. Skin thickening: None. Axillary adenopathy: None. IMPRESSION: No mammographic evidence of malignancy. Annual screening is recommended unless otherwise clinically indicated. ASSESSMENT: BI-RADS Category 1: Negative.
--- OUTSIDE RECORDS SUMMARY | 2025-11-04 14:22 | XMS_ITS | Clinical Summary ---
Author Organization [facility] Address [address] [place] [address] Care Team Providers Care Pit Furnace Melter Name Role Phone Julio Cesar Donaldson APRN Primary Care Provider + [phone] Allergies Active Allergy Reactions Criticality Noted Date [...] Insurance [employer] MEDICARE ADVANTAGE HMO Care Teams Pit Furnace Melter Relationship Specialty Start Date End Date Julio Cesar Donaldson APRN [address] [place] [address] [place] [address] PCP - General Family Medicine 01/22/25
--- OUTSIDE RECORDS SUMMARY | 2025-11-04 14:22 | XMS_ITS | Data Portability ---
Author Organization [facility] C[place] [facility]S [place] [facility] Address [address] [facility] [address] [place] [address] Care Team Providers Care Children'S Minister Name Role Phone JANES DUTTON Primary Care Provider [phone] Assessment Encounter Date Assessment Date Assessment LastModified by Organization Details LastModified Time 03/09/2025 03/09/2025 MRI cervical spine. 02/27/2025. [facility] Report only. Report indicates severe bilateral C5-6 [...] Orders gabapentin 300 mg capsule 2024 025 [facility] 591, [address], [address], 11:31:57 Patient TargetsNo targets recorded. Patient InstructionsNo [...] tay spine , 4 or 5 view [facility] [address] [place] [address] Lee erick Name: REGINA suarez : 1969 [...] Ulises Alonzo MD on 03/09/20 11:30 AM [facility] Radiology [address] [place], [address], 03/18/2025 12:39:42 03/13/2003/13/2025 CT, cervi tay spine , w/o contr ast [facility] [address] [place] [address] [phone] Patien t Name: REGINA CARIAS Y Patien [...] fied. The visual ized spinal cord and industrial relations specialist ior fossa of the brain are normal [...] uribe MD on 03/13/20 25 5:41 PM [facility] Radiology [facility] [address] [facility], [place], [address], 03/18/2025 12:39:43 04/20/20 25 04/20/2025 XR, cervi tay spine , 2 or 3 view [facility] [address] [facility] [place] [address] [phone] Patiarnulfo t Name: REGINA suarez : 1969 [...] Ulises Alonzo MD on 025 2:38 PM [email or web address] [facility] [address] [place], [address], 05/18/2025 09:04:57 07/31/20 25 07/27/2025 XR, cervi tay spine , 2 or 3 view [facility] [address] [facility] [place] [address] [phone] Patiarnulfo t Name: REGINA suarez : 1969 Lee suarez Orderi ng Provid er: [facility] Y EXAM DATE: 2024 EXAM: XR CERVIC [...] By: Lidia campos MD on 5:50 AM [facility] Radiology [address] [place], [address], 08/26/2025 15:20:19 Result Notes Documentation Provider Name and Address Organization Details Recorded Time Xr, Cervical Spine, 4 Or 5 View : [facility] [address] [place] [id number] Patient Name: RGEINA AMBRIZ Patient : 1970 Patient Ordering Provider: [...] By: Ulises Alonzo MD A CARRIZALES MD [address] [place] [address], [phone], [facility] 03/18/2025 12:39:42 Ct, Cervical Spine, W/o Contrast : [facility] [address] [place] [address] Patient Name: REGINA AMBRIZ Patient : 1970 [...] By: Aditya Herring MD A CARRIZALES MD [address] [place] [address], [phone], [facility] 03/18/2025 12:39:43 Xr, Cervical Spine, 2 Or 3 View : [address] [address] Patient Name: REGINA AMBRIZ Patient : 1970 [...] By: Ulises Alonzo MD Michael Williserson Fletcher [facility] 05/18/2025 09:04:57 Xr, Cervical Spine, 2 Or 3 View : [address] [address] Patient Name: REGINA AMBRIZ Patient : 1970 [...] By: Lidia Camejo MD Jon Harris prema [facility] 08/14/2025 09:19:18 Problems Name Problem SNOMED Code Status Onset Date Resolution Date Notes Provider Name and Address Organization Details Recorded Time 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 507874237 Active 2014 From Automated Load;Provi nelia: Brea Jang;Stat us: Active Not Available [facility] 6 05:28:50 Insomnia 916560702 Active 2014 From Automated Load;Provi nelia: Brea Jang;Stat us: Active Not Available [facility] 6 05:28:50 Cervico-o ccipital neuralgia 00121733 Active 2014 From Automated Load;Provi nelia: Brea Jang;Stat us: Active Not Available [facility] 6 05:28:50 Finding of sensation by site Active 2014 From Automated Load;Provi nelia: Brea Jang;Stat us: Active Not Available [facility] 6 05:28:50 Problem Notes None recorded. Procedures Surgical History Date Name Laterality Status Provider Name and Address Organization Details Recorded Time 023 Injection - Joint/Bursa, Major completed Pura Fitzpatrick [facility] 07/24/2023 14:21:36 023 Injection - Joint/Bursa, Major arvin Fitzpatrick [facility] 01/04/2023 13:36:52 022 Injection - Joint/Bursa, Major completed Reta Whitehead [place] [facility] 09/05/2022 12:51:38 022 Injection - Joint/Bursa, Major completed [facility] 03/01/2022 09:27:02 022 OT Evaluation - Moderate complexity completed SARAH REDDY, SUDHAR/L, CHT [address] [place], [address], [facility] 01/23/2022 12:43:48 022 Trigger Finger Release - Daniela completed MINESH GOMEZ MD [address] [place], [address], [facility] 01/18/2022 08:09:53 021 Stent placemt retro carotid completed Lila Radha [facility] 01/16/2022 11:15:22 021 Injection - Joint/Bursa, Major completed Natalie Chand [facility] 07/13/2021 15:08:08 021 Injection - Trigger Finger, Ortho completed MINESH GOMEZ MD [address] [place], [address], [facility] 05/17/2021 08:47:35 020 Laryngoscopy Flex completed Terry Mak [facility] 04/26/2020 14:19:46 020 Injection - Joint/Bursa, Major completed Fanny JANG PA-C [address] [place], [address], [facility] 03/17/2020 12:50:05 019 OT Therapeutic Exercise completed GEOFF SANDERS JR, OTR/L, CHT [address] [place], [address], [facility] 03/17/2019 10:46:31 019 Orthotic Management; Initial Encounter completed GEOFF SANDERS JR, OTR/L, CHT [address] [place], [address], [facility] 03/11/2019 15:19:37 019 OT Evaluation - Low complexity completed GEOFF SANDERS JR, OTR/L, CHT [address] [place], [address], [facility] 03/11/2019 15:19:12 019 Op Note completed MINESH GOMEZ MD [address] [place], [address], [facility] 02/24/2019 11:12:48 019 Electromyography (EMG) with Nerve Conduction Study (NCV) completed Sulma Madrid (Nicky) [facility] 02/14/2019 10:48:58 019 Injection - Tendon Sheath/Ligament completed MINESH GOMEZ MD [address] [place], [address], [place] [facility] 01/08/2019 13:31:54 Cholecystectomy completed Terry Rivera - [facility] 04/26/2020 14:21:14 Imaging Results None recorded. Procedure Notes None recorded. Medical Equipment None Reported. Allergies Allergen ID Allergen Name Allergen Category Reaction Reaction Severity Criticality Documentation Date Start Date Code Code System Note Provider Name and Address Organization Details Recorded Time 771524 Cipro medicatio n hives Not available Not available 09/28/2016200756 3 RxNorm React ion: HIVES ; Comme nt: Creat ed By: Bronson huff; Creat ed Date: 008 10:33 :00 AM; Not Available [facility] 6 10:41:13 [id number] Ceclor medicatio n hives Not available Not available 09/29/2016200763 5 RxNorm React ion: HIVES ; Comme nt: Creat ed By: Bronson uhff; Creat ed Date: 008 10:32 :39 AM; Not Available [facility] 6 03:28:47 939348 Cymbalta medicatio n Not available Not available Not available 09/29/20162013 69038 4 RxNorm Comme nt: Creat ed By: Alycia elizalde;Cr eated Date: 08/25 9:53: 05 AM; Not Available [facility] 6 04:14:49 579070 cefaclor medicatio n Not available Not available low 10/16/20252024 2176 RxNorm Not Available arielle - External Data Service - prod 5 12:54:24 162980 ciproflox acin medicatio n Not available Not available low 10/16/20252024 2551 RxNorm Not Available arielle - External Data Service - prod 5 12:54:24 387522 duloxetin e medicatio n Not available Not available Not available 10/16/20252024 43925 RxNorm Tempo rary paral ysis Not Available [...] Last Updated DateTime 03/09/2025 160.02 cm [facility]cita [facility] 03/09/2025 09:56:54 Date Recorded Body height Provider Name an d Address Organization Details Last Updated DateTime 04/20/2025 160.02 cm [facility]orecita [facility] 04/20/2025 14:51:57 Date Recorded Body height Pain severity - 0-10 verbal numeric rating [Score] - Reported Provider Name and Address Organization Details Last Updated DateTime 07/27/2023 160.02 cm 5 Reta PICKETT [facility] 07/27/2023 10:34:30 Date Recorded Body height Provider Name an d Address Organization Details Last Updated DateTime 07/27/2025 160.02 cm Florecita Chen [facility] 07/27/2025 11:14:34 Social History Question Answer Notes LastModified by Organizat [employer] Details LastModified Time Tobacco Smoking Status Former Smoker Liz lloyd, [facility] 04/26/2020 13:30:15 What Is Your Level Of Caffeine Consumption? Moderate Coffee, Tea, Mountain Dew [email or web address] Information not available 01/07/2019 Which Of Your Hands Is Dominant? Right Information not available 01/07/2019 Marital Status [email or web address] Information not available 01/07/2019 What Was The Date Of Your Most Recent Tobacco Screening? 01/16/2022 [email or web address] Information not available 01/16/2022 How Much Tobacco Do You Smoke? 2 PPD [email or web address] Information not available 04/26/2020 How Many Years Have You Smoked Tobacco? 30 [email or web address] Information not available 04/26/2020 Sex: Female Functional Status Question Answer Note LastModified by Organizat ion Details LastModified Time Do you use any illicit or recreational drugs? No [email or web address] Information not available 01/07/2019 What is your level of alcohol consumption? None Information not available 01/07/2019 Are you currently employed? No [email or web address] Information not available 01/07/2019 Mental Status None recorded. Family History Relationship Description Onset Age of this Age Resolved Age Notes LastModified by Organization Details LastModified Time Mother Disorder of thyroid gland [email or web address] Not available 04/26 13:29:40 Mother Heart disease [email or web address] Not available 03/09 09:05:43 Mother Kidney disease [email or web address] Not available 03/09 09:05:43 Sister Disorder of thyroid gland 40 [email or web address] Not available 03/09 09:05:43 Medical History Condition Response TENS Unit for current problem Y Traction for current problem N Massage Therapy for current problem Y Gout N Other N Thyroid Disease N Hyperthyroidism N Emphysema N Narcotic Pain Medication for current pro blem Y Hypothyroidism Y COPD N Pneumonia N Injections for current problem N [...] NSAID Use N Osteoporosis/Osteopenia N Heart Attack ([place]) N Mental Illness N Diabetes N Bleeding [...] ICD10 Code Diagnosis IMO Codes Diagnosis Note [id number] BENJAMIN HASKINS MD ORTHOPEDI [facility] [address] [place] [address] 07/24/2018 08:58:34 07/26/2018 09:25:49 Lateral epicondylitis 361179215 M77.12 noted good prognosis with conservati ve measures Cubital tu nnel syndrome 88381149 G56.22 we discussed indication for release in situ vs transposit ion ; failed conservati ve, constant sxs [id number] MINESH GOMEZ MD ORTHOPEDI [address] [place] [address] 01/07/2019 09:44:26 01/07/2019 13:41:13 Lateral epicondylitis 752503121 M77.12 Left lateral epicondyli tis (CSI: 01/07/19; 06/2018) Cubital tu nnel syndrome 58311790 G56.22 History and exam consistent with EMG negative cubital tunnel syndrome EMG/NCV (//18) disease was normal of the left upper extremity with no evidence of compressiv e ulnar neuropathy at the elbow or wrist. [id number] MINESH GOMEZ MD ORTHOPEDI [address] [place] [address] 01/21/2019 09:32:33 01/22/2019 15:12:48 Lateral epicondylitis 403173123 M77.12 Left lateral epicondyli tis (CSI: 01/07/19; 06/2018) Cubital tu nnel syndrome 49859478 G56.22 History and exam consistent with EMG negative cubital tunnel syndrome EMG/NCV (05/02/18) disease was normal of the left upper extremity with no evidence of compressiv e ulnar neuropathy at the elbow or wrist. [id number] DONNA RICCI MD NEUROLOGY [facility] [address] [facility] [place] [address] 02/14/2019 09:28:01 02/14/2019 10:52:55 Ulnar neuropathy of left arm 3437848129 09997 G56.22 Pain of le ft elbow joint 8705447389 0691621 M25.429 [id number] MINESH GOMEZ MD ORTHOPEDI [facility] [address] [place] [address] 02/14/2019 14:20:29 02/17/2019 08:22:24 Lateral epicondylitis 110402115 M77.12 Left lateral epicondyli tis (CSI: 01/07/19; 06/2018) Cubital tu nnel syndrome 51353758 G56.22 EMG/NCV (02/14/19) demonstrat ed mild left ulnar neuropathy at the elbow and very mild left median neuropathy at the wrist. These are new findings compared to previous study in April of last year. EMG/NCV (05/02/18) was normal of the left upper extremity with no evidence of compressiv e ulnar neuropathy at the elbow or wrist. [id number] MINESH GOMEZ MD SURGERY SCHEDULE [address] [place] [address] 02/24/2019 07:12:31 02/24/2019 07:17:10 [id number] KATHRIN INGRAM PA-C [facility]THOPEDI [facility] [address] [address] 03/11/2019 10:25:47 03/11/2019 11:57:13 Lateral epicondylitis 441327556 M77.12 Left lateral epicondyli tis (CSI: 01/07/19; 06/2018) Cubital tu nnel syndrome 54971352 G56.22 EMG/NCV (02/14/19) demonstrat ed mild left ulnar neuropathy at the elbow and very mild left median neuropathy at the wrist. These are new findings compared to previous study in April of last year. EMG/NCV (05/02/18) was normal of the left upper extremity with no evidence of compressiv e ulnar neuropathy at the elbow or wrist. Carpal taylor alec syndrome 45513676 G56.02 Postoperative care 26107 9007 Z48.89 Doing well s/p Left lateral [...] to call office with any questions/ concerns. [id number] GEOFF SANDERS JR, OTR/L, T PHYSICAL THERAPY / HAND THERAPY [facility] [address] [place] [address] 03/11/2019 11:26:38 03/11/2019 16:25:00 Lateral epicondylitis 821961834 M77.12 [id number] GEOFF SANDERS JR, OTR/L, T PHYSICAL THERAPY / HAND THERAPY [facility] [address] [place] [address] 03/17/2019 09:52:44 03/17/2019 11:47:27 Lateral epicondylitis 252486593 M77.12 [id number] MINESH GOMEZ MD [facility]OPEDI [facility] [address] [place] [address] 04/10/2019 09:34:57 04/10/2019 10:06:17 Postoperative care 846102625 Z48.89 6 weeks s/p Left lateral epicondyli tis debridemen t with tendon repair; Left cubital tunnel release with subcutaneo us ulnar nerve transposit ion; Left endoscopic carpal tunnel release; Excision of left medial elbow osteophyte (DOS: 02/24/19) [id number] PURA BORREGO MD [facility]THOPEDI [facility] [address] [place] [address] 07/29/2019 10:26:55 07/29/2019 14:32:27 Tendinitis of right shoulder 6599599256 382927 M75.91 Assessment : Right shoulder scapular dyskinesia [...] obtain an MRI of the right shoulder [id number] C ILEANA JANG PA-C [facility] [address] [facility] [place] [address] 03/17/2020 12:03:31 03/17/2020 12:48:23 Knee pain 95113129 M25.569 discussed conservati ve measures to include physical therapy bracing and cortisone steroid injection. Patient elected to proceed with injection. Should pain return would recommend a course of physical therapy. Would prefer MRI to assess soft tissue and [place] of repeated steroid injections due to minimal arthritic changes [id number] ROSAILNDA SALAMANCA MD [place] [facility] [place] [address] [place] [address] 04/26/2020 13:24:06 04/26/2020 14:49:24 History of malignant neoplasm of thyroid 205600450 Z85.850 -unknown type Thyroid nodule 901626255 E04.1 -left lobe measures 3.6 x 1 x 1.4 cm with some heterogene ous echogenici ty. 4 mm nodule in the upper pole and mixed hereogerou s nodules measuring 5 x 6 mm in the left lower lobe. Fatigue 79261562 R53.83 Dysphagia 01014106 R13.1 0 Laryngopha ryngeal reflux 886150772 K21.9 -hx [id number] MINESH GOMEZ MD ORTHOPEDI [facility] [address] [place] [address] 05/17/2021 08:08:11 05/17/2021 08:48:43 Postoperative care 030630605 Z48.89 Previously s/p Left lateral epicondyli tis debridemen t with tendon repair; Left cubital tunnel release with subcutaneo us ulnar nerve transposit ion; Left endoscopic carpal tunnel release; Excision of left medial elbow osteophyte (DOS: 02/24/19) Trigger finger 865137582 1 55876 M65.331 Right long trigger finger (CSI: 05/17/21) [id number] C ILEANA JANG PA-C [facility]THOPEDI [facility] [address] [address] 07/13/2021 14:44:58 07/13/2021 15:24:12 Osteoarthritis of knee 581863467 M17.9 [id number] MINESH GOMEZ MD ORTHOPEDI [facility] [address] [address] 01/05/2022 13:37:44 01/05/2022 14:46:22 Trigger finger 8195223963 07810 M65.331 Right long trigger finger (CSI: 05/17/21) Postoperative care 31180 9007 Z48.89 Previously s/p Left lateral epicondyli tis debridemen t with tendon repair; Left cubital tunnel release with subcutaneo us ulnar nerve transposit ion; Left endoscopic carpal tunnel release; Excision of left medial elbow osteophyte (DOS: 02/24/19) [id number] DALE LITTLEJOHN DO ENDOCRINO [address] [place] [address] 01/16/2022 10:59:42 01/26/2022 11:24:31 Loss of hair 697849541 L65.9 Hypothyroidism 81006943 E03.9 [id number] MINESH GOMEZ MD SURGERY SCHEDULE [address] [place] [address] 01/18/2022 06:35:44 01/18/2022 06:37:14 [id number] SARAH REDDY OTR/L, CHT PHYSICAL THERAPY / HAND THERAPY [facility] [address] [place] [address] 01/23/2022 13:08:55 01/23/2022 14:16:31 Trigger finger of right hand 6651571266 4797265 M65.30 LF TFR [id number] KATHRIN INGRAM PA-C [facility]I [facility] [address] [facility] [place] [address] 02/02/2022 13:05:16 02/02/2022 13:31:07 Postoperative care 219837244 Z48.89 Now s/p Right middle trigger finger release (DOS: 01/18/22) Previously s/p Left lateral epicondyli tis debridemen t with tendon repair; Left cubital tunnel release with subcutaneo us ulnar nerve transposit ion; Left endoscopic carpal tunnel release; Excision of left medial elbow osteophyte (DOS: 02/24/19) [id number] Fanny JANG PA-C OR[facility]OPEDI [facility] [address] [facility] [place] [address] 03/01/2022 10:02:28 03/01/2022 10:40:04 Osteoarthritis of knee 788436466 M17.9 [id number] Fanny JANG PA-C [facility]I [facility] [address] [address] 09/08/2022 10:21:55 09/08/2022 12:48:45 Osteoarthritis of knee 721247188 M17.9 [id number] Fanny JANG PA-C [facility] [address] [place] [address] 01/12/2023 10:13:18 01/12/2023 11:12:26 Osteoarthritis of knee 710167506 M17.9 [id number] Fanny JANG PA-C [facility]I [facility] [address] [place] [address] 07/27/2023 10:30:14 07/27/2023 10:52:38 Osteoarthritis of knee 428459722 M17.9 [id number] MARLY LANDEROS PA-C NEUROSUR[facility] [address] [place] [address] 03/09/2025 09:04:28 03/10/2025 06:30:17 Cervical radiculopathy 90977588 M54.12 [id number] LUISA CARRIZALES MD SURGERY SCHEDULE [address] [place] [address] 03/25/2025 11:57:41 03/27/2025 07:38:21 [id number] LUISA CARRIZALES MD NEUROSURG [facility] [address] [place] [address] 04/20/2025 14:05:48 04/21/2025 04:33:17 Postoperative visit 873134310 Z48.89 [id number] Patient has done very well. I am very happy with her progress. We discussed increasing activity levels. She is voiced understand ing. Will see her again in 3 months time with x-rays. She knows to contact us sooner if any new issues should arise. [id number] LUISA CARRIZALES MD NEUROSURG [facility] [address] [place] [address] 07/27/2025 10:40:51 07/28/2025 04:32:01 Cervical spondylosis 769649079 M47.812 [id number] I discussed the radiograph ic findings with [...] La Member ID Guarantor Name 01/05/2022 2 [employer] ([facility]) [id number] Adalberto Ambriz [id number] Regina Ambriz 03/14/2025 2 [place] Regina Ambriz [id number] Regina Ambriz 01/10/2019 1 *SELF PAY* Veliz sherif Escobedo Abbyliegh 10/15/2022 PAYMENT PLAN Regina Ambriz 09/05/2025 1 [place] [facility] Ambriz [id number] Regina Ambriz 03/14/2025 1 [place] [facility] Regina Ambriz [id number] Regina Escobedo [place] 03/14/2025 1 [place]IONAL PPO) [facility] Regina Moraleigh [id number] Regina Ambriz Notes Date Note Type Note [...] arm symptoms. She does feel that her napper grinder is weaker but denies any issues with her dexterity. She denies balance issues. MARLY LANDEROS PA-C [address], [place], [address], [facility] 03/18/2025 12:24:39 04/20/2025 text/html ROS [...] intact hardware good alignment LUISA CARRIZALES MD [address] [place] [address] [place], [address], [facility] 04/20/2025 15:53:13 07/27/2025 text/html ROS [...] intact hardware good alignment LUISA CARRIZALES MD [facility] [place], [address], [facility] 07/27/2025 11:32:02 OBGyn Episode No OBEpisode recorded.
--- OUTSIDE RECORDS SUMMARY | 2025-11-04 14:22 | XMS_ITS | Continuity of Care Document ---
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 Education was provided on healthy nutrition, including a diet rich in fruits and vegetables, minimizing simple carbohydrates, salt, and saturated fats. Encouraged regular cardiovascular exercise such as walking at least 30 minutes daily, 5 times per week. Emphasized preventive health measures and educated pt on fall prevention and community-based lifestyle interventions to help reduce health risks and promote healthy living. Medicare Preventive Services Check List reviewed and printed for patient. jessee Not available 09/18/2025 10:06:14 Plan of Treatment Reminders Order Date Submit Date Provider Last Modified By Organization Details Last Modified Time Details Appointments None record ed. Lab None record ed. Referral None record ed. Procedures None record ed. Surgeries None record ed. Imaging None record ed. Medication Orders None record ed. Patient TargetsNo targets recorded. Patient Instructions Encounter Date Encounter Id Patient Instructions Last Modified By Organization Details Last Modified Time 09/18/2025 [id number] advance directives: care instructions efryman Not available 09/18/2025 11:15:07 learning about depression efryman Not available 09/18/2025 11:15:07 preventing falls : care instructions efryman Not available 09/18/2025 11:15:07 medicare preventive services guide efryman Not available 09/18/2025 11:15:06 Reason for Referral None Reported. Results Created Date Observation Date Name Description Value Unit Range Abnormal Flag Note LastModifiedBy Organization Detail LastModifiedTime 10/20/20 25 10/20/2025 XR, foot, 3 or more view No observ ation record ed. [facility] [address], [place], [address], 10/20/2025 16:27:17 10/20/20 25 10/20/2025 XR, foot, 3 or more view No observ ation record ed. [facility] [address], [place], [address], 10/20/2025 16:27:08 Result Notes None recorded. 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 Procedures Surgical History Date Name Laterality Status Provider Name and Address Organization Details Recorded Time 09/18/20 Advance Care Planning completed Cristin Jenkins [place] - [facility] 09/18/2025 10:06:15 09/18/20 25 Functional Status Assessed completed Cristin Jenkins [place] - [facility] 09/18/2025 10:06:15 10/30/20 24 Date of Last Mammogram completed Jade Edwards [place] - [facility] 11/20/2024 11:11:32 08/09/20 21 Date of Last Colonoscopy completed Cristin Jenkins [place] - [facility] 06/29/2022 12:03:11 11/05/19 06 Caesarean Section completed Cristin Jenkins [place] - [facility] 09/18/2025 10:11:26 11/05/19 05 Arthroscopic [place] completed Cristin Jenkins [place] - [facility] 09/18/2025 10:11:26 release of trigger finger completed Cristin Jenkins [place] [facility] 06/29/2022 12:08:51 cholecystectomy completed Cristin Jenkins [place] [facility] 06/29/2022 12:09:01 operation on neck completed Sandi Jenkins [place] [facility] 06/29/2022 12:09:16 Knee Surgery completed Cristin [place] [facility] 06/29/2022 12:09:32 hysterectomy completed Cristin Jenkins [place] [facility] 06/29/2022 12:09:46 Carpal tunnel surgery completed Cristin Jenkins [place] [facility] 06/29/2022 12:09:57 procedure on elbow completed Jade Michaels [place] - [facility] 01/02/2023 16:35:43 repair of elbow completed Jade Alecs [place] - [facility] 01/02/2023 16:35:36 Cancer Surgery completed Cristin Jenkins [place] [facility] 09/18/2025 10:11:26 Thyroid Surgery completed Cristin Jenkins [place] [facility] 09/18/2025 10:11:26 Imaging Results None recorded. Procedure Notes None recorded. Medical Equipment None Reported. Allergies Allergen ID Allergen Name Allergen Category Reaction Reaction Severity Criticality Documentation Date Start Date Code Code System Note Provider Name and Address Organization Details Recorded Time 463152 Ceclor medicatio n rash moderate high 06/29/202292881 5 RxNorm Cristin Alice null, [place] - [facility] 2 13:16:21 839567 Cymbalta medicatio n rash Not available high 06/29/2022 44765 4 RxNorm Cristin Jenkins null, [place] - [facility] 2 13:16:46 432882 Cipro medicatio n rash moderate high 06/29/2022 52856 3 RxNorm Cristin Jenkins null, [place] - [facility] 2 13:16:36 162066 cefaclor medicatio n Not available Not available low 09/18/20252024 2176 RxNorm Not Available arielle - External Data Service - prod 5 03:46:01 004559 ciproflox acin medicatio n Not available Not available low 09/18/20252024 2551 RxNorm Not Available arielle - External Data Service - prod 5 03:46:01 191941 duloxetin e medicatio n Not available Not available Not available 09/18/20252024 47230 RxNorm Tempo rary paral ysis Not Available arielle - External Data Service - prod 5 03:46:01 Medications Name Sig Start Date Stop Date Status Note LastModified by Organization Details LastModified Time Prescripti on - Prior Authorizat ion Request active Not Available Not Available Not Available cyclobenza clifton 10 mg tablet Take 1 tablet as needed by oral route at bedtime. 10/05 completed Not Available Not Available Not Available amoxicilli n 500 mg capsule TAKE 1 CAPSULE BY MOUTH TWICE DAILY FOR 7 DAYS 08/19 completed Not Available Not Available Not Available furosemide 40 mg tablet TAKE 1 TABLET BY MOUTH ONCE DAILY active Not Available Not Available No t Available fluconazol e 100 mg tablet TAKE 1 TABLET BY MOUTH NOW AND MAY REPEAT IN 3 DAYS IF NO IMPROVEM ENT 11/20 completed Not Available Not Available Not Available atorvastat in 40 mg tablet TAKE 1 TABLET BY MOUTH AT BEDTIME 06/29 completed Not Available Not Available Not Available methocarba mol 500 mg tablet TAKE 1 TABLET BY MOUTH THREE TIMES DAILY NEEDED FOR MUSCLE SPASM 11/08 completed Not Available Not Available Not Available azithromyc in 250 mg tablet TAKE 2 TABLETS BY MOUTH ON DAY 1, AND THEN TAKE 1 TABLET BY MOUTH ONCE A DAY ON DAY 2 THROUGH DAY 5 08/19 completed Not Available Not Available Not Available prednisone 20 mg tablet TAKE 1 TABLET BY MOUTH TWICE DAILY FOR 5 DAYS 08/19 completed Not Available Not Available Not Available meclizine 12.5 mg tablet Take 1 tablet 3 times a day by oral route as needed for 3 days. 09/18 completed Not Available Not Available Not Available phentermin e 37.5 mg tablet TAKE 1 TABLET BY MOUTH ONCE DAILY 02/17 completed Not Available Not Available Not Available clopidogre l 75 mg tablet TAKE 1 TABLET BY MOUTH ONCE DAILY 01/02 completed Not Available Not Available Not Available aspirin 81 mg tablet,del ayed release TAKE 1 TABLET BY MOUTH ONCE DAILY active on hold x 7days Not Available Not Available Not Available tramadol 50 mg tablet TAKE 1 TABLET BY MOUTH EVERY 4 TO 6 HOURS NEEDED FOR SEVERE PAIN POST SURGICAL 06/29 completed Not Available Not Available Not Available spironolac tone 25 mg tablet TAKE 1 TABLET BY MOUTH ONCE DAILY active Not Available Not Available No t Available ketorolac 30 mg/mL (1 mL) injection solution Inject 0.5 mL as needed by intramus cular route as needed. 10/05 completed Not Available Not Available Not Available amoxicilli n 500 mg tablet Take 1 tablet twice a day by oral route for 7 days. 08/19 completed Not Available Not Available Not Available meloxicam 7.5 mg tablet TAKE 1 TABLET BY MOUTH ONCE DAILY FOR PAIN 06/29 completed Not Available Not Available Not Available levothyrox ine 100 mcg tablet TAKE 1 TABLET BY MOUTH ONCE DAILY active Not Available Not Available No t Available levothyrox ine 88 mcg tablet TAKE 1 TABLET BY MOUTH ONCE DAILY active Not Available Not Available No t Available Valium 2 mg tablet Take 1 tablet every day by oral route as needed for 3 days. 03/13 completed Not Available Not Available Not Available pantoprazo le 40 mg tablet,del ayed release TAKE 1 TABLET BY MOUTH AT BEDTIME FOR 28 DAYS 10/05 completed Not Available Not Available Not Available oseltamivi r 75 mg capsule Take 1 capsule twice a day by oral route for 5 days, for flu b. 11/20 completed Not Available Not Available Not Available losartan 25 mg tablet TAKE 1 TABLET BY MOUTH EVERY DAY 08/21 completed Not Available Not Available Not Available indomethac in 50 mg capsule TAKE 1 CAPSULE BY MOUTH THREE TIMES DAILY 2024 active Not Available Not Available Not Avai lable docusate sodium 100 mg capsule TAKE 1 CAPSULE BY MOUTH TWICE DAILY active Not Available Not Available No t Available gabapentin 300 mg capsule TAKE 1 CAPSULE BY MOUTH THREE TIMES DAILY active Not Available Not Available No t Available irbesartan 75 mg tablet TAKE 1 TABLET BY MOUTH ONCE DAILY FOR 30 DAYS 06/29 completed Not Available Not Available Not Available gabapentin 100 mg capsule TAKE 1 CAPSULE BY MOUTH TWICE DAILY NEEDED 09/18 completed Not Available Not Available Not Available metoprolol succinate ER 25 mg tablet,ext ended release 24 hr TAKE 1 TABLET BY MOUTH ONCE DAILY active Not Available Not Available No t Available ergocalcif kia (vitamin D2) 1,250 mcg (50,000 unit) capsule TAKE 1 CAPSULE BY MOUTH ONCE A WEEK active Not Available Not Available No t Available dexamethas one sodium phosphate 4 mg/mL injection solution Inject 1 mL as needed by intramus cular route. 08/19 completed Not Available Not Available Not Available methylpred nisolone 4 mg tablets in a dose pack TAKE DIRECTED FOR PAIN, SWELLING 06/29 completed Not Available Not Available Not Available albuterol sulfate HFA 90 mcg/actuat ion aerosol inhaler INHALE 2 PUFFS BY MOUTH EVERY 4 TO 6 HOURS NEEDED 07/04 completed Not Available Not Available Not Available fluticason e propionate 50 mcg/actuat ion nasal spray,susp ension USE 1 TO 2 SPRAY(S) IN EACH NOSTRIL ONCE DAILY 09/18 completed Not Available Not Available Not Available cyclobenza clifton 5 mg tablet TAKE 1 TABLET BY MOUTH THREE TIMES DAILY active Not Available Not Available No t Available rosuvastat in 10 mg tablet TAKE 1 TABLET BY MOUTH ONCE DAILY 02/08 completed Not Available Not Available Not Available rosuvastat in 40 mg tablet TAKE 1/2 TABLET (20 MG) BY ORAL ROUTE ONCE DAILY 08/21 completed causes muscle cramps Not Available Not Available Not Available levalbuter ol HFA 45 mcg/actuat ion aerosol inhaler INHALE 2 PUFFS BY MOUTH EVERY 4 HOURS NEEDED active Not Available Not Available No t Available levocetiri zine 5 mg tablet TAKE 1 TABLET BY MOUTH ONCE DAILY active Not Available Not Available No t Available diclofenac 1 % topical gel APPLY 4 GRAMS TOPICALL Y 4 TIMES DAILY NEEDED FOR PAIN, APPLY TO SINGLE KNEE, ANKLE, FOOT. GENTLY MASSAGE INTO AREA. FOR FOOT INCLUDES SOLE/TOE S/TOP OF FOOT 08/21 completed Not Available Not Available Not Available liraglutid e 0.6 mg/0.1 mL (18 mg/3 mL) subcutaneo us pen injector INJECT 1.8 MG SUBCUTAN EOUSLY EVERY DAY active Not Available Not Available No t Available azelastine 137 mcg-flutic asone 50 mcg/spray nasal spray 09/18 completed Not Available Not Available Not Available Arnuity Ellipta 100 mcg/actuat ion powder for inhalation INHALE 1 PUFF BY MOUTH ONCE DAILY DIRECTED RINSE MOUTH AFTER USE active Not Available Not Available No t Available Saxenda 3 mg/0.5 mL (18 mg/3 mL) subcutaneo us pen injector Inject 0.6 mg every day by subcutan eous route. 09/15 completed Not Available Not Available Not Available Repatha SureClick 140 mg/mL subcutaneo us pen injector INJECT CONTENTS OF 1 PEN SUBCUTAN EOUSLY EVERY TWO WEEKS 09/18 completed Not Available Not Available Not Available UltiCare Pen Needle 32 gauge x 1/4 USE DIRECTED WITH VICTOZA active Not Available Not Available No t Available Wegovy 1 mg/0.5 mL subcutaneo us pen injector Inject 1 mg every week by subcutan eous route for 30 days. 02/17 completed Not Available Not Available Not Available Wegovy 0.25 mg/0.5 mL subcutaneo us pen injector Inject 0.25 mg every week by subcutan eous route. 11/20 completed Not Available Not Available Not Available Wegovy 0.5 mg/0.5 mL subcutaneo us pen injector Inject 0.5 mg every week by subcutan eous route for 30 days. 11/20 completed Not Available Not Available Not Available Paxlovid 300 mg (150 mg x 2)-100 mg tablets in a dose pack TAKE TWICE A DAY BY MOUTH DIRECTED ON PACKAGE FOR 5 DAYS 10/05 completed Not Available Not Available Not Available Vitals Date Recorded Body height Body mass index (BMI) Body weight Respiratory rate Heart rate Oxygen saturation Body temperature Pain severity - 0-10 verbal numeric rating [Score] - Reported Systolic And Diastolic Provider Name and Address Organization Details Last Updated DateTime 5 160.02 cm 37.7 kg/m2 64104.1 7 g 18 /min 78 /min 97 % 97.2 [degF] 0 128/82 mm[Hg] Cristin Alejandreler [place] - [facility] 5 10:31:27 Social History Question Answer Notes LastModified by Organizat ion Details LastModified Time Tobacco Smoking Status Former Smoker Cristin lloyd, [place] - [facility] 06/29/2022 12:07:18 Do You Have An Advance Directive? No Information n ot available 01/02/2023 Are You Blind Or Do You Have Difficulty Seeing? No Information n ot available 01/02/2023 Is Blood Transfusion Acceptable In An Emergency? Yes Information not available 09/18/2025 What Is Your Level Of Caffeine Consumption? Moderate Information not available 06/29/2022 In The 14 Days Before Symptom Onset, Have You Had Close Contact With A Laboratory-confirm ed COVID-19 While That Case Was Ill? No Information n ot available 08/30/2023 In The 14 Days Before Symptom Onset, Have You Had Close Contact With A Person Who Is Under Investigation For COVID-19 While That Person Was Ill? No Information not available 08/30/2023 Have You Been To An Area Known To Be High Risk For COVID-19? No Information not available 08/30/2023 Are You Deaf Or Do You Have Serious Difficulty Hearing? No Information not available 01/02/2023 What Type Of Diet Are You Following? REGULAR Information n ot available 01/02/2023 Have You Processed Blood Or Body Fluids From An Ebola Virus Disease Patient Without Appropriate PPE? No Information not available 08/30/2023 Do You Reside In Or Have You Traveled To An Area Where Ebola Virus Transmission Is Active? No Information not available 08/30/2023 What Is The Highest Grade Or Level Of School You Have Completed Or The Highest Degree You Have Received? [id number] Information not available 01/02/2023 Have There Been Any Changes To Your Family Or Social Situation? No Information no t available 01/02/2023 What Is The Fluoride Status Of Your Home? Unknown Information not available 01/02/2023 When Did You Quit Smoking? 6-10yearssinc elza velez 2016 Information not available 01/02/2023 Have You Recently Or Are You Planning To Travel To An Area With Zika Virus? No Information not available 08/30/2023 Do You Have A Medical Power Of Cash Poster? No Information not available 01/02/2023 What Was The Date Of Your Most Recent Tobacco Screening? 11/20/2024 Information not available 11/20/2024 How Many Children Do You Have? 2 Information not available 09/18/2025 Do You Use Protection Against STDs? No Information not available 09/18/2025 What Is Your Relationship Status? Information not available 06/29/2022 Do You Use Your Seat Belt Or Car Seat Routinely? Yes Information not available 09/18/2025 Are You Sexually Active? Yes Information not available 06/29/2022 Do You Have Smoke And Carbon Monoxide Detectors In Your Home? No Information not available 09/18/2025 At What Age Did You Start Smoking Tobacco? 15 Information not available 01/02/2023 Are You Passively Exposed To Smoke? No Information no t available 01/02/2023 Do You Use Sunscreen Routinely? No Information not available 09/18/2025 Has Tobacco Cessation Counseling Been Provided? No Information not available 01/02/2023 How Many Years Have You Smoked Tobacco? 30 Information not available 01/02/2023 Do You Have Difficulty Walking Or Climbing Stairs? No Information not available 01/02/2023 Sex: Female Functional Status Question Answer Note LastModified by Organizat ion Details LastModified Time Do you use any illicit or recreational drugs? No Information not available 06/29/2022 Do you or have you ever used any other forms of tobacco or nicotine? No Information not available 06/29/2022 What is your level of alcohol consumption? None Information not available 06/29/2022 Are you currently employed? No Information not available 01/02/2023 Do you have transportation difficulties? No Information not available 01/02/2023 Are you able to walk independently without assistance or assistive devices? YESWOREST Information not available 01/02/2023 Do you have difficulty doing errands alone? No Information not available 01/02/2023 Are you able to care for yourself independently? Yes Information not available 01/02/2023 Do you have difficulty dressing, bathing, grooming, or toileting? No Information not available 01/02/2023 Do you or have you ever used e-cigarettes or vape? Current user of electronic cigarettes Information not available 09/18/2025 What is your exercise level? None Information not available 01/02/2023 Mental Status Question Answer Note LastModified by Organizat ion Details LastModified Time Do you feel stressed (tense, restless, nervous, or anxious, or unable to sleep at night)? [id number] Information not available 09/18/2025 Do you have difficulty concentrating, remembering or making decisions? No Information no t available 01/02/2023 Family History Relationship Description Onset Age of this Age Resolved Age Notes LastModified by Organization Details LastModified Time Mother Malignant neoplasm of kidney cbuckler Not available 2024 10:11:06 Mother Disorder of thyroid gland cbuckler Not available 2024 10:11:06 Mother Malignant neoplasm of cervix uteri cbuckler Not available 10:11:06 Mother Diabetes mellitus cbuckler Not available 2024 10:11:06 Maternal Grandmother Malignant neoplasm of breast cbuckler Not available 2021 12:06:19 Maternal Grandmother Arthritis cbuckler Not available 10:11:06 Medical History Condition Response Allergies/Hayfever Y Muscle, Joint, or Bone Problems Y Gout Y Obesity Y Vision or Eye Problems Y Degenerative Disc Disease Y Kidney Stones Y Head Injury/Concussion Y Myocardial Infarction Y Cancer Y Thyroid Problems Y Constipation Y Hypercholesterolemia Y Sleep Apnea Y Heart Disease Y Headaches Y Hypertension Y Gynecological History Statement/Question Response Abnormal Pap N Date of Last Mammogram 10/30/2024 Date of LMP 11/05/2004 Post Menopausal Bleeding N STIs/STDs N HPV Vaccine N Current Control Method Menopause Age at First Child 31 If Post Menopausal, Age at Menopause 36 Date of Last Colonoscopy 08/09/2021 Most Recent Bone Density Sexually Active? Y Menses Monthly N Date of Last Pap Smear Sexual Problems? Y LMP Unknown Hormone Replacement Therapy N Obstetrics History GPAL:G 2 P 0 2 0 2 Type Value Premature 2 Living 2 Total 2 Immunizations Vaccine Type Date Status Note Provider Name and Address Organization Details Recorded Time Influenza, split virus, trivalent, PF 025 cancelled patient objection Julio Cesar Donaldson APRN [address], [place], [address], [facility] - [facility] 09/18/2025 11:15:11 Tdap 025 completed Cristin lloyd, [place] - [facility] 09/18/2025 14:03:14 Pneumococcal conjugate PCV20, polysaccharide UMP036 conjugate, adjuvant, PF 025 cancelled patient objection Julio Cesar Donaldson APRN [address], [place], [address], [facility] - [facility] 09/18/2025 11:15:11 Past Encounters Encounter ID Performer Location Encounter Start Date Encounter Closed Date Diagnosis/Indication Diagnosis SNOMED-CT Code Diagnosis ICD10 Code Diagnosis IMO Codes Diagnosis Note [id number] Julio Cesar Donaldson APRN [address] [address] 09/18/2025 09:56:35 09/18/2025 11:38:59 Adult health examination 508122272 Z00.00 Depression screening 171 995452 Z13.31 A depression screening was completed via a standardiz ed screening tool. 5 minutes were spent discussing depression screening results and risk factors. Examinatio n of blood pressure 098718263 Z01.30 Diet education 45358617 Z71.3 Counseling 814392724 Z71 .82 Exercise counseling . Patient encouraged to exercise 30 minutes 5 days a week. At [facility] ed risk for falls 364284960 Z91.81 STEADI FAST screening score of _0____. Advance care planning 71 9665163 Z71.89 Active immunization 3387 9002 Z23 99990714 HIV screen ing declined 6038554234 93527 Z53.20 [id number] Health Concerns Section Related Observation LastModified by Organization Detai ls LastModified Time None Recorded Concern Status LastModified by Organization Details LastModified Time None Recorded Payers Encounter Date Sequence Insurance Name Policy Number Policy La Covered Member ID La Member ID Guarantor Name 09/18/2025 1 [place] [employer] [place] [employer]MEDICARE REPLACEMENT HMO) [id number] Regina Ambriz [id number] Regina Ambriz Notes Date Note Type Note Provider Name and Address Organization Details Recorded Time 5 text/html Medicare Annual Wellness VisitReported by PatientSocial/Behavioral HistoryFor diet and nutrition, patient reportsdiscussed vitamin and supplement useanddiscussed portion control. For fracture risk, patient reportsno history of fractures,no recent explained fracture,no sudden unexplained fractures, andno previous musculoskeletal injuries. For physical activity, patient reportsdiscussed weightbearing activitiesanddiscussed exercise habits.Mental Status:For depression risk, patient reportsnever feels sad, empty, or tearful,no loss of interest in activities,no significant changes in weight,no sleep disturbances or insomnia,no agitation,no loss of energy,no feelings of worthlessness or guilt,no thoughts of suicide,no history of depression, andno history of mood disorders. For orientation, patient reportsno disorientation to time,no disorientation to date, andno disorientation to place. For concentration and memory, patient reportsno decreased concentrating ability,no memory lapses or loss, anddoes not forget words. For speech/motor difficulties, patient reportsno speech difficulties,no difficulty expressing formulated concepts,no difficulty with fine manipulative tasks,no difficulty writing/copying,no slowed reaction time, anddoes not knock things over when trying to pick them up.Functional AbilityFor vision, patient reportsworse both distance and near(has glasses, had eye exam recently). For hearing, patient reportsno loss of hearing. For activities of daily living, patient reportsable to bathe with limited or no assistance,able to contol urination and bowels,able to dress with limited or no assistance,able to feed self with limited or no assistance,able to get out of chair or bed with limited or no assistance,able to groom with limited or no assistance, andable to toilet with limited or no assistance. For instrumental activities of daily living, patient reportsable to do house work with limited or no assistance,able to grocery shop with limited or no assistance,able to manage medications with limited or no assistance,able to manage money with limited or no assistance,able to prepare meals with limited or no assistance, andable to use the phone with limited or no assistance. For falls risk assessment, patient reportsno frequent falls while walking,no fall in the past year,no fall since last visit, andno dizziness/vertigo. For home safety, patient reportsno unsafe pricila hazzards,no unsafe stairs,no unsafe gas appliances,working smoke/co detectors,use of seatbelts,no vision or hearing loss while driving,no fire arms, andgood lighting in the home. For current level of pain, patient reportsno pain: 0/10. 54 yr old female presents for a medicare annual wellness exam. 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
--- OUTSIDE RECORDS SUMMARY | 2025-11-04 14:23 | XMS_ITS | Referral Summary ---
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 Name Role Phone Julio Cesar Donaldson Primary Care Provider [phone] Allergies Active Allergy Reactions Criticality Noted Date [...] on file Medical Devices Implanted Type Area Lockstitch Binder Device Identifier Shelf Expiration Date Model / Serial / Lot Bone Vivigen Formable Sm [id number] - [id number] Implanted:Qty : 1 on 03/24/2025 by Edda Carrizales MD at [facility] IMPLANTS N/A: Spine Cervical LIFENET:LIFENET TRANSPLANT SRV 11/21/2025 [id number] / Cage Stalif 12x5.5mm 6d 16ml [id number] - [id number] Implanted:Qty : 3 on 03/24/2025 by Edda Carrizales MD at [facility] IMPLANTS N/A: Spine Cervical [employer] 06/02/2027 [id number] / / [id number] Scr Abo Long 4x16mm [id number] - [id number] Implanted:Qty : 9 on 03/24/2025 by Edda Carrizales MD at [facility] IMPLANTS N/A: Spine Cervical [employer] 11/15/2027 [id number] / / [id number] Insurance [facility] ACCESS HMO MAP Advance Directives For more information, please contact: [phone] * Full Code (Latest Code Status on File) Date Activated Date Inactivated Comments 03/24/2025 10:45 AM 03/25/2025 3:36 PM 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
--- OUTSIDE RECORDS SUMMARY | 2025-11-04 14:23 | XMS_ITS | Data Portability ---
Author Organization [facility] Address [address] [place] [address] Care Team Providers Care Operations Officer Trust Department Name Role Phone BRUNA DUTTONAdelita Primary Care Provider Assessment Encounter Date Assessment [...] Check List reviewed and printed for patient. [email or web address] Not available 09/18/2025 10:06:14 Plan of Treatment Reminders Order Date Submit Date Provider Last Modified By Organization Details Last Modified Time Details Appointments None recorded. Lab CBC w/ auto diff 2024 025 [facility], [address], [place] [address], [place], [address], 5 00:06:27 CMP, serum or plasma 2024 025 ARIELLE [facility], [address], [place] [address], [place], [address], 5 00:06:27 HbA1c (hemoglobin A1c), blood 2024 025 ARIELLE [facility], [address], [place] [address], [place], [address], 5 00:06:28 lipid panel, serum 2024 025 ARIELLE [facility], [address], [place], [place], [address], 5 00:06:27 vitamin D, 25-hydroxy, total, serum 2024 025 ARIELLE [facility], [address], [place] [address], [place], [address], 5 00:06:29 TSH + free T4, serum 2024 025 ARIELLE [facility], [address], [place], [place], [address], 5 00:06:26 Hepatitis C IgG Ab, qual, serum 2024 025 ARIELLE [facility], [address], [place] [address], [place], [address], 5 00:06:28 HIV 1 + 2 RNA panel, JARRED+probe, serum or plasma 2024 025 ARIELLE [facility], [address], [place], [place], [address], 5 00:06:28 vitamin D, 25-hydroxy, total, serum 2024 025 ARIELLE [facility], [address], [place], [place], [address], 5 13:07:40 HbA1c (hemoglobin A1c), blood 2024 025 ARIELLE [facility], [address], [place], [place], [address], 5 13:07:40 TSH + free T4, serum 2024 025 ARIELLE [facility], [address], [place], [place], [address], 13:07:39 CBC w/ auto diff 2024 025 ARIELLE [facility], [address], [place], [place], [address], 13:07:39 vitamin B12, serum 2024 025 ARIELLE [facility], [address], [place] [address], [place], [address], 13:07:41 CMP, serum or plasma 2024 025 ARIELLE [facility], [address], [place], [place], [address], 13:07:39 TSH + free T4, serum 2024 025 ARIELLE Reed, [address], [place], [place], [address], 04:06:37 drug screen, urine 2024 025 [facility], [address] [place] [address], [id number], 5 12:08:29 iron + total iron-bindin g capacity (TIBC), serum 2024 025 ARIELLE [facility], [address], [place] [address], [place], [address], 5 04:06:38 CBC w/ auto diff 2024 025 ARIELLE Reed, [address], [place] [address], [place], [address], 13:07:47 CMP, serum or plasma 2024 025 ARIELLE Reed, [address], [place] [address], [place], [address], 13:07:48 urinalysis, complete 2024 025 [facility], [address], [place], [address], 13:07:48 Referral None recorded. Procedures None recorded. Surgeries None recorded. Imaging None recorded. Medication Orders Saxenda 3 mg/0.5 mL (18 mg/3 mL) subcutaneou s pen injector 2024 025 [facility], [address], [address], 11:54:33 cyclobenzap rine 5 mg tablet 2024 025 [facility], [address], [address], 05:02:13 gabapentin 100 mg capsule 2024 025 [facility], [address], [address], 12:02:46 gabapentin 100 mg capsule 2024 025 [facility], [address], [address], 10:23:32 Patient TargetsNo targets recorded. Patient Instructions Encounter Date Encounter Id Patient Instructions Last Modified By Organization Details Last Modified Time 07/17/2025 [id number] learning about healthy weight efryman Not available 07/17/2025 10:12:51 body mass index: care instructions efryman Not available 07/17/2025 10:12:51 09/18/2025 [id number] advance directives: care instructions efryman Not available 09/18/2025 11:15:07 learning about depression efryman Not available 09/18/2025 11:15:07 preventing falls : care instructions efryman Not available 09/18/2025 11:15:07 medicare preventive services guide efryman Not available 09/18/2025 11:15:06 Reason for Referral None Reported. Results Created Date Observation Date Name Description Value Unit Range Abnormal Flag Note LastModifiedBy Organization Detail LastModifiedTime 03/12/2003/13/2025 TSH+F REE T4 TSH 0.402 uIU/m L 0.450- 4.500 below low normal Not Available [facility] ([facility]) [address] [place], [address], 03/13/2025 13:11:00 03/12/2003/13/2025 TSH+F REE T4 T4,free(dire ct) 1.66 NG/dL 0.82-1 .77 normal Not Available [facility] ([facility]) [address] [place], [address], 03/13/2025 13:11:00 03/12/20 25 03/13/2025 CBC WITH DIFFE RENTI AL/PL ATELE T WBC 7.8 x10e3 /uL 3.4-10 .8 normal Not Available [facility] ([facility]) [address] [place], [address], 03/13/2025 13:11:01 03/12/20 25 03/13/2025 CBC WITH DIFFE RENTI AL/PL ATELE T RBC 4.61 x10e6 /uL 3.77-5 .28 normal Not Available [facility] ([facility]) [address] [place], [address], 03/13/2025 13:11:01 03/12/20 25 03/13/2025 CBC WITH DIFFE RENTI AL/PL ATELE T hemoglobin 12.7 g/dL 11.1-1 5.9 normal Not Available [facility] ([facility]) [address] [place], [address], 03/13/2025 13:11:01 03/12/20 25 03/13/2025 CBC WITH DIFFE RENTI AL/PL ATELE T hematocrit 39.7 % 34.0-4 6.6 normal Not Available [facility] ([facility]) [address] [place], [address], 03/13/2025 13:11:01 03/12/20 25 03/13/2025 CBC WITH DIFFE RENTI AL/PL ATELE T MCV 86 fL 79-97 normal Not Available [facility] ([facility]) [address] [place], [address], 03/13/2025 13:11:01 03/12/20 25 03/13/2025 CBC WITH DIFFE RENTI AL/PL ATELE T MCH 27.5 pg 26.6-3 3.0 normal Not Available [facility] ([facility]) [address] [place], [address], 03/13/2025 13:11:01 03/12/20 25 03/13/2025 CBC WITH DIFFE RENTI AL/PL ATELE T MCHC 32.0 g/dL 31.5-3 5.7 normal Not Available [facility] ([facility]) [address] [place], [address], 03/13/2025 13:11:01 03/12/20 25 03/13/2025 CBC WITH DIFFE RENTI AL/PL ATELE T RDW 13.5 % 11.7-1 5.4 Not Available [facility] ([facility]) [address] [place], [address], 03/13/2025 13:11:01 03/12/20 25 03/13/2025 CBC WITH DIFFE RENTI AL/PL ATELE T platelets 345 x10e3 /uL 150-45 0 normal Not Available [facility] ([facility]) [address] [place], [address], 03/13/2025 13:11:01 03/12/20 03/13/2025 CBC WITH DIFFE RENTI AL/PL ATELE T neutrophils 60 % not estab. normal Not Available [facility] ([facility]) [address] [place], [address], 03/13/2025 13:11:01 03/12/20 25 03/13/2025 CBC WITH DIFFE RENTI AL/PL ATELE T lymphs 31 % not estab. normal Not Available [facility] ([facility]) [address] [place], [address], 03/13/2025 13:11:01 03/12/20 25 03/13/2025 CBC WITH DIFFE RENTI AL/PL ATELE T monocytes 7 % not estab. normal Not Available [facility] ([facility]) [address] [facility], [place], [address], 03/13/2025 13:11:01 03/12/20 25 03/13/2025 CBC WITH DIFFE RENTI AL/PL ATELE T eos 1 % not estab. normal Not Available [facility] ([facility]) [address] [facility], [place], [address], 03/13/2025 13:11:01 03/12/20 25 03/13/2025 CBC WITH DIFFE RENTI AL/PL ATELE T basos 1 % not estab. normal Not Available [facility] ([facility]) [address] [place], [address], 03/13/2025 13:11:01 03/12/20 25 03/13/2025 CBC WITH DIFFE RENTI AL/PL ATELE T immature cells THERMITE WELDER Not Available [facility] ([facility]) [address] [place], [address], 03/13/2025 13:11:01 03/12/20 25 03/13/2025 CBC WITH DIFFE RENTI AL/PL ATELE T neutrophils (absolute) 4.7 x10e3 /uL 1.4-7. 0 normal Not Available [facility] ([facility]) [address] [facility], [place], [address], 03/13/2025 13:11:01 03/12/20 25 03/13/2025 CBC WITH DIFFE RENTI AL/PL ATELE T lymphs (absolute) 2.4 x10e3 /uL 0.7-3. 1 normal Not Available [facility] ([facility]) [address] [facility], [place], [address], 03/13/2025 13:11:01 03/12/20 25 03/13/2025 CBC WITH DIFFE RENTI AL/PL ATELE T monocytes(ab solute) 0.5 x10e3 /uL 0.1-0. 9 normal Not Available [facility] ([facility]) [address] [facility], [place], [address], 03/13/2025 13:11:01 03/12/20 25 03/13/2025 CBC WITH DIFFE RENTI AL/PL ATELE T eos (absolute) 0.1 x10e3 /uL 0.0-0. 4 normal Not Available [facility] ([facility]) [address] [facility], [place], [address], 03/13/2025 13:11:01 03/12/20 25 03/13/2025 CBC WITH DIFFE RENTI AL/PL ATELE T baso (absolute) 0.1 x10e3 /uL 0.0-0. 2 normal Not Available [facility] ([facility]) [address] [place], [address], 03/13/2025 13:11:01 03/12/20 25 03/13/2025 CBC WITH DIFFE RENTI AL/PL ATELE T immature granulocytes 0 % not estab. Not Available [facility] ([facility]) [address] [facility], [place], [address], 03/13/2025 13:11:01 03/12/20 25 03/13/2025 CBC WITH DIFFE RENTI AL/PL ATELE T immature grans (abs) 0.0 x10e3 /uL 0.0-0. 1 Not Available [facility] ([facility]) [address] [facility], [place], [address], 03/13/2025 13:11:01 03/12/20 25 03/13/2025 CBC WITH DIFFE RENTI AL/PL ATELE T NRBC THERMITE WELDER Not Available [facility] ([facility]) [address] [facility], [place], [address], 03/13/2025 13:11:01 03/12/20 25 03/13/2025 CBC WITH DIFFE RENTI AL/PL ATELE T hematology comments: THERMITE WELDER Not Available [facility] ([facility]) [address] [facility], [place], [address], 03/13/2025 13:11:01 03/12/20 25 03/13/2025 COMP. METAB OLIC PANEL (14) glucose 106 mg/dL 70-99 above high normal Not Available [facility] ([facility]) [address] [facility], [place], [address], 03/13/2025 13:11:01 03/12/20 25 03/13/2025 COMP. METAB OLIC PANEL (14) BUN 16 mg/dL 6-24 normal Not Available [facility] ([facility]) [address] [facility], [place], [address], 03/13/2025 13:11:01 03/12/20 25 03/13/2025 COMP. METAB OLIC PANEL (14) creatinine 0.96 mg/dL 0.57-1 .00 normal Not Available [facility] ([facility]) [address] [place], [address], 03/13/2025 13:11:01 03/12/20 25 03/13/2025 COMP. METAB OLIC PANEL (14) eGFR 70 mL/mi n/1.7 3 >59 normal Not Available [facility] ([facility]) [address] [place], [address], 03/13/2025 13:11:01 03/12/20 25 03/13/2025 COMP. METAB OLIC PANEL (14) BUN/creatini ne ratio 17 9-23 normal Not Available [facility] ([facility]) [address] [place], [address], 03/13/2025 13:11:01 03/12/20 25 03/13/2025 COMP. METAB OLIC PANEL (14) sodium 136 mmol/ L 134-14 4 normal Not Available [facility] ([facility]) [address] [facility] [place], [address], 03/13/2025 13:11:01 03/12/20 25 03/13/2025 COMP. METAB OLIC PANEL (14) potassium 3.5 mmol/ L 3.5-5. 2 normal Not Available [facility] ([facility]) [address] [facility], [place], [address], 03/13/2025 13:11:01 03/12/20 25 03/13/2025 COMP. METAB OLIC PANEL (14) chloride 98 mmol/ L 96-106 normal Not Available [facility] ([facility]) [address] [facility] [place], [address], 03/13/2025 13:11:01 03/12/20 25 03/13/2025 COMP. METAB OLIC PANEL (14) carbon dioxide, total 21 mmol/ L 20-29 normal Not Available [facility] ([facility]) [address] [facility] [place], [address], 03/13/2025 13:11:01 03/12/20 25 03/13/2025 COMP. METAB OLIC PANEL (14) calcium 9.4 mg/dL 8.7-10 .2 normal Not Available [facility] ([place] [facility]) [address] [facility] [place], [address], 03/13/2025 13:11:01 03/12/20 25 03/13/2025 COMP. METAB OLIC PANEL (14) protein, total 7.1 g/dL 6.0-8. 5 normal Not Available [facility] ([facility]) [address] [place], [address], 03/13/2025 13:11:01 03/12/20 25 03/13/2025 COMP. METAB OLIC PANEL (14) albumin 4.5 g/dL 3.8-4. 9 normal Not Available [facility] ([facility]) [address] [place], [address], 03/13/2025 13:11:01 03/12/20 25 03/13/2025 COMP. METAB OLIC PANEL (14) globulin, total 2.6 g/dL 1.5-4. 5 Not Available [facility] ([facility]) [address] [place], [address], 03/13/2025 13:11:01 03/12/20 25 03/13/2025 COMP. METAB OLIC PANEL (14) bilirubin, total 0.3 mg/dL 0.0-1. 2 normal Not Available [facility] ([facility]) [address] [place], [address], 03/13/2025 13:11:01 03/12/20 25 03/13/2025 COMP. METAB OLIC PANEL (14) alkaline phosphatase 144 IU/L 44-121 above high normal Not Available [facility] ([facility]) [address] [place], [address], 03/13/2025 13:11:01 03/12/20 25 03/13/2025 COMP. METAB OLIC PANEL (14) AST (SGOT) 19 IU/L 0-40 normal Not Available [facility] ([facility]) [address] [place], [address], 03/13/2025 13:11:01 03/12/20 25 03/13/2025 COMP. METAB OLIC PANEL (14) ALT (SGPT) 14 IU/L 0-32 normal Not Available [facility] ([facility]) [address] [facility] [place], [address], 03/13/2025 13:11:01 03/12/20 25 03/13/2025 LIPID PANEL cholesterol, total 230 mg/dL 100-19 9 above high normal Not Available [facility] ([facility]) [address] [facility] [place], [address], 03/13/2025 13:11:02 03/12/20 25 03/13/2025 LIPID PANEL triglyceride s 291 mg/dL 0-149 above high normal Not Available [facility] ([facility]) [address] [place], [address], 03/13/2025 13:11:02 03/12/20 25 03/13/2025 LIPID PANEL HDL cholesterol 43 mg/dL >39 normal Not Available [facility]) [address] [place], [address], 03/13/2025 13:11:02 03/12/20 25 03/13/2025 LIPID PANEL VLDL cholesterol tay 52 mg/dL 5-40 above high normal Not Available [facility] ([facility]) [address] [place], [address], 03/13/2025 13:11:02 03/12/20 25 03/13/2025 LIPID PANEL LDL chol calc ([facility]) 135 mg/dL 0-99 above high normal Not Available [facility] ([facility]) [address] [place], [address], 03/13/2025 13:11:02 03/12/20 25 03/13/2025 LIPID PANEL LDL calc comment: THERMITE WELDER Not Available [facility] ([facility]) [address] [place], [address], 03/13/2025 13:11:02 03/12/2003/13/2025 HEMOG LOBIN A1C hemoglobin A1C 5.7 % 4.8-5. 6 above high normal Predi abete s: 5.7 - 6.4 Diabe russell: >6.4 Glyce migue contr ol for adult s with diabe russell: <7.0 Not Available [facility] ([facility]) [address] [place], [address], 03/13/2025 13:11:03 03/12/20 25 03/13/2025 VITAM IN D, 25-HY DROXY vitamin D, 25-hydroxy 29.6 NG/mL 30.0-1 00.0 below low normal Vitam in D defic iency has been defin ed by the Insti tute of Medic ine and an Endoc rine Socie ty pract ice guide line as a level of serum 25-OH vitam in D less than 20 ng/mL (1,2) . The Endoc rine Socie ty went on to furth er defin e vitam in D insuf ficie ncy as a level betwe en 21 and 29 ng/mL (2). 1. IOM (Inst itute of Medic ine). 2009. Dieta ry refer ence pamela es for calci um and D. Brad topete DC: [facility] . 2. Aleksey gotti MF, Veda ey [place], Bartolo off-F errar i MAI, et al. Evalu ation , treat ment, and preve ntion of vitam in D defic iency : an Endoc rine Socie ty clini tay pract ice guide line. JCEM. 2010; 96(7) :1911 -30. Not Available [facility] ([facility]) [address] [place], [address], 03/13/2025 13:11:04 04/09/20 25 04/10/2025 TSH+F REE T4 TSH 0.159 uIU/m L 0.450- 4.500 below low normal Not Available [facility] ([facility]) [address] [facility], [place], [address], 04/10/2025 13:07:47 04/09/20 25 04/10/2025 TSH+F REE T4 T4,free(dire ct) 1.59 NG/dL 0.82-1 .77 normal Not Available [facility] ([facility]) [address] [place], [address], 04/10/2025 13:07:47 04/09/20 25 04/10/2025 CBC WITH DIFFE RENTI AL/PL ATELE T WBC 7.3 x10e3 /uL 3.4-10 .8 normal Not Available [facility] ([facility]) [address] [place], [address], 04/10/2025 13:07:47 04/09/20 25 04/10/2025 CBC WITH DIFFE RENTI AL/PL ATELE T RBC 4.16 x10e6 /uL 3.77-5 .28 normal Not Available [facility] ([facility]) [address] [place], [address], 04/10/2025 13:07:47 04/09/20 25 04/10/2025 CBC WITH DIFFE RENTI AL/PL ATELE T hemoglobin 11.7 g/dL 11.1-1 5.9 normal Not Available [facility] ([facility]) [address] [place], [address], 04/10/2025 13:07:47 04/09/20 25 04/10/2025 CBC WITH DIFFE RENTI AL/PL ATELE T hematocrit 37.5 % 34.0-4 6.6 normal Not Available [facility] ([facility]) [address] [place], [address], 04/10/2025 13:07:47 04/09/20 25 04/10/2025 CBC WITH DIFFE RENTI AL/PL ATELE T MCV 90 fL 79-97 normal Not Available [facility] ([facility]) [address] [facility], [place], [address], 04/10/2025 13:07:47 04/09/20 25 04/10/2025 CBC WITH DIFFE RENTI AL/PL ATELE T MCH 28.1 pg 26.6-3 3.0 normal Not Available [facility] ([facility]) [address] [place], [address], 04/10/2025 13:07:47 04/09/20 25 04/10/2025 CBC WITH DIFFE RENTI AL/PL ATELE T MCHC 31.2 g/dL 31.5-3 5.7 below low normal Not Available [facility] ([facility]) [address] [facility], [place], [address], 04/10/2025 13:07:47 04/09/20 25 04/10/2025 CBC WITH DIFFE RENTI AL/PL ATELE T RDW 14.5 % 11.7-1 5.4 Not Available [facility] ([facility]) [address] [place], [address], 04/10/2025 13:07:47 04/09/20 25 04/10/2025 CBC WITH DIFFE RENTI AL/PL ATELE T platelets 342 x10e3 /uL 150-45 0 normal Not Available [facility] ([facility]) [address] [place], [address], 04/10/2025 13:07:47 04/09/20 25 04/10/2025 CBC WITH DIFFE RENTI AL/PL ATELE T neutrophils 61 % not estab. normal Not Available [facility] ([facility]) [address] [place], [address], 04/10/2025 13:07:47 04/09/20 25 04/10/2025 CBC WITH DIFFE RENTI AL/PL ATELE T lymphs 30 % not estab. normal Not Available [facility] ([facility]) [address] [place], [address], 04/10/2025 13:07:47 04/09/20 25 04/10/2025 CBC WITH DIFFE RENTI AL/PL ATELE T monocytes 6 % not estab. normal Not Available [facility] ([facility]) [address] [place], [address], 04/10/2025 13:07:47 04/09/20 25 04/10/2025 CBC WITH DIFFE RENTI AL/PL ATELE T eos 2 % not estab. normal Not Available [facility] ([facility]) [address] [place], [address], 04/10/2025 13:07:47 04/09/20 25 04/10/2025 CBC WITH DIFFE RENTI AL/PL ATELE T basos 1 % not estab. normal Not Available [facility] ([facility]) [address] [place], [address], 04/10/2025 13:07:47 04/09/20 25 04/10/2025 CBC WITH DIFFE RENTI AL/PL ATELE T immature cells THERMITE WELDER Not Available [facility] ([facility]) [address] [place], [address], 04/10/2025 13:07:47 04/09/20 25 04/10/2025 CBC WITH DIFFE RENTI AL/PL ATELE T neutrophils (absolute) 4.4 x10e3 /uL 1.4-7. 0 normal Not Available [facility] ([facility]) [address] [place], [address], 04/10/2025 13:07:47 04/09/20 25 04/10/2025 CBC WITH DIFFE RENTI AL/PL ATELE T lymphs (absolute) 2.2 x10e3 /uL 0.7-3. 1 normal Not Available [facility] ([facility]) [address] [place], [address], 04/10/2025 13:07:47 04/09/20 25 04/10/2025 CBC WITH DIFFE RENTI AL/PL ATELE T monocytes(ab solute) 0.4 x10e3 /uL 0.1-0. 9 normal Not Available [facility] ([facility]) [address] [facility], [place], [address], 04/10/2025 13:07:47 04/09/20 25 04/10/2025 CBC WITH DIFFE RENTI AL/PL ATELE T eos (absolute) 0.2 x10e3 /uL 0.0-0. 4 normal Not Available [facility] ([facility]) [address] [place], [address], 04/10/2025 13:07:47 04/09/20 25 04/10/2025 CBC WITH DIFFE RENTI AL/PL ATELE T baso (absolute) 0.1 x10e3 /uL 0.0-0. 2 normal Not Available [facility] ([facility]) [address] [place], [address], 04/10/2025 13:07:47 04/09/20 25 04/10/2025 CBC WITH DIFFE RENTI AL/PL ATELE T immature granulocytes 0 % not estab. Not Available [facility] ([facility]) [address] [place], [address], 04/10/2025 13:07:47 04/09/20 25 04/10/2025 CBC WITH DIFFE RENTI AL/PL ATELE T immature grans (abs) 0.0 x10e3 /uL 0.0-0. 1 Not Available [facility] ([facility]) [address] [place], [address], 04/10/2025 13:07:47 04/09/20 25 04/10/2025 CBC WITH DIFFE RENTI AL/PL ATELE T NRBC THERMITE WELDER Not Available [facility] ([facility]) [address] [place], [address], 04/10/2025 13:07:47 04/09/20 25 04/10/2025 CBC WITH DIFFE ADENIKE AL/ALIE Felipe hematology comments: THERMITE WELDER Not Available [facility] ([facility]) [address] [facility], [place], [address], 04/10/2025 13:07:47 04/09/20 25 04/10/2025 COMP. METAB OLIC PANEL (14) glucose 78 mg/dL 70-99 normal Not Available [facility] ([facility]) [address] [facility], [place], [address], 04/10/2025 13:07:48 04/09/20 25 04/10/2025 COMP. METAB OLIC PANEL (14) BUN 16 mg/dL 6-24 normal Not Available [facility] ([facility]) [address] [facility], [place], [address], 04/10/2025 13:07:48 04/09/20 25 04/10/2025 COMP. METAB OLIC PANEL (14) creatinine 0.82 mg/dL 0.57-1 .00 normal Not Available [facility] ([facility]) [address] [facility], [place], [address], 04/10/2025 13:07:48 04/09/20 25 04/10/2025 COMP. METAB OLIC PANEL (14) eGFR 85 mL/mi n/1.7 3 >59 normal Not Available [facility] ([facility]) [address] [facility], [place], [address], 04/10/2025 13:07:48 04/09/20 25 04/10/2025 COMP. METAB OLIC PANEL (14) BUN/creatini ne ratio 20 9-23 normal Not Available [facility] ([facility]) [address] [facility], [place], [address], 04/10/2025 13:07:48 04/09/20 25 04/10/2025 COMP. METAB OLIC PANEL (14) sodium 136 mmol/ L 134-14 4 normal Not Available [facility] ([facility]) [address] [facility] [place], [address], 04/10/2025 13:07:48 04/09/20 25 04/10/2025 COMP. METAB OLIC PANEL (14) potassium 4.4 mmol/ L 3.5-5. 2 normal Not Available [facility] ([facility]) [address] [facility] [place], [address], 04/10/2025 13:07:48 04/09/20 25 04/10/2025 COMP. METAB OLIC PANEL (14) chloride 100 mmol/ L 96-106 normal Not Available [facility] ([facility]) [address] [facility], [place], [address], 04/10/2025 13:07:48 04/09/20 25 04/10/2025 COMP. METAB OLIC PANEL (14) carbon dioxide, total 21 mmol/ L 20-29 normal Not Available [facility] ([facility]) [address] [place], [address], 04/10/2025 13:07:48 04/09/20 25 04/10/2025 COMP. METAB OLIC PANEL (14) calcium 9.9 mg/dL 8.7-10 .2 normal Not Available [facility] ([facility]) [address] [place], [address], 04/10/2025 13:07:48 04/09/20 25 04/10/2025 COMP. METAB OLIC PANEL (14) protein, total 6.7 g/dL 6.0-8. 5 normal Not Available [facility] ([facility]) [address] [place], [address], 04/10/2025 13:07:48 04/09/20 25 04/10/2025 COMP. METAB OLIC PANEL (14) albumin 4.2 g/dL 3.8-4. 9 normal Not Available [facility] ([facility]) [address] [facility] [place], [address], 04/10/2025 13:07:48 04/09/20 25 04/10/2025 COMP. METAB OLIC PANEL (14) globulin, total 2.5 g/dL 1.5-4. 5 Not Available [facility] ([facility]) [address] [facility] [place], [address], 04/10/2025 13:07:48 04/09/20 25 04/10/2025 COMP. METAB OLIC PANEL (14) bilirubin, total 0.2 mg/dL 0.0-1. 2 normal Not Available [facility] ([facility]) [address] [facility] [place], [address], 04/10/2025 13:07:48 04/09/20 25 04/10/2025 COMP. METAB OLIC PANEL (14) alkaline phosphatase 162 IU/L 44-121 above high normal Not Available [facility] ([facility]) [address] [facility] [place], [address], 04/10/2025 13:07:48 04/09/20 25 04/10/2025 COMP. METAB OLIC PANEL (14) AST (SGOT) 13 IU/L 0-40 normal Not Available [facility] ([facility]) [address] [facility] [place], [address], 04/10/2025 13:07:48 04/09/20 25 04/10/2025 COMP. METAB OLIC PANEL (14) ALT (SGPT) 9 IU/L 0-32 normal Not Available [facility] ([facility]) [address] [facility] [place], [address], 04/10/2025 13:07:48 04/09/20 25 04/10/2025 URINA LYSIS , COMPL ETE specific gravity 1.019 1.005- 1.030 normal Not Available [facility] ([facility]) [address] [facility], [place], [address], 04/10/2025 13:07:48 04/09/20 25 04/10/2025 URINA LYSIS , COMPL ETE pH 5.5 5.0-7. 5 normal Not Available [facility] ([facility]) [address] [facility], [place], [address], 04/10/2025 13:07:48 04/09/20 25 04/10/2025 URINA LYSIS , COMPL ETE urine-color Yellow yellow Not Available [facility] ([facility]) [address] [facility], [place], [address], 04/10/2025 13:07:48 04/09/20 25 04/10/2025 URINA LYSIS , COMPL ETE appearance Clear clear Not Available [facility] ([facility]) [address] [place], [address], 04/10/2025 13:07:48 04/09/20 25 04/10/2025 URINA LYSIS , COMPL ETE WBC esterase Negati ve negati ve Not Available [facility] ([facility]) [address] [facility], [place], [address], 04/10/2025 13:07:48 04/09/20 25 04/10/2025 URINA LYSIS , COMPL ETE protein Negati ve negati ve/tra ce Not Available [facility] ([facility]) [address] [place], [address], 04/10/2025 13:07:48 04/09/20 25 04/10/2025 URINA LYSIS , COMPL ETE glucose Negati ve negati ve Not Available [facility] ([facility]) [address] [place], [address], 04/10/2025 13:07:48 04/09/20 25 04/10/2025 URINA LYSIS , COMPL ETE ketones Negati ve negati ve Not Available [facility] ([facility]) [address] [place], [address], 04/10/2025 13:07:48 04/09/20 25 04/10/2025 URINA LYSIS , COMPL ETE occult blood Negati ve negati ve Not Available [facility] ([facility]) [address] [place], [address], 04/10/2025 13:07:48 04/09/20 25 04/10/2025 URINA LYSIS , COMPL ETE bilirubin Negati ve negati ve Not Available [facility] ([facility]) [address] [place], [address], 04/10/2025 13:07:48 04/09/20 25 04/10/2025 URINA LYSIS , COMPL ETE urobilinogen ,semi-qn 0.2 mg/dL 0.2-1. 0 normal Not Available [facility] ([facility]) [address] [facility], [place], [address], 04/10/2025 13:07:48 04/09/20 25 04/10/2025 URINA LYSIS , COMPL ETE nitrite, urine Negati ve negati ve Not Available [facility] ([facility]) [address] [place], [address], 04/10/2025 13:07:48 04/09/20 25 04/10/2025 URINA LYSIS , COMPL ETE microscopic examination Commen t Micro scopi c follo ws if indic ated. Not Available [facility] ([facility]) [address] [place], [address], 04/10/2025 13:07:48 04/09/20 25 04/10/2025 URINA LYSIS , COMPL ETE microscopic examination See below: Micro scopi c was indic ated and was perfo rmed. Not Available [facility] ([facility]) [address] [place], [address], 04/10/2025 13:07:48 04/09/20 25 04/10/2025 URINA LYSIS , COMPL ETE WBC 0-5 /hpf 0 - 5 Not Available [facility] ([facility]) [address] [facility], [place], [address], 04/10/2025 13:07:48 04/09/20 25 04/10/2025 URINA LYSIS , COMPL ETE RBC None seen /hpf 0 - 2 Not Available [facility] ([facility]) [address] [facility], [place], [address], 04/10/2025 13:07:48 04/09/20 25 04/10/2025 URINA LYSIS , COMPL ETE epithelial cells (non renal) >10 /hpf 0 - 10 abnormal Not Available [facility] ([facility]) [address] [facility], [place], [address], 04/10/2025 13:07:48 04/09/20 25 04/10/2025 URINA LYSIS , COMPL ETE epithelial cells (renal) THERMITE WELDER Not Available [facility] ([facility]) [address] [facility], [place], [address], 04/10/2025 13:07:48 04/09/20 25 04/10/2025 URINA LYSIS , COMPL ETE casts None seen /lpf none seen Not Available [facility] ([facility]) [address] [facility], [place], [address], 04/10/2025 13:07:48 04/09/20 25 04/10/2025 URINA LYSIS , COMPL ETE cast type THERMITE WELDER Not Available [facility] ([facility]) [address] [facility], [place], [address], 04/10/2025 13:07:48 04/09/20 25 04/10/2025 URINA LYSIS , COMPL ETE crystals THERMITE WELDER Not Available [facility] ([facility]) [address] [place], [address], 04/10/2025 13:07:48 04/09/20 25 04/10/2025 URINA LYSIS , COMPL ETE crystal type THERMITE WELDER Not Available [facility] ([facility]) [address] [facility], [place], [address], 04/10/2025 13:07:48 04/09/20 25 04/10/2025 URINA LYSIS , COMPL ETE mucus threads THERMITE WELDER Not Available [facility] ([facility]) [address] [place], [address], 04/10/2025 13:07:48 04/09/20 25 04/10/2025 URINA LYSIS , COMPL ETE bacteria Few none seen/f ew Not Available [facility] ([facility]) [address] [place], [address], 04/10/2025 13:07:48 04/09/20 25 04/10/2025 URINA LYSIS , COMPL ETE yeast THERMITE WELDER Not Available [facility] ([facility]) [address] [place], [address], 04/10/2025 13:07:48 04/09/20 25 04/10/2025 URINA LYSIS , COMPL ETE trichomonas THERMITE WELDER Not Available [facility] ([facility]) [address] [place], [address], 04/10/2025 13:07:48 04/09/20 25 04/10/2025 URINA LYSIS , COMPL ETE comment THERMITE WELDER Not Available [facility] ([facility]) [address] [place], [address], 04/10/2025 13:07:48 05/07/20 25 05/08/2025 TSH+F REE T4 TSH 1.020 uIU/m L 0.450- 4.500 normal Not Available [facility] ([facility]) [address] [place], [address], 05/08/2025 04:06:37 05/07/20 25 05/08/2025 TSH+F REE T4 T4,free(dire ct) 1.56 NG/dL 0.82-1 .77 normal Not Available [facility] ([facility]) [address] [place], [address], 05/08/2025 04:06:37 05/07/20 25 05/08/2025 IRON AND TIBC iron bind.cap.(TI BC) 456 ug/dL 250-45 0 above high normal Not Available [facility] ([facility]) [address] [place], [address], 05/08/2025 04:06:38 05/07/20 25 05/08/2025 IRON AND TIBC UIBC 357 ug/dL 131-42 5 normal Not Available [facility] ([facility]) [address] [place], [address], 05/08/2025 04:06:38 05/07/20 25 05/08/2025 IRON AND TIBC iron 99 ug/dL 27-159 normal Not Available [facility] ([facility]) [address] [place], [address], 05/08/2025 04:06:38 05/07/20 25 05/08/2025 IRON AND TIBC iron saturation 22 % 15-55 normal Not Available [facility] ([facility]) [address] [place], [address], 05/08/2025 04:06:38 05/18/20 25 05/18/2025 drug scree n, urine AMP negati ve Not Available [address], [address], 05/07/2025 10:37:12 05/18/20 25 05/18/2025 drug scree n, urine BAR negati ve Not Available [address], [address], 05/07/2025 10:37:12 05/18/20 25 05/18/2025 drug scree n, urine BUP negati ve Not Available [address], [address], 05/07/2025 10:37:12 05/18/20 25 05/18/2025 drug scree n, urine BZO negati ve Not Available [address], [address], 05/07/2025 10:37:12 05/18/20 25 05/18/2025 drug scree n, urine KEVIN negati ve Not Available [address], [address], 05/07/2025 10:37:12 05/18/20 25 05/18/2025 drug scree n, urine FTY negati ve Not Available [address], [address], 05/07/2025 10:37:12 05/18/20 25 05/18/2025 drug scree n, urine MDMA negati ve Not Available [address], [address], 05/07/2025 10:37:12 05/18/20 25 05/18/2025 drug scree n, urine MET negati ve Not Available [address], [address], 05/07/2025 10:37:12 05/18/20 25 05/18/2025 drug scree n, urine MOP negati ve Not Available [address], [address], 05/07/2025 10:37:12 05/18/20 25 05/18/2025 drug scree n, urine MTD negati ve Not Available [address], [address], 05/07/2025 10:37:12 05/18/20 25 05/18/2025 drug scree n, urine OXY negati ve Not Available [address], [address], 05/07/2025 10:37:12 05/18/20 25 05/18/2025 drug scree n, urine PCP negati ve Not Available [address], [address], 05/07/2025 10:37:12 05/18/20 25 05/18/2025 drug scree n, urine TCA negati ve Not Available [address], [address], 05/07/2025 10:37:12 05/18/20 25 05/18/2025 drug scree n, urine THC negati ve Not Available [address], [address], 05/07/2025 10:37:12 06/09/20 25 06/10/2025 TSH+F REE T4 TSH 2.960 uIU/m L 0.450- 4.500 normal Not Available [facility] ([facility]) [address] [facility], [place], [address], 06/10/2025 13:07:38 06/09/20 25 06/10/2025 TSH+F REE T4 T4,free(dire ct) 1.31 NG/dL 0.82-1 .77 normal Not Available [facility] ([facility]) [address] [facility], [place], [address], 06/10/2025 13:07:38 06/09/20 25 06/10/2025 CBC WITH DIFFE RENTI AL/PL ATELE T WBC 7.5 x10e3 /uL 3.4-10 .8 normal Not Available [facility] ([facility]) [address] [place], [address], 06/10/2025 13:07:39 06/09/20 25 06/10/2025 CBC WITH DIFFE RENTI AL/PL ATELE T RBC 4.69 x10e6 /uL 3.77-5 .28 normal Not Available [facility] ([facility]) [address] [facility], [place], [address], 06/10/2025 13:07:39 06/09/20 25 06/10/2025 CBC WITH DIFFE RENTI AL/PL ATELE T hemoglobin 13.2 g/dL 11.1-1 5.9 normal Not Available [facility] ([facility]) [address] [place], [address], 06/10/2025 13:07:39 06/09/20 25 06/10/2025 CBC WITH DIFFE RENTI AL/PL ATELE T hematocrit 41.8 % 34.0-4 6.6 normal Not Available [facility] ([facility]) [address] [place], [address], 06/10/2025 13:07:39 06/09/20 25 06/10/2025 CBC WITH DIFFE RENTI AL/PL ATELE T MCV 89 fL 79-97 normal Not Available [facility] ([facility]) [address] [place], [address], 06/10/2025 13:07:39 06/09/20 25 06/10/2025 CBC WITH DIFFE RENTI AL/PL ATELE T MCH 28.1 pg 26.6-3 3.0 normal Not Available [facility] ([facility]) [address] [facility], [place], [address], 06/10/2025 13:07:39 06/09/20 25 06/10/2025 CBC WITH DIFFE RENTI AL/PL ATELE T MCHC 31.6 g/dL 31.5-3 5.7 normal Not Available [facility] ([facility]) [address] [facility], [place], [address], 06/10/2025 13:07:39 06/09/20 25 06/10/2025 CBC WITH DIFFE RENTI AL/PL ATELE T RDW 13.8 % 11.7-1 5.4 Not Available [facility] ([facility]) [address] [facility], [place], [address], 06/10/2025 13:07:39 06/09/20 25 06/10/2025 CBC WITH DIFFE RENTI AL/PL ATELE T platelets 303 x10e3 /uL 150-45 0 normal Not Available [facility] ([facility]) [address] [facility], [place], [address], 06/10/2025 13:07:39 06/09/20 25 06/10/2025 CBC WITH DIFFE RENTI AL/PL ATELE T neutrophils 60 % not estab. normal Not Available [facility] ([facility]) [address] [facility], [place], [address], 06/10/2025 13:07:39 06/09/20 25 06/10/2025 CBC WITH DIFFE RENTI AL/PL ATELE T lymphs 30 % not estab. normal Not Available [facility] ([facility]) [address] [place], [address], 06/10/2025 13:07:39 06/09/20 25 06/10/2025 CBC WITH DIFFE RENTI AL/PL ATELE T monocytes 7 % not estab. normal Not Available [facility] ([facility]) [address] [facility], [place], [address], 06/10/2025 13:07:39 06/09/20 25 06/10/2025 CBC WITH DIFFE RENTI AL/PL ATELE T eos 2 % not estab. normal Not Available [facility] ([facility]) [address] [facility], [place], [address], 06/10/2025 13:07:39 06/09/20 25 06/10/2025 CBC WITH DIFFE RENTI AL/PL ATELE T basos 1 % not estab. normal Not Available [facility] ([facility]) [address] [facility], [place], [address], 06/10/2025 13:07:39 06/09/20 25 06/10/2025 CBC WITH DIFFE RENTI AL/PL ATELE T immature cells THERMITE WELDER Not Available [facility] ([facility]) [address] [place], [address], 06/10/2025 13:07:39 06/09/20 25 06/10/2025 CBC WITH DIFFE RENTI AL/PL ATELE T neutrophils (absolute) 4.5 x10e3 /uL 1.4-7. 0 normal Not Available [facility] ([facility]) [address] [place], [address], 06/10/2025 13:07:39 06/09/20 25 06/10/2025 CBC WITH DIFFE RENTI AL/PL ATELE T lymphs (absolute) 2.2 x10e3 /uL 0.7-3. 1 normal Not Available [facility] ([facility]) [address] [place], [address], 06/10/2025 13:07:39 06/09/20 25 06/10/2025 CBC WITH DIFFE RENTI AL/PL ATELE T monocytes(ab solute) 0.5 x10e3 /uL 0.1-0. 9 normal Not Available [facility] ([facility]) [address] [facility], [place], [address], 06/10/2025 13:07:39 06/09/20 25 06/10/2025 CBC WITH DIFFE RENTI AL/PL ATELE T eos (absolute) 0.2 x10e3 /uL 0.0-0. 4 normal Not Available [facility] ([facility]) [address] [facility], [place], [address], 06/10/2025 13:07:39 06/09/20 25 06/10/2025 CBC WITH DIFFE RENTI AL/PL ATELE T baso (absolute) 0.1 x10e3 /uL 0.0-0. 2 normal Not Available [facility] ([facility]) [address] [facility], [place], [address], 06/10/2025 13:07:39 06/09/20 25 06/10/2025 CBC WITH DIFFE RENTI AL/PL ATELE T immature granulocytes 0 % not estab. Not Available [facility] ([facility]) [address] [facility], [place], [address], 06/10/2025 13:07:39 06/09/20 25 06/10/2025 CBC WITH DIFFE RENTI AL/PL ATELE T immature grans (abs) 0.0 x10e3 /uL 0.0-0. 1 Not Available [facility] ([facility]) [address] [facility], [place], [address], 06/10/2025 13:07:39 06/09/20 25 06/10/2025 CBC WITH DIFFE RENTI AL/PL ATELE T NRBC THERMITE WELDER Not Available [facility] ([facility]) [address] [place], [address], 06/10/2025 13:07:39 06/09/20 25 06/10/2025 CBC WITH DIFFE RENTI AL/PL ATELE T hematology comments: THERMITE WELDER Not Available [facility] ([facility]) [address] [place], [address], 06/10/2025 13:07:39 06/09/20 25 06/10/2025 COMP. METAB OLIC PANEL (14) glucose 84 mg/dL 70-99 normal Not Available [facility] ([facility]) [address] [facility], [place], [address], 06/10/2025 13:07:39 06/09/20 25 06/10/2025 COMP. METAB OLIC PANEL (14) BUN 13 mg/dL 6-24 normal Not Available [facility] ([facility]) [address] [facility] [place], [address], 06/10/2025 13:07:39 06/09/20 25 06/10/2025 COMP. METAB OLIC PANEL (14) creatinine 0.89 mg/dL 0.57-1 .00 normal Not Available [facility] ([facility]) [address] [facility], [place], [address], 06/10/2025 13:07:39 06/09/20 25 06/10/2025 COMP. METAB OLIC PANEL (14) eGFR 77 mL/mi n/1.7 3 >59 normal Not Available [facility] ([facility]) [address] [facility], [place], [address], 06/10/2025 13:07:39 06/09/20 25 06/10/2025 COMP. METAB OLIC PANEL (14) BUN/creatini ne ratio 15 9-23 normal Not Available [facility] ([facility]) [address] [facility], [place], [address], 06/10/2025 13:07:39 06/09/20 25 06/10/2025 COMP. METAB OLIC PANEL (14) sodium 138 mmol/ L 134-14 4 normal Not Available [facility] ([facility]) [address] [facility] [place], [address], 06/10/2025 13:07:39 06/09/20 25 06/10/2025 COMP. METAB OLIC PANEL (14) potassium 4.0 mmol/ L 3.5-5. 2 normal Not Available [facility] ([facility]) [address] [facility], [place], [address], 06/10/2025 13:07:39 06/09/20 25 06/10/2025 COMP. METAB OLIC PANEL (14) chloride 100 mmol/ L 96-106 normal Not Available [facility] ([facility]) [address] [facility], [place], [address], 06/10/2025 13:07:39 06/09/20 25 06/10/2025 COMP. METAB OLIC PANEL (14) carbon dioxide, total 22 mmol/ L 20-29 normal Not Available [facility] ([facility]) [address] [facility], [place], [address], 06/10/2025 13:07:39 06/09/20 25 06/10/2025 COMP. METAB OLIC PANEL (14) calcium 10.0 mg/dL 8.7-10 .2 normal Not Available [facility] ([facility]) [address] [place], [address], 06/10/2025 13:07:39 06/09/20 25 06/10/2025 COMP. METAB OLIC PANEL (14) protein, total 7.6 g/dL 6.0-8. 5 normal Not Available [facility] ([facility]) [address] [place], [address], 06/10/2025 13:07:39 06/09/20 25 06/10/2025 COMP. METAB OLIC PANEL (14) albumin 4.6 g/dL 3.8-4. 9 normal Not Available [facility] ([facility]) [address] [facility], [place], [address], 06/10/2025 13:07:39 06/09/20 25 06/10/2025 COMP. METAB OLIC PANEL (14) globulin, total 3.0 g/dL 1.5-4. 5 Not Available [facility] ([facility]) [address] [place], [address], 06/10/2025 13:07:39 06/09/20 25 06/10/2025 COMP. METAB OLIC PANEL (14) bilirubin, total 0.4 mg/dL 0.0-1. 2 normal Not Available [facility] ([facility]) [address] [place], [address], 06/10/2025 13:07:39 06/09/20 25 06/10/2025 COMP. METAB OLIC PANEL (14) alkaline phosphatase 166 IU/L 44-121 above high normal Not Available [facility] ([facility]) [address] [place], [address], 06/10/2025 13:07:39 06/09/20 25 06/10/2025 COMP. METAB OLIC PANEL (14) AST (SGOT) 22 IU/L 0-40 normal Not Available [facility] ([facility]) [address] [place], [address], 06/10/2025 13:07:39 06/09/20 25 06/10/2025 COMP. METAB OLIC PANEL (14) ALT (SGPT) 17 IU/L 0-32 normal Not Available [facility] ([facility]) [address] [place], [address], 06/10/2025 13:07:39 06/09/20 25 06/10/2025 HEMOG LOBIN A1C hemoglobin A1C 5.5 % 4.8-5. 6 normal Predi abete s: 5.7 - 6.4 Diabe russell: >6.4 Glyce migue contr ol for adult s with diabe russell: <7.0 Not Available [facility] ([facility]) [address] [place], [address], 06/10/2025 13:07:40 06/09/20 25 06/10/2025 VITAM IN D, 25-HY DROXY vitamin D, 25-hydroxy 26.5 NG/mL 30.0-1 00.0 below low normal Vitam in D defic iency has been defin ed by the Insti tute of Medic ine and an Endoc rine Socie ty pract ice guide line as a level of serum 25-OH vitam in D less than 20 ng/mL (1,2) . The Endoc rine Socie ty went on to furth er defin e vitam in D insuf ficie ncy as a level betwe en 21 and 29 ng/mL (2). 1. IOM (Inst itute of Medic ine). 2010. Yazana ry refer moshee pamela es for calci um and D. Brad topete [place]: [facility] . 2. Aleksey gotti MF, Veda rowell [place], Bartolo off-F errar i MAI, et al. Evalu ation , treat ment, and preve ntion of vitam in D defic iency : an Endoc rine Socie ty clini tay pract ice guide line. JCEM. 2010; 96(7) :1911 -30. Not Available [facility] ([facility]) [address] [place], [address], 06/10/2025 13:07:40 06/09/20 25 06/10/2025 VITAM IN B12 vitamin B12 579 pg/mL 232-12 45 normal Not Available [facility] ([facility]) [address] [place], [address], 06/10/2025 13:07:40 07/17/2007/18/2025 TSH+F REE T4 TSH 4.010 uIU/m L 0.450- 4.500 normal Not Available [facility] ([facility]) [address] [place], [address], 07/19/2025 00:06:26 07/17/20 25 07/18/2025 TSH+F REE T4 T4,free(dire ct) 1.31 NG/dL 0.82-1 .77 normal Not Available [facility] ([facility]) [address] [place], [address], 07/19/2025 00:06:26 07/17/2007/18/2025 CBC WITH DIFFE RENTI AL/PL ATELE T WBC 7.4 x10e3 /uL 3.4-10 .8 normal Not Available [facility] ([facility]) [address] [place], [address], 07/19/2025 00:06:27 07/17/2007/18/2025 CBC WITH DIFFE RENTI AL/PL ATELE T RBC 4.60 x10e6 /uL 3.77-5 .28 normal Not Available [facility] ([facility]) [address] [place], [address], 07/19/2025 00:06:27 07/17/2007/18/2025 CBC WITH DIFFE RENTI AL/PL ATELE T hemoglobin 13.2 g/dL 11.1-1 5.9 normal Not Available [facility] ([facility]) [address] [place], [address], 07/19/2025 00:06:27 07/17/2007/18/2025 CBC WITH DIFFE RENTI AL/PL ATELE T hematocrit 41.4 % 34.0-4 6.6 normal Not Available [facility] ([facility]) [address] [place], [address], 07/19/2025 00:06:27 07/17/2007/18/2025 CBC WITH DIFFE RENTI AL/PL ATELE T MCV 90 fL 79-97 normal Not Available [facility] ([facility]) [address] [place], [address], 07/19/2025 00:06:27 07/17/2007/18/2025 CBC WITH DIFFE RENTI AL/PL ATELE T MCH 28.7 pg 26.6-3 3.0 normal Not Available [facility] ([facility]) [address] [place], [address], 07/19/2025 00:06:27 07/17/2007/18/2025 CBC WITH DIFFE RENTI AL/PL ATELE T MCHC 31.9 g/dL 31.5-3 5.7 normal Not Available [facility] ([facility]) [address] [facility], [place], [address], 07/19/2025 00:06:27 07/17/2007/18/2025 CBC WITH DIFFE RENTI AL/PL ATELE T RDW 13.7 % 11.7-1 5.4 Not Available [facility] ([facility]) [address] [place], [address], 07/19/2025 00:06:27 07/17/2007/18/2025 CBC WITH DIFFE RENTI AL/PL ATELE T platelets 328 x10e3 /uL 150-45 0 normal Not Available [facility] ([facility]) [address] [place], [address], 07/19/2025 00:06:27 07/17/2007/18/2025 CBC WITH DIFFE RENTI AL/PL ATELE T neutrophils 56 % not estab. normal Not Available [facility] ([facility]) [address] [place], [address], 07/19/2025 00:06:27 07/17/2007/18/2025 CBC WITH DIFFE RENTI AL/PL ATELE T lymphs 35 % not estab. normal Not Available [facility] ([facility]) [address] [place], [address], 07/19/2025 00:06:27 07/17/2007/18/2025 CBC WITH DIFFE RENTI AL/PL ATELE T monocytes 6 % not estab. normal Not Available [facility] ([facility]) [address] [place], [address], 07/19/2025 00:06:27 07/17/2007/18/2025 CBC WITH DIFFE RENTI AL/PL ATELE T eos 2 % not estab. normal Not Available [facility] ([facility]) [address] [place], [address], 07/19/2025 00:06:27 07/17/2007/18/2025 CBC WITH DIFFE RENTI AL/PL ATELE T basos 1 % not estab. normal Not Available [facility] ([facility]) [address] [facility], [place], [address], 07/19/2025 00:06:27 07/17/2007/18/2025 CBC WITH DIFFE RENTI AL/PL ATELE T immature cells THERMITE WELDER Not Available [facility] ([facility]) [address] [place], [address], 07/19/2025 00:06:27 07/17/2007/18/2025 CBC WITH DIFFE RENTI AL/PL ATELE T neutrophils (absolute) 4.2 x10e3 /uL 1.4-7. 0 normal Not Available [facility] ([facility]) [address] [place], [address], 07/19/2025 00:06:27 07/17/2007/18/2025 CBC WITH DIFFE RENTI AL/PL ATELE T lymphs (absolute) 2.6 x10e3 /uL 0.7-3. 1 normal Not Available [facility] ([facility]) [address] [place], [address], 07/19/2025 00:06:27 07/17/2007/18/2025 CBC WITH DIFFE RENTI AL/PL ATELE T monocytes(ab solute) 0.4 x10e3 /uL 0.1-0. 9 normal Not Available [facility] ([facility]) [address] [facility], [place], [address], 07/19/2025 00:06:27 07/17/2007/18/2025 CBC WITH DIFFE RENTI AL/PL ATELE T eos (absolute) 0.2 x10e3 /uL 0.0-0. 4 normal Not Available [facility] ([facility]) [address] [facility], [place], [address], 07/19/2025 00:06:27 07/17/2007/18/2025 CBC WITH DIFFE RENTI AL/PL ATELE T baso (absolute) 0.1 x10e3 /uL 0.0-0. 2 normal Not Available [facility] ([facility]) [address] [facility], [place], [address], 07/19/2025 00:06:27 07/17/2007/18/2025 CBC WITH DIFFE RENTI AL/PL ATELE T immature granulocytes 0 % not estab. Not Available [facility] ([facility]) [address] [facility], [place], [address], 07/19/2025 00:06:27 07/17/2007/18/2025 CBC WITH DIFFE RENTI AL/PL ATELE T immature grans (abs) 0.0 x10e3 /uL 0.0-0. 1 Not Available [facility] ([facility]) [address] [place], [address], 07/19/2025 00:06:27 07/17/2007/18/2025 CBC WITH DIFFE RENTI AL/PL ATELE T NRBC THERMITE WELDER Not Available [facility] ([facility]) [address] [facility], [place], [address], 07/19/2025 00:06:27 07/17/2007/18/2025 CBC WITH DIFFE RENTI AL/PL ATELE T hematology comments: THERMITE WELDER Not Available [facility] ([facility]) [address] [facility] [place], [address], 07/19/2025 00:06:27 07/17/20 25 07/18/2025 COMP. METAB OLIC PANEL (14) glucose 87 mg/dL 70-99 normal Not Available [facility] ([facility]) [address] [facility] [place], [address], 07/19/2025 00:06:27 07/17/20 25 07/18/2025 COMP. METAB OLIC PANEL (14) BUN 21 mg/dL 6-24 normal Not Available [facility] ([facility]) [address] [facility] [place], [address], 07/19/2025 00:06:27 20 25 07/18/2025 COMP. METAB OLIC PANEL (14) creatinine 1.13 mg/dL 0.57-1 .00 above high normal Not Available [facility] ([facility]) [address] [facility] [place], [address], 07/19/2025 00:06:27 07/17/2007/18/2025 COMP. METAB OLIC PANEL (14) eGFR 58 mL/mi n/1.7 3 >59 below low normal Not Available [facility] ([facility]) [address] [facility] [place], [address], 07/19/2025 00:06:27 07/17/2007/18/2025 COMP. METAB OLIC PANEL (14) BUN/creatini ne ratio 19 9-23 normal Not Available [facility] ([facility]) [address] [facility] [place], [address], 07/19/2025 00:06:27 07/17/20 25 07/18/2025 COMP. METAB OLIC PANEL (14) sodium 138 mmol/ L 134-14 4 normal Not Available [facility] ([facility]) [address] [facility] [place], [address], 07/19/2025 00:06:27 07/17/2007/18/2025 COMP. METAB OLIC PANEL (14) potassium 4.3 mmol/ L 3.5-5. 2 normal Not Available [facility] ([facility]) [address] [place], [address], 07/19/2025 00:06:27 07/17/2007/18/2025 COMP. METAB OLIC PANEL (14) chloride 98 mmol/ L 96-106 normal Not Available [facility] ([facility]) [address] [place], [address], 07/19/2025 00:06:27 07/17/2007/18/2025 COMP. METAB OLIC PANEL (14) carbon dioxide, total 24 mmol/ L 20-29 normal Not Available [facility] ([facility]) [address] [facility] [place], [address], 07/19/2025 00:06:27 07/17/2007/18/2025 COMP. METAB OLIC PANEL (14) calcium 10.3 mg/dL 8.7-10 .2 above high normal Not Available [facility] ([facility]) [address] [place], [address], 07/19/2025 00:06:27 07/17/2007/18/2025 COMP. METAB OLIC PANEL (14) protein, total 7.6 g/dL 6.0-8. 5 normal Not Available [facility] ([facility]) [address] [facility] [place], [address], 07/19/2025 00:06:27 07/17/2007/18/2025 COMP. METAB OLIC PANEL (14) albumin 4.5 g/dL 3.8-4. 9 normal Not Available [facility] ([facility]) [address] [facility] [place], [address], 07/19/2025 00:06:27 07/17/20 25 07/18/2025 COMP. METAB OLIC PANEL (14) globulin, total 3.1 g/dL 1.5-4. 5 Not Available [facility] ([facility]) [address] [place], [address], 07/19/2025 00:06:27 07/17/2007/18/2025 COMP. METAB OLIC PANEL (14) bilirubin, total 0.4 mg/dL 0.0-1. 2 normal Not Available [facility] ([facility]) [address] [place], [address], 07/19/2025 00:06:27 07/17/2007/18/2025 COMP. METAB OLIC PANEL (14) alkaline phosphatase 149 IU/L 44-121 above high normal Eff ectiv e Septe mber 2024 Alkal ine Phosp hatas e refer ence inter carmina will be ulloa ing to: Age Male Femal e 0 - 5 days 47 - 127 47 - 127 6 - 10 days 29 - 242 29 - 242 11 - 20 days 109 - 357 109 - 357 21 - 30 days 94 - 494 94 - 494 1 - 2 month s 149 - 539 149 - 539 3 - 6 month s 131 - 452 131 - 452 7 - 11 month s 117 - 401 117 - 401 12 month s - 6 years 158 - 369 158 - 369 7 - 12 years 150 - 409 150 - 409 13 years 156 - 435 78 - 227 14 years 114 - 375 64 - 161 15 years 88 - 279 56 - 134 16 years 74 - 207 51 - 121 17 years 63 - 161 47 - 113 18 - 20 years 51 - 125 42 - 106 21 - 50 years 47 - 123 41 - 116 51 - 80 years 49 - 135 51 - 125 >80 years 48 - 129 48 - 129 Not Available [facility] ([facility]) [address] [place], [address], 07/19/2025 00:06:27 07/17/2007/18/2025 COMP. METAB OLIC PANEL (14) AST (SGOT) 19 IU/L 0-40 normal Not Available [facility] ([facility]) [address] [facility] [place], [address], 07/19/2025 00:06:27 07/17/20 25 07/18/2025 COMP. METAB OLIC PANEL (14) ALT (SGPT) 15 IU/L 0-32 normal Not Available [facility] ([facility]) [address] [facility] [place], [address], 07/19/2025 00:06:27 07/17/20 25 07/18/2025 LIPID PANEL cholesterol, total 153 mg/dL 100-19 9 normal Not Available [facility] ([facility]) [address] [facility] [place], [address], 07/19/2025 00:06:27 07/17/20 25 07/18/2025 LIPID PANEL triglyceride s 234 mg/dL 0-149 above high normal Not Available [facility] ([facility]) [address] [facility] [place], [address], 07/19/2025 00:06:27 07/17/20 25 07/18/2025 LIPID PANEL HDL cholesterol 52 mg/dL >39 normal Not Available [facility]) [address] [facility] [place], [address], 07/19/2025 00:06:27 07/17/2007/18/2025 LIPID PANEL VLDL cholesterol tay 38 mg/dL 5-40 Not Available [facility] ([facility]) [address] [facility] [place], [address], 07/19/2025 00:06:27 07/17/20 25 07/18/2025 LIPID PANEL LDL chol calc ([facility]) 63 mg/dL 0-99 Not Available [facility] ([facility]) [address] [facility] [place], [address], 07/19/2025 00:06:27 0907/18/2025 LIPID PANEL LDL calc comment: THERMITE WELDER Not Available [facility] ([facility]) [address] [facility], [place], [address], 07/19/2025 00:06:27 07/17/2007/19/2025 HIV-1 /HIV- 2 QUALI TATIV E RNA HIV-1 RNA Non Reacti ve non reacti ve Not Available [facility] ([facility]) [address] [facility], [place], [address], 07/19/2025 00:06:28 07/17/2007/19/2025 HIV-1 /HIV- 2 QUALI TATIV E RNA HIV-2 RNA Non Reacti ve non reacti ve Not Available [facility] ([facility]) [address] [facility], [place], [address], 07/19/2025 00:06:28 07/17/2007/18/2025 HCV ANTIB ALBARO RFX TO QUANT PCR HCV Ab Non Reacti ve non reacti ve Not Available [facility] ([facility]) [address] [facility], [place], [address], 07/19/2025 00:06:28 07/17/2007/18/2025 HCV ANTIB ALBARO RFX TO QUANT PCR interpretati on: Commen t Not infec jolly with HCV unles s early or acute infec tion is suspe cted (whic h may be delay ed in an immun ocomp romis ed indiv idual ), or other evide nce exist s to indic ate HCV infec tion. Not Available [facility] ([facility]) [address] [facility], [place], [address], 07/19/2025 00:06:28 07/17/2007/18/2025 HEMOG LOBIN A1C hemoglobin A1C 5.6 % 4.8-5. 6 normal Predi abete s: 5.7 - 6.4 Diabe russell: >6.4 Glyce migue contr ol for adult s with diabe russell: <7.0 Not Available [facility] ([facility]) [address] [facility], [place], [address], 07/19/2025 00:06:28 07/17/20 25 07/18/2025 VITAM IN D, 25-HY DROXY vitamin D, 25-hydroxy 55.3 NG/mL 30.0-1 00.0 Vitam in D defic iency has been defin ed by the Insti tute of Medic ine and an Endoc rine Socie ty pract ice guide line as a level of serum 25-OH vitam in D less than 20 ng/mL (1,2) . The Endoc rine Socie ty went on to furth er defin e vitam in D insuf ficie ncy as a level betwe en 21 and 29 ng/mL (2). 1. IOM (Inst itute of Medic ine). 2010. Ahmet ry refer ence pamela es for calci um and D. Brad topete DC: The Natcounts include 234 beds at the [facility] Press . 2. Aleksey gotti MF, Veda rowell [place], Bartolo off-F errar i MAI, et al. Evalu ation , treat ment, and preve ntion of vitam in D defic iency : an Endoc rine Socie ty clini aty pract ice guide line. JCEM. 2010; 96(7) :1911 -30. Not Available [facility] ([facility]) [address] [facility], [place], [address], 07/19/2025 00:06:29 10/20/2010/20/2025 XR, foot, 3 or more view No observ ation record ed. [facility] [address], [place], [address], 10/20/2025 16:27:17 10/20/20 25 10/20/2025 XR, foot, 3 or more view No observ ation record ed. [facility] [address], [place], [address], 10/20/2025 16:27:08 Result Notes None recorded. Problems Name Problem SNOMED Code Status Onset Date Resolution Date Notes Provider Name and Address Organization Details Recorded Time Hypothyroi dism 38104970 Active Cristin Jenkins null, [place] - [facility] 12:01:05 Bone spur of left foot 8493788621736 08 Active Cristin Jenkins null, [place] - [facility] 2 12:01:59 Myocardial infarction 72336655 Active 2020 Cristin Jenkins null, [place] - [facility] 2 12:00:41 Vitamin D deficiency 24284709 Active 2021 Julio Cesar Dutton, [employer] [address], [place], [address] , [place] - [facility] 2 13:57:54 Hypertensi ve disorder 78530826 Active 2022 Julio Cesar Dutton, [employer] [address], [place], [address] , [place] - [facility] 4 15:45:40 Hyperchole sterolemia 91382439 Active 2022 Julio Cesar Dutton, [employer] [address], [place], [address] , [place] - [facility] 4 15:45:35 Prediabete s 821830791 Active 2023 Julio Cesar Dutton, [employer] [address], [place], [address] , [place] - [facility] 4 09:37:35 Problem Notes None recorded. Procedures Surgical History Date Name Laterality Status Provider Name and Address Organization Details Recorded Time 09/18/20 25 Advance Care Planning completed Cristin Jenkins [place] [...] 01/02/2023 16:35:43 repair of elbow completed Jade Stears [place] - [facility] 01/02/2023 16:35:36 Cancer Surgery [...] Name and Address Organization Details Recorded Time 581002 Ceclor medicatio n rash moderate high 06/29/202283459 5 RxNorm Cristin Alice null, [place] - [facility] 2 13:16:21 327783 Cymbalta medicatio n rash Not available high 06/29/2022 80335 4 RxNorm Cristin [place] null, [place] - [facility] 2 13:16:46 712405 Cipro medicatio n rash moderate high 06/29/202211731 3 RxNorm Cristin [place] null[place] - [facility] 2 13:16:36 294635 cefaclor medicatio n Not available Not available low 09/18/20252024 2176 RxNorm Not Available arielle - External Data Service - prod 03:46:01 134731 ciproflox acin medicatio n Not available Not available low 09/18/20252024 2551 RxNorm Not Available rodessa - External Data Service - prod 5 03:46:01 559816 duloxetin e medicatio n Not available Not available Not available 09/18/20252024 43948 RxNorm Tempo rary paral ysis Not Available [facility] External Data Service - prod 5 03:46:01 [...] height Body mass index (BMI) Body weight Oxygen saturation Heart rate Respiratory rate Pain severity - 0-10 verbal numeric rating [Score] - Reported Systolic And Diastolic Provider Name and Address Organization Details Last Updated DateTime 5 160.02 cm 37.8 kg/m2 87849.9 7 g 99 % 68 /min 20 /min 0 118/78 mm[Hg] Cristin Jenkins [place] - [facility] 5 09:54:15 Date Recorded Body height Body mass index (BMI) Body weight Oxygen saturation Respiratory rate Pain severity - 0-10 verbal numeric rating [Score] - Reported Heart rate Systolic And Diastolic Provider Name and Address Organization Details Last Updated DateTime 5 160.02 cm 37.7 kg/m2 62398.1 7 g 95 % 18 /min 0 72 /min 118/70 mm[Hg] Cristin Alice [place] - [facility] 5 10:27:50 Date Recorded Body height Body mass index (BMI) Body weight Respiratory rate Heart rate Oxygen saturation Pain severity - 0-10 verbal numeric rating [Score] - Reported Body temperature Systolic And Diastolic Provider Name and Address Organization Details Last Updated DateTime 5 160.02 cm 38.4 kg/m2 26600.7 5 g 18 /min 64 /min 98 % 7 98 [degF] 112/78 mm[Hg] Cristin Alice [place] - [facility] 5 10:50:11 Date Recorded Body height Body mass index (BMI) Body weight Heart rate Oxygen saturation Respiratory rate Body temperature Systolic And Diastolic Provider Name and Address Organization Details Last Updated DateTime 5 160.02 cm 38.8 kg/m2 19419.7 3 g 58 /min 97 % 18 /min 97.9 [degF] 118/78 mm[Hg] Jadeadelita Michaeldeonna [place] - [facility] 5 08:37:49 Date Recorded Body height Body mass index (BMI) Body weight Respiratory rate Heart rate Oxygen saturation Body temperature Pain severity - 0-10 verbal numeric rating [Score] - Reported Systolic And Diastolic Provider Name and Address Organization Details Last Updated DateTime 5 160.02 cm 37.7 kg/m2 26442.1 7 g 18 /min 78 /min 97 % 97.2 [degF] 0 128/82 mm[Hg] Cristin Alice [place] - [facility] 5 10:31:27 Social History Question Answer Notes LastModified by Organizat ion Details LastModified Time Tobacco Smoking Status Former Smoker Cristin lloyd [place] - [facility] 06/29/2022 12:07:18 Do You [...] Or The Highest Degree You Have Received? [id number] Information not available 01/02/2023 Have There Been Any Changes To Your Family Or Social Situation? No Information no t available 01/02/2023 What Is The Fluoride Status Of Your Home? Unknown Information not available 01/02/2023 When Did You Quit Smoking? 6-10yearssinc elastcirenato e 2016 Information not available 01/02/2023 Have You Recently Or Are You Planning To Travel To An Area With Zika Virus? No Information not available 08/30/2023 Do You Have A Medical Power Of Manager Home Improvement? No Information not available 01/02/2023 What Was [...] anxious, or unable to sleep at night)? [id number] Information not available 09/18/2025 Do you have [...] Y Muscle, Joint, or Bone Problems Y Obesity Y Gout Y Vision or Eye Problems Y Degenerative Disc Disease Y Head Injury/Concussion Y Kidney Stones Y Myocardial Infarction Y Cancer Y Thyroid Problems Y Constipation Y Sleep Apnea Y Hypercholesterolemia Y Heart Disease Y Headaches Y Hypertension [...] PF 025 cancelled patient objection Julio Cesar Dutton, [employer] [address], [place], [address], [place] [facility] 09/18/2025 11:15:11 Tdap 025 completed Cristin Alice null, [place] [facility] 09/18/2025 14:03:14 Pneumococcal conjugate PCV20, polysaccharide NRD812 conjugate, adjuvant, PF 025 cancelled patient objection Julio Cesar Dutton APRN [address], [place], [address], [place] [facility] 09/18/2025 11:15:11 Past Encounters Encounter ID Performer Location Encounter Start Date Encounter Closed Date Diagnosis/Indication Diagnosis SNOMED-CT Code Diagnosis ICD10 Code Diagnosis IMO Codes Diagnosis Note [id number] Julio Cesar Dutton APRN [address] [address] 06/29/2022 11:37:18 06/29/2022 12:25:54 Lumbago with sciatica 411218937 M54.42 restrotate heat and icesteroid s start tomorrowno motrin todayif worsen or no improvemen t return or be seen in ed [id number] Julio Cesar Dutton APRN [address] [address] 10/05/2022 12:56:05 10/05/2022 14:13:24 Hypothyroidism 21502073 E03.9 Myocardial infarction 22 492789 I21.9 Fatigue 13324578 R53.83 Bilateral cramp of muscle of lower limbs 8388977334 2108347 R25.2 [id number] Julio Cesar Dutton APRN [address] [address] 01/02/2023 16:19:45 01/02/2023 17:30:01 Pain of right elbow joint 3073167949 5521878 M25.521 Hypothyroidism 62391998 E03.9 Myocardial infarction 22 376536 I21.A9 last oct 2022 Vitamin D deficiency 347 95506 E55.9 Edema of l ower extremity 998641211 R60.0 follow up with cardiology call make a appointmen t for eval. 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 med discussed in detail with ptkasper reviewed [id number] [facility] [address] 11/08/2023 14:57:22 11/08/2023 16:05:24 Hypothyroidism 93683784 E03.9 Myocardial infarction 22 851595 I21.A9 last oct 2022 Vitamin D deficiency 347 80138 E55.9 Hypercholesterolemia 136 63881 E78.00 Hypertensive disorder 38 588965 I10 Impaired f asting glycemia 306718353 R73.01 Pain of ri ght knee joint 9200496741 14703 M25.233 [id number] [facility] Mcmahancarol ann[address] [address] 11/16/2023 15:12:42 11/16/2023 16:12:15 Long-term drug therapy 114255515 Z79.899 Dyspnea 626118940 R06.00 Body mass index 40+ - severely obese 346068051 Z68.41 Pt compliant with plan of Santosh reviewedme dication compliance discussedL ast uds: 4Control substance agreement on filediscus sed med with pt [id number] [facility], [address] [address] 12/21/2023 09:59:40 12/21/2023 10:45:21 Influenza caused by Influenza B virus 09430304 J10.1 no sign of a bacterial infection. likely viral. viruses can take 7-14 days to run their course.dona al saline and bulb syringe to remove nasal drainage to help with congestion .monitor temp. Tylenol or Motrin as needed for pain or fever.enco urage fluids, water, Gatorade, power aide, Pedialyte if /tod dler/child warm salt water gargleswar m fluidssore throat lozengessl eep elevatedhu midifier/v aporizerfo llow up immediatel y for new or worsening symptoms or no noticeable improvemen t over the next 48-72 hoursdo not take adipex and prednisone at the same time Body mass index 30+ - obesity 813719747 Z68.38 Pt compliant with plan of careKasper reviewedme dication compliance discussedL ast uds: 4Control substance agreement on filediscus sed med with pt [id number] Julio Cesar Dutton [address] [address] 02/21/2024 08:46:13 02/21/2024 09:48:11 Body mass index 30+ - obesity 402629386 Z68.38 Pt compliant with plan of careKasper reviewedme dication compliance discussedL ast uds: 4Control substance agreement on filediscus sed med with pt Hypercholesterolemia 136 26372 E78.00 Hypertensive disorder 38 985128 I10 Vitamin D deficiency 347 65680 E55.9 Hypothyroidism 38214724 E03.9 Prediabetes 947430100 R7 3.03 [id number] Julio Cesar Dutton [address] [address] 07/04/2024 10:20:34 07/04/2024 11:58:29 Body mass index 30+ - obesity 880763197 Z68.38 Pt compliant with plan of careKasper reviewedme dication compliance discussedL ast uds: 4Control substance agreement on filediscus sed med with pt Long-term drug therapy 161512505 Z79.899 Candidiasis of vagina 72 069657 B37.31 Hypertensive disorder 38 065896 I10 Hypothyroidism 45156737 E03.9 Vitamin D deficiency 347 40929 E55.9 Prediabetes 428482272 R7 3.03 [id number] [facility] [place] [address] 1 08/04/2024 11:12:37 08/04/2024 12:02:26 Acute maxillary sinusitis 64801569 J01.00 [id number] [facility] [place] [address] 1 08/08/2024 16:30:27 08/08/2024 16:57:10 Acute maxillary sinusitis 08463010 J01.00 raising HOB, humidifier use, saline nasal spray, rest, encourage PO fluidsReco mmended acetaminop hen/ibupro fen PRN pain, fever;if symptoms worsen or no improvemen t return [id number] [address] [address] 08/19/2024 14:56:11 08/19/2024 16:29:56 Obesity 038853073 E66.9 Body mass index 40+ - severely obese 167227638 Z68.41 Morbid obesity 668240558 E66.01 Myocardial infarction 22 619131 I21.A9 last oct 2022 [id number] [facility] M[address]za[address] [address] 09/25/2024 14:37:20 09/25/2024 15:20:26 COVID-19 798819151 U07.1 no sign of a bacterial infection. likely viral. viruses can take 7-14 days to run their course. nasal saline and bulb syringe to remove nasal drainage to help with congestion . monitor temp. Tylenol or Motrin as needed for pain or fever. encourage fluids, water, Gatorade, power aide, Pedialyte if /tod dler/child warm salt water gargles warm fluids sore throat lozenges sleep elevated humidifier /vaporizer follow up immediatel y for new or worsening symptoms or no noticeable improvemen t over the next 48-72 hours Influenza caused by Influenza B virus 62228395 J10.1 no sign of a bacterial infection. likely viral. viruses can take 7-14 days to run their course.dona al saline and bulb syringe to remove nasal drainage to help with congestion .monitor temp. Tylenol or Motrin as needed for pain or fever.enco urage fluids, water, Gatorade, power aide, Pedialyte if infant/tod dler/child warm salt water gargleswar m fluidssore throat lozengessl eep elevatedhu midifier/v aporizerfo llow up immediatel y for new or worsening symptoms or no noticeable improvemen t over the next 48-72 hours [id number] [place] C[place] [address]164[address] 11/20/2024 10:58:18 11/20/2024 11:55:45 Prediabetes 216539974 R73.03 Hypercholesterolemia 136 23448 E78.00 Hypertensive disorder 38 027457 I10 Vitamin D deficiency 347 83069 E55.9 Hypothyroidism 27560194 E03.9 Myocardial infarction 22 580745 I21.A9 last oct 2022 [id number] [facility] [address] [address] 02/17/2025 10:51:14 02/17/2025 11:39:25 Neck pain 40842377 M54.2 [id number] will do gabapentin trialmrico ntinue ice and heattyleno l or motrin for painwill give valium to take only when pain is moderateif worsen or no improvemen t return [id number] Julio Cesar Dutton [address] [address] 03/03/2025 18:10:45 03/03/2025 18:53:55 Neck pain 13594347 M54.2 [id number] will do gabapentin trialmrico ntinue ice and heattyleno l or motrin for painwill give valium to take only when pain is moderateif worsen or no improvemen t return Backache 921881312 M54.9 M54.30 70891429 will do increase gabapentin trialconti nue ice and heattyleno l or motrin for paindo not take gabapentin with valiumwill give valium to take only when pain is moderateif worsen or no improvemen t returnwill think about PT Long-term current use of drug therapy 017998701 Z79.899 99520002 [id number] Julio Cesar Dutton [address] [address] 03/12/2025 15:45:59 03/12/2025 16:47:31 Hypercholesterolemia 13039638 E78.00 Hypertensive disorder 38 478594 I10 Hypothyroidism 99983160 E03.9 Prediabetes 074453336 R7 3.03 Vitamin D deficiency 347 87485 E55.9 Neck pain 40318389 M54.2 3732129 continue ice and heattyleno l or motrin for painif worsen or no improvemen t returncall cardiology to see if clearance is needed [id number] [facility] [address] [address] 04/09/2025 09:31:59 04/09/2025 10:38:18 History of urinary tract infection 2660027150 107 Z87.868 8191042 Hypertensive disorder 38 484222 I10 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 5135 follow up with neurosurge on [id number] Julio Cesar Dutton [address] [address] 05/07/2025 09:31:44 05/07/2025 11:06:00 Acquired hypothyroidism 925351837 E03.9 77255 Neuropathic pain 6378871 09 M79.2 868694 Pt compliant with plan of careKasper reviewedme dication compliance discussedL ast uds:05/07/25 Control substance agreement on file Long-term current use of drug therapy 986334403 Z79.899 29557205 History of anemia 361712 002 Z86.2 223201 [id number] Julio Cesar Mcmahancarol ann [address] [address] 06/09/2025 10:20:23 06/09/2025 11:51:43 Prediabetes 629993396 R73.03 continue librecheck labs Hypertensive disorder 38 715064 I10 labs Hypothyroidism 87118733 E03.9 labs Vitamin D deficiency 347 89169 E55.9 labs Fatigue 37599637 R53.83 labs Neuropathic pain 0387485 09 M79.2 311808 Pt compliant with plan of careKasper reviewedme dication compliance discussedL ast uds:05/07/25 Control substance agreement on filetrial of increase to bid [id number] Julio Cesar Dutton [address] [address] 07/17/2025 08:27:32 07/17/2025 09:40:05 Vitamin D deficiency 05983884 E55.9 labs Hypercholesterolemia 136 60843 E78.00 Hypothyroidism 45988601 E03.9 labs Viral scre ening status 329014459 Z11.59 395249 HIV screening 279920049 Z11.4 364649 Hypertensive disorder 38 038466 I10 labs Prediabetes 643604543 R7 3.03 check labs Obese class II 029316377 1 50411 E66.812 Z68.38 9246620 38.8 Pain of to e of left foot 6000682916 67452 M79.675 490848 Stiff neck 811759794 M43 .6 98343 ptfollow up with surgeonmus akshat relaxer as neededif worsen or no improvemen t return Obesity 690497377 E66.9 5388306090 [id number] Julio Cesar Mcmahanlisandrogurinder [address] [address] 09/18/2025 09:56:35 09/18/2025 11:38:59 Adult health examination 140723838 Z00.00 Depression screening 171 642589 Z13.31 A depression screening was completed via a standardiz ed screening tool. 5 minutes were spent discussing depression screening results and risk factors. Examinatio n of blood pressure 970961180 Z01.30 Diet education 45922630 Z71.3 Counseling 385404844 Z71 .82 Exercise counseling . Patient encouraged to exercise 30 minutes 5 days a week. [facility] 210024112 Z91.81 STEADI FAST screening score of _0____. Advance care planning [id number] Z71.89 Active immunization [id number] Z23 [id number] HIV screen ing declined [id number] Z53.20 [id number] Health Concerns Section Related Observation LastModified by Organization Detai ls LastModified Time None Recorded Concern Status LastModified by Organization Details LastModified Time None Recorded Advance Directives Directive N: Payers Insurance Date Sequence Insurance Name Policy Number Policy La Covered Member ID La Member ID Guarantor Name 10/05/2022 [id number] Regina Ambriz 11/08/2023 1 [place]ACEMENT [place]IONAL O) [id number] Regina Ambriz [id number] Regina Ambriz 09/15/2025 1 [place] [id number] Regina Ambriz [id number] Regina Ambriz Notes Date Note Type Note Provider Name and Address Organization Details Recorded Time 5 text/html 54 yr old female presents to get repeat labs follow a neck surgery 03/24/25. When she was in the hospital her anion gap was elevated at 13, she had a ph of 5.5 for her urine, she also had a trace of protein, , white cells and red cells in urine. Julio Cesar Dutton, SPEAKING UNIT ASSEMBLER [address], [place], [address], [place] [facility] 04/09/2025 10:27:36 5 text/html 54 yr old female presents for labs- would like her thyroid check and iron checked. Levothyroxine dose was changed about 1 month ago. She also has nerve damage in her right arm and would like to have gabapentin. Her surgeon prescribed a pain med she can not take due to side effects. She states the gabapentin helped before. Julio Cesar Dutton APRN [address], [place], [address], [place] - [facility] 05/07/2025 13:34:19 5 text/html 54 yr old female presents for a follow up on neck pain, needs refill on gabapentin, it helps but still having pain and numbness in hands. Patient also states she is tired and has no energy. She has been wearing a cgm and her glucose has been in the low 50's several times. Julio Cesar Dutton, [employer]AKING UNIT ASSEMBLER [address], [place], [address], [place] - [facility] 06/09/2025 13:55:53 5 text/html ROS as noted in the HPI 54 year old female who presents to the office today for a follow up on high cholesterol, hypothyroidism and low vitamin d has concerns of left great toe pain with walking. pt states she also is having neck pain and cant get into physical therapy till 07/28, pt states it feels like a muscle stiffnesspt would like something to help her lose wt Julio Cesar Dutton APRN [address], [place], [address], [place] - [facility] 07/23/2025 15:57:00 5 text/html Medicare Annual Wellness VisitReported by [...] a medicare annual wellness exam. Julio Cesar Dutton, SPEAKING UNIT ASSEMBLER [address], [place], [address], [place] [facility] 09/18/2025 11:16:47 OBGyn Episode No OBEpisode recorded.
--- OUTSIDE RECORDS SUMMARY | 2025-11-04 14:23 | XMS_ITS | Clinical Summary ---
Author Organization [employer] ([place], [place], [place], [place], [place]) Address [address] [place] [address] Care Team Providers Care Assistant Women'S Tennis Coach Name Role Phone Julio Cesar Donaldson Primary Care Provider [phone] Allergies Active Allergy Reactions Criticality Noted Date [...] 1988 DTAP/TDAP/TD VACCINES (1 - Tdap) 1989 Pneumococcal 50+ years (1 of 2 - PCV) 1989 Pap Smear 1991 Breast Cancer Screening 2010 Lipid Panel 2015 Shingles Vaccine (Zoster) (1 of 2) 2020 Medicare IPPE (Welcome to Medicare) [id number] 11/05/2024 COVID-19 VACCINE ( season) 2025 Influenza Vaccine (#1) 2025 Medical Devices Implanted Type Area Telecommunications Manager Device Identifier Shelf Expiration Date Model / Serial / Lot Bone Vivigen Formable [id number] - [id number] Implanted:Qty : 1 on 03/24/2025 by Edda Carrizales MD at [facility] IMPLANTS N/A: Spine Cervical LIFENET:LIFENET TRANSPLANT SRV 11/21/2025 [id number] / Cage Stalif 12x5.5mm 6d 16ml [id number] - [id number] Implanted:Qty : 3 on 03/24/2025 by Edda Carrizales MD at [facility] IMPLANTS N/A: Spine Cervical [employer] 06/02/2027 [id number] / / [id number] Scr Abo Long 4x16mm [id number] - [id number] Implanted:Qty : 9 on 03/24/2025 by Edda Carrizales MD at [facility] IMPLANTS N/A: Spine Cervical [employer] 11/15/2027 [id number] / / [id number] Insurance [facility] ACCESS HMO MAP Advance Directives For more information, please contact: [phone] * Full Code (Latest Code Status on File) Date Activated Date Inactivated Comments 03/24/2025 10:45 AM 03/25/2025 3:36 PM Care Teams Assistant Women'S Tennis Coach Relationship Specialty Start Date End Date Julio Cesar Donaldson [address] [place] [address] PCP - General 03/24/25
== END 2025-11-04 23:59 | disposition home or self-care (01) ==
LOC: RAD 14:21
PROVIDERS: PCP Nurse Practitioner Family; Visit Provider Nurse Practitioner Family
DX: Z12.31 Encounter for screening mammogram for malignant neoplasm of breast (principal); R92.323 Mammographic fibroglandular density, bilateral breasts
CPT/HCPCS: 77063; 77067